=== PATIENT | female | born 1940 | race Caucasian/White ===

== ENCOUNTER 2016-08-15 12:36 | Emergency (ER) | payer MEDICARE, BC, OTHER ==
--- NOTE | 2016-08-15 13:15 | ED ---
Upper Extremity Pain - HPI Summary HPI Summary: Patient is a 76 year old female who states she was outside smoking this morning around 10:30 when she fell from standing from a sitting position on a rock. This was stated after she mentioned at first she was on a chair. She denies LOC , denies blacking out or passing out. She is not on a blood thinner and she denies low blood pressure at baseline. She is left hand dominant. She feels that after she arrived in the ED, the pain decreased in severity. The worst pain she notes is over the ulnar styloid, however she feels she hit her forearm too. She denies elbow pain, shoulder pain or finger pain. She denies numbness or tingling. - History of Current Complaint Hx Obtained From: Patient Mechanism Of Injury: Blunt Trauma, Fall From Height Of: - sitting position from a rock Onset/Duration: Started Hours Ago - 10:30am (about 3 hours ago) Timing: Constant Severity Initially: Moderate Severity Currently: Mild Pain Location: Forearm, Wrist Character: Sharp - over the wrist Aggravating Factor(s): Internal/External Rotation Alleviating Factor(s): Nothing Associated Signs & Symptoms: Positive: Swelling - over the medial wrist Related History: Dominant Hand Left - Risk Factors Non-Orthopedic Risk Factor: Negative DVT Risk Factors: Smoking Septic Arthritis Risk Factor: Negative Compartment Syndrome Risk Factors: Pain <Iraida Hernandez - Last Filed: 08/15/16 13:52> <Iván Dangelo - Last Filed: 08/15/16 14:57> - History of Current Complaint Chief Complaint: EDExtremityUpper Stated Complaint: RT ARM INJURY - Allergies/Home Medications Allergies/Adverse Reactions: Allergies Allergy/AdvReac Type Severity Reaction Status Date / Time Aspirin AdvReac ABDOMINAL Verified 08/15/16 12:49 DISCOMFORT PMH/Surg Hx/FS Hx/Imm Hx Previously Healthy: Yes Endocrine/Hematology History: Denies: Hx Anticoagulant Therapy, Hx Diabetes, Hx Thyroid Disease Cardiovascular History: Reports: Hx Hypercholesterolemia Denies: Hx Hypertension, Hx Pacemaker/ICD Respiratory History: Reports: Hx Asthma, Hx Chronic Obstructive Pulmonary Disease (COPD) GI History: Reports: Hx Gastroesophageal Reflux Disease, Hx Hiatal Hernia History: Reports: Other Problems/Disorders - urinary incontience Denies: Hx Renal Disease Musculoskeletal History: Reports: Hx Rheumatoid Arthritis, Hx Osteoporosis Sensory History: Denies: Hx Hearing Aid Neurological History: Denies: Hx Dementia, Hx Seizures Psychiatric History: Reports: Hx Depression, Hx Schizophrenia Denies: Hx Panic Disorder, Hx Substance Abuse - Surgical History Surgery Procedure, Year, and Place: bilat ankle fractures - L 12 yrs ago; R 3 yrs ago - Immunization History Date of Tetanus Vaccine: unk Infectious Disease History: No Infectious Disease History: Denies: Hx Hepatitis, Hx Human Immunodeficiency Virus (HIV), Traveled Outside the [place] in Last 30 Days - Social History Alcohol Use: None Substance Use Type: Reports: None Hx Tobacco Use: Yes Smoking Status (MU): Heavy Every Day Tobacco Smoker Type: Cigarettes <David,Iraida Celine - Last Filed: 08/15/16 13:52> Review of Systems Constitutional: Negative Cardiovascular: Negative Positive: Shortness Of Breath - at baseline. On 3L O2 at home Gastrointestinal: Negative Positive: Arthralgia, Myalgia Positive: Other - swelling over medial wrist Neurological: Negative Psychological: Normal All Other Systems Reviewed And Are Negative: Yes <DavidIraida - Last Filed: 08/15/16 13:52> Physical Exam - Summary Physical Exam Summary: Appearance: WDW, comfortable, pleasant, alert Skin: Soft dry skin, no lesions. Nailbeds pink with no cyanosis or clubbing. Eyes: AYANA, EOMI, Conjunctiva pink with no redness or exudates. Mouth: Dry mucosa Neck: Full range of motion. Thyroid not palpable. Trachea at midline. No lymphadenopathy. Pulm: Chest symmetrical expansion. No deformities on posterior chest wall. Oxygen at home/baseline. decreased breath sounds. CV: No JVD. No deformities on anterior chest wall. Heart sounds-RRR, Normal. Musculoskeletal: Full range of motion in lower extremities. Limited ROM of right wrist rotation. Normal flexion and extension of L wrist/ R wrist. Elbow without abnormalities, swelling. R elbow with normal ROM of flexion and extension. Pulses full and equal. No calf tenderness Neuro: Motor strength is 5/5 in upper and lower extremities bilaterally. A&OX3 Derm: No rashes or lesions noted. Psych: Logical, coherent Triage Information Reviewed: Yes Vital Signs On Initial Exam: Initial Vitals Temp Pulse Resp BP Pulse Ox 98.7 F 70 16 141/58 99 08/15/16 12:47 08/15/16 12:47 08/15/16 12:47 08/15/16 12:47 08/15/16 12:47 Vital Signs Reviewed: Yes Appearance: Positive: Well-Appearing, No Pain Distress, Thin, Cachectic Skin: Positive: Warm, Dry, Soft Head/Face: Positive: Normal Head/Face Inspection Eyes: Positive: Normal, EOMI, AYANA Neck: Positive: Supple, Nontender, No Lymphadenopathy Respiratory/Lung Sounds: Positive: Decreased Breath Sounds, Wheezes Cardiovascular: Positive: Normal, RRR Musculoskeletal: Positive: Limited @ - right wrist rotation/ flexion and extension of wrist OK, Pain @ - ulnar styloid <Iraida Hernandez - Last Filed: 08/15/16 13:52> Vital Signs On Initial Exam: Initial Vitals Temp Pulse Resp BP Pulse Ox 98.7 F 70 16 141/58 99 08/15/16 12:47 08/15/16 12:47 08/15/16 12:47 08/15/16 12:47 08/15/16 12:47 <Iván Dangelo - Last Filed: 08/15/16 14:57> Diagnostics - Vital Signs Vital Signs Temp Pulse Resp BP Pulse Ox 08/15/16 12:47 98.7 F 70 16 141/58 99 <Iraida Hernandez - Last Filed: 08/15/16 13:52> - Vital Signs Vital Signs Temp Pulse Resp BP Pulse Ox 08/15/16 14:43 98.8 F 08/15/16 14:39 60 97 08/15/16 14:37 157/63 08/15/16 14:31 169/132 08/15/16 14:00 143/113 08/15/16 13:30 110/59 08/15/16 13:14 67 99 08/15/16 13:10 64 99 08/15/16 13:09 146/80 08/15/16 12:47 98.7 F 70 16 141/58 99 <Iván Dangelo - Last Filed: 08/15/16 14:57> Course/Dx <Iraida Hernandez - Last Filed: 08/15/16 13:52> - Diagnoses Differential Diagnosis/HQI/PQRI: Positive: Contusion, Fracture (Closed) <Iván Dangelo - Last Filed: 08/15/16 14:57> - Diagnoses Provider Diagnoses: Contusion of right wrist Discharge <Iraida Hernandez - Last Filed: 08/15/16 13:52> <Iván Dangelo - Last Filed: 08/15/16 14:57> - Discharge Plan Condition: Stable Disposition: HOME Patient Education Materials: Wrist Injury (ED) Referrals: Valentino Correia MD [Primary Care Provider] - Additional Instructions: Dx: Wrist injury/contusion Rest, Ice and elevation. If symptoms persist, follow up with your PCP. Continue to wear brace today as needed for limited movement for comfort.
--- NOTE | 2016-08-15 13:34 | RAD ---
INDICATION: Fall. Wrist injury COMPARISON: None TECHNIQUE: AP, lateral, and oblique views were obtained. FINDINGS: There is no convincing evidence of acute fracture. There is osteoarthritic change about the radiocarpal joint with sclerosis and irregularities about the radial styloid. There are irregularities about the distal pole of the navicular and the carpometacarpal articulation articulation. No additional findings. IMPRESSION: ADVANCED OSTEOARTHRITIC CHANGE ABOUT THE RADIAL ASPECT OF THE HAND AND WRIST. SUGGEST FOLLOW-UP INDICATED.
[2016-08-15 14:41] VITALS: BP 157/63
--- NOTE | 2016-08-15 14:57 | ED ---
Marcos Correa Soohyun, scribed for Iván Dangelo MD on 08/15/16 at 1319 . Progress - Progress Note Progress Note: This 76 y/o female presents to ED for RUE wrist injury after falling from 3-4 feet. Pt states that she was sitting outside smoking cigarette [employer] and attempting to stand up from sitting position when she loss her balance and fell to her right side. She is not complaining of right wrist pain. She is left-hand- dominant. X-ray RUE wrist is currently pending. - EKG/XRAY/CT XRAY: RUE wrist Xray Comments: NEGATIVE FX. Physical Exam - Summary Physical Exam Summary: The patient is well-nourished in no acute distress and in no acute pain. The skin is warm and dry and skin color reflects adequate perfusion. HEENT: The head is normocephalic and atraumatic. The pupils are equal and reactive. Neck is supple with full range of motion and non-tender. Respiratory: Chest is non-tender. Breath sounds present. Musculoskeletal: mild swelling at right distal radius. FROM. No shoulder or elbow involvement. No snuff box tenderness. Neurological: Patient is alert and oriented to person, place and time. The patient has symmetrical motor strength in all four extremities. Cranial nerves are grossly intact. Deep tendon reflexes are symmetrical and equal in all four extremities. Psychiatric: The patient has an appropriate affect and does not exhibit any anxiety or depression. Triage Information Reviewed: Yes Vital Signs On Initial Exam: Initial Vitals Temp Pulse Resp BP Pulse Ox 98.7 F 70 16 141/58 99 08/15/16 12:47 08/15/16 12:47 08/15/16 12:47 08/15/16 12:47 08/15/16 12:47 Vital Signs Reviewed: Yes Re-Evaluation - Re-Evaluation First Eval Re-Evaluation Time: 14:01 Comment: in room with ALEXY Hernandez to re-evaluate the pt. Course/Dx - Course Course Of Treatment: X-ray result indicates negative Fx on RUE wrist. Pt will be discharged home with splint and outpatient f/u with his PCP. Pt was re- evaluated and shared with X-ray imaging result. Plan of care is discussed. Dx is contusion at RUE wrist. - Diagnoses Provider Diagnoses: Contusion of right wrist The documentation as recorded by the scribeMarcos Soohyun accurately reflects the service I personally performed and the decisions made by me, Iván Dangelo MD.
== END 2016-08-15 14:43 | disposition home or self-care (01) ==
LOC: ED 12:36
DX: S60.211A Contusion of right wrist, initial encounter (principal); W17.89XA Other fall from one level to another, initial encounter; Y92.9 Unspecified place or not applicable; F17.210 Nicotine dependence, cigarettes, uncomplicated
CPT/HCPCS: 99282

== ENCOUNTER 2017-10-25 20:30 | Emergency (ER) | payer MEDICARE, OTHER ==
[2017-10-25] MEDS ORDERED: Acetaminophen TAB* 325 MG PO ONE (21:13)
[2017-10-25] MEDS ORDERED: Albuterol/Ipratropium NEB.SOL* Albuterol 2.5 MG/Ipratropium 0.5 MG 3 ML INH PRN (21:13)
[2017-10-25] MEDS ORDERED: Albuterol 2.5 MG/3 ML NEB.SOL* (0.083%) INH PRN (21:13)
[2017-10-25] MEDS ORDERED: NS 0.9% 1000 ML* 1,000 ML IV ONE (21:15)
--- NOTE | 2017-10-25 21:45 | RAD ---
INDICATION: Shortness of breath. COMPARISON: Comparison is made with a prior study from December 18, 2014. TECHNIQUE: A portable view of the chest was obtained. FINDINGS: The heart is within normal limits in size. There is a retrocardiac density which is unchanged most consistent with a hiatal hernia. The lungs are underinflated and clear. No pleural effusion is seen. IMPRESSION: NO EVIDENCE FOR ACUTE DISEASE.
[2017-10-25 22:04] LABS: ABS Basophils 0.1 10^3/ul (0-0.2); ABS Eosinophils 0.1 10^3/ul (0-0.6); ABS Lymphocytes 2.2 10^3/ul (1.0-4.8); ABS Monocytes 0.5 10^3/ul (0-0.8); ABS Neutrophils 5.6 10^3/ul (1.5-7.7); ABS Nucleated RBC 0 10^3/ul; Eosinophil % 1.1 % (0-6); Hematocrit 37 % (35-47); Hemoglobin 11.6 g/dl (12.0-16.0); Mean Corpuscular HGB Conc 32 g/dl (31-36); Mean Corpuscular Hemoglobin 25 pg (27-31); Mean Corpuscular Volume 80 fL (80-97); Mean Platelet Volume 9 um3 (7.4-10.4); Nucleated Red Blood Cells % 0.2; Platelet Count 212 10^3/ul (150-450); Red Blood Count 4.58 10^6/ul (4.0-5.4); Red Cell Distribution Width 20 % (10.5-15); White Blood Count 8.6 10^3/ul (3.5-10.8)
[2017-10-25 22:06] LABS: Urine Appearance Clear; Urine Blood Negative (Negative); Urine Color Yellow; Urine Ketones Negative (Negative); Urine Protein Negative (Negative); Urine Specific Gravity 1.012 (1.010-1.030); Urine Urobilinogen Negative (Negative)
[2017-10-25 22:13] LABS: INR 0.93 (0.77-1.02)
[2017-10-25 22:20] LABS: EGFR Non-African American 114.6 (>60)
--- NOTE | 2017-10-25 23:43 | ED ---
Keon Correa Abhishek, scribed for Lisa Luque MD on 10/25/17 at 2308 . HPI Febrile Illness - HPI Summary HPI Summary: The pt is a 77 y/o female with a chief complaint of a fever. The pt has had symptoms since one hour ago. She lives in a long-term. The patient rates the pain 0/10 in severity. Symptoms aggravated by nothing. Symptoms alleviated by nothing. Patient reports SOB. Patient denies vomiting, and coughing. O2 liters at home (3 L). No medications taken according to the pt. Pertinent PMHX includes COPD and CVA 3 y ago. - History of Current Complaint Chief Complaint: EDFluSymptoms Time Seen by Provider: 10/25/17 20:54 Pain Intensity: 0 - Allergy/Home Medications Allergies/Adverse Reactions: Allergies Allergy/AdvReac Type Severity Reaction Status Date / Time MS Aspirin [Aspirin] AdvReac ABDOMINAL Verified 08/15/16 12:49 DISCOMFORT Home Medications: Home Medications Alendronate (NF) [Fosamax (NF)] 70 mg PO WEEKLY 10/25/17 [History Confirmed ] Calcium Carbonate/Vitamin D2 [Oyster Shell Calcium-Vit D Tab] 1 each PO BID [History Confirmed 10/25/17] Omeprazole CAP* [Prilosec CAP* 20 MG] 40 mg PO DAILY 10/25/17 [History Confirmed 10/25/17] PMH/Surg Hx/FS Hx/Imm Hx Endocrine/Hematology History: Denies: Hx Anticoagulant Therapy, Hx Diabetes, Hx Thyroid Disease Cardiovascular History: Reports: Hx Hypercholesterolemia Denies: Hx Hypertension, Hx Pacemaker/ICD Respiratory History: Reports: Hx Asthma, Hx Chronic Obstructive Pulmonary Disease (COPD) GI History: Reports: Hx Gastroesophageal Reflux Disease, Hx Hiatal Hernia History: Reports: Other Problems/Disorders - urinary incontience Denies: Hx Renal Disease Musculoskeletal History: Reports: Hx Rheumatoid Arthritis, Hx Osteoporosis Sensory History: Denies: Hx Hearing Aid Neurological History: Denies: Hx Dementia, Hx Seizures Psychiatric History: Reports: Hx Depression, Hx Schizophrenia Denies: Hx Panic Disorder, Hx Substance Abuse - Surgical History Surgery Procedure, Year, and Place: bilat ankle fractures - L 12 yrs ago; R 3 yrs ago - Immunization History Date of Tetanus Vaccine: unk Infectious Disease History: No Infectious Disease History: Denies: Hx Hepatitis, Hx Human Immunodeficiency Virus (HIV), Traveled Outside the [place] in Last 30 Days - Family History Family History: Bone Marrow Cancer;. FHx reviewed and non contributory - Social History Alcohol Use: None Substance Use Type: Reports: None Hx Tobacco Use: Yes Smoking Status (MU): Heavy Every Day Tobacco Smoker Type: Cigarettes Review of Systems Positive: Fever Eyes: Negative ENT: Negative Cardiovascular: Negative Positive: Shortness Of Breath. Negative: Cough Negative: Vomiting Genitourinary: Negative Musculoskeletal: Negative Skin: Negative Neurological: Negative Psychological: Normal All Other Systems Reviewed And Are Negative: Yes Physical Exam - Summary Physical Exam Summary: VITAL SIGNS: Reviewed. GENERAL: ~Patient is a well-developed and nourished (FEMALE) who is lying comfortable in the stretcher. Patient is not in any acute respiratory distress. HEAD AND FACE: No signs of trauma. No ecchymosis, hematomas or skull depressions. No sinus tenderness. EYES: PERRLA, EOMI x 2, No injected conjunctiva, no nystagmus. EARS: Hearing grossly intact. Ear canals and tympanic membranes are within normal limits. MOUTH: Oropharynx within normal limits. NECK: Supple, trachea is midline, no adenopathy, no JVD, no carotid bruit, no c- spine tenderness, neck with full ROM. CHEST: Symmetric, n SKIN: Dry and warm o tenderness at palpation LUNGS: Decreased breath sounds bilaterally CVS: Regular rate and rhythm, S1 and S2 present, no murmurs or gallops appreciated. ABDOMEN: Soft, non-tender. No signs of distention. No rebound no guarding, and no masses palpated. Bowel sounds are normal. EXTREMITIES: FROM in all major joints, no edema, no cyanosis or clubbing, NEURO: Pt has dysarthria old, body aches and pains Triage Information Reviewed: Yes Vital Signs On Initial Exam: Initial Vitals Temp Pulse Resp BP Pulse Ox 99.1 F 71 24 167/75 96 10/25/17 20:47 10/25/17 20:47 10/25/17 20:47 10/25/17 20:47 10/25/17 20:47 Vital Signs Reviewed: Yes Diagnostics - Vital Signs Vital Signs Temp Pulse Resp BP Pulse Ox 10/25/17 22:54 61 12 99 10/25/17 20:47 99.1 F 71 24 167/75 96 - Laboratory Lab Results: Lab Results 10/25/17 10/25/17 10/25/17 Range/Units 21:45 21:45 21:45 WBC (3.5-10.8) 10^3/ul RBC (4.0-5.4) 10^6/ul Hgb (12.0-16.0) g/dl Hct (35-47) % MCV (80-97) fL MCH (27-31) pg MCHC (31-36) g/dl RDW (10.5-15) % Plt Count (150-450) 10^3/ul MPV (7.4-10.4) um3 Neut % (Auto) (38-83) % Lymph % (Auto) (25-47) % Weston % (Auto) (0-7) % Eos % (Auto) (0-6) % Baso % (Auto) (0-2) % Absolute Neuts (auto) (1.5-7.7) 10^3/ul Absolute Lymphs (auto) (1.0-4.8) 10^3/ul Absolute Monos (auto) (0-0.8) 10^3/ul Absolute Eos (auto) (0-0.6) 10^3/ul Absolute Basos (auto) (0-0.2) 10^3/ul Absolute Nucleated RBC 10^3/ul Nucleated RBC % INR (Anticoag Therapy) 0.93 (0.77-1.02) APTT 37.5 H (26.0-36.3) seconds Sodium 136 (133-145) mmol/L Potassium 3.9 (3.5-5.0) mmol/L Chloride 100 L (101-111) mmol/L Carbon Dioxide 32 (22-32) mmol/L Anion Gap 4 (2-11) mmol/L BUN 13 (6-24) mg/dL Creatinine 0.52 (0.51-0.95) mg/dL Est GFR ( Amer) 147.4 (>60) Est GFR (Non-Af Amer) 114.6 (>60) BUN/Creatinine Ratio 25.0 H (8-20) Glucose 96 (70-100) mg/dL Lactic Acid (0.5-2.0) mmol/L Calcium 9.4 (8.6-10.3) mg/dL Total Bilirubin 0.40 (0.2-1.0) mg/dL AST 14 (13-39) U/L ALT 10 (7-52) U/L Alkaline Phosphatase 49 (34-104) U/L Total Creatine Kinase 92 (10-223) U/L Troponin I 0.01 (<0.04) ng/mL C-Reactive Protein 1.99 (< 5.00) mg/L Total Protein 7.0 (6.4-8.9) g/dL Albumin 3.9 (3.2-5.2) g/dL Globulin 3.1 (2-4) g/dL Albumin/Globulin Ratio 1.3 (1-3) Urine Color Yellow Urine Appearance Clear Urine pH 7.0 (5-9) Ur Specific Hull 1.012 (1.010-1.030) Urine Protein Negative (Negative) Urine Ketones Negative (Negative) Urine Blood Negative (Negative) Urine Nitrate Negative (Negative) Urine Bilirubin Negative (Negative) Urine Urobilinogen Negative (Negative) Ur Leukocyte Esterase Negative (Negative) Urine Glucose Negative (Negative) Influenza A (Rapid) (Negative) Influenza B (Rapid) (Negative) 10/25/17 10/25/17 10/25/17 Range/Units 21:45 21:45 22:12 WBC 8.6 (3.5-10.8) 10^3/ul RBC 4.58 (4.0-5.4) 10^6/ul Hgb 11.6 L (12.0-16.0) g/dl Hct 37 (35-47) % MCV 80 (80-97) fL MCH 25 L (27-31) pg MCHC 32 (31-36) g/dl RDW 20 H (10.5-15) % Plt Count 212 (150-450) 10^3/ul MPV 9 (7.4-10.4) um3 Neut % (Auto) 65.8 (38-83) % Lymph % (Auto) 26.0 (25-47) % Weston % (Auto) 6.1 (0-7) % Eos % (Auto) 1.1 (0-6) % Baso % (Auto) 1.0 (0-2) % Absolute Neuts (auto) 5.6 (1.5-7.7) 10^3/ul Absolute Lymphs (auto) 2.2 (1.0-4.8) 10^3/ul Absolute Monos (auto) 0.5 (0-0.8) 10^3/ul Absolute Eos (auto) 0.1 (0-0.6) 10^3/ul Absolute Basos (auto) 0.1 (0-0.2) 10^3/ul Absolute Nucleated RBC 0 10^3/ul Nucleated RBC % 0.2 INR (Anticoag Therapy) (0.77-1.02) APTT (26.0-36.3) seconds Sodium (133-145) mmol/L Potassium (3.5-5.0) mmol/L Chloride (101-111) mmol/L Carbon Dioxide (22-32) mmol/L Anion Gap (2-11) mmol/L BUN (6-24) mg/dL Creatinine (0.51-0.95) mg/dL Est GFR ( Amer) (>60) Est GFR (Non-Af Amer) (>60) BUN/Creatinine Ratio (8-20) Glucose (70-100) mg/dL Lactic Acid 0.6 (0.5-2.0) mmol/L Calcium (8.6-10.3) mg/dL Total Bilirubin (0.2-1.0) mg/dL AST (13-39) U/L ALT (7-52) U/L Alkaline Phosphatase (34-104) U/L Total Creatine Kinase (10-223) U/L Troponin I (<0.04) ng/mL C-Reactive Protein (< 5.00) mg/L Total Protein (6.4-8.9) g/dL Albumin (3.2-5.2) g/dL Globulin (2-4) g/dL Albumin/Globulin Ratio (1-3) Urine Color Urine Appearance Urine pH (5-9) Ur Specific Hull (1.010-1.030) Urine Protein (Negative) Urine Ketones (Negative) Urine Blood (Negative) Urine Nitrate (Negative) Urine Bilirubin (Negative) Urine Urobilinogen (Negative) Ur Leukocyte Esterase (Negative) Urine Glucose (Negative) Influenza A (Rapid) Negative (Negative) Influenza B (Rapid) Negative (Negative) Result Diagrams: 10/25/17 21:45 10/25/17 21:45 Lab Statement: Any lab studies that have been ordered have been reviewed, and results considered in the medical decision making process. - Radiology Chest X-ray Radiology Interpretation Completed By: Radiologist - CXR reveals, per radiologist, NO EVIDENCE FOR ACUTE DISEASE. ED physician has reviewed this radiology report and agrees. Course/Dx - Course Course Of Treatment: The pt is a 77 y/o female with a chief complaint of a fever. The pt also reports of SOB and has a pertinent PMHx of COPD and CVA. A chest x-ray was taken in the [facility]. The pt will be discharged home with a dx of flu-like illness and viral syndrome. We recommended taking tylenol as needed for fever. - Diagnoses Provider Diagnoses: Flu-like symptoms, Viral syndrome Discharge - Discharge Plan Condition: Stable Disposition: HOME Patient Education Materials: Fever in Adults (ED), Viral Syndrome (ED) Referrals: Valentino Correia MD [Primary Care Provider] - (Follow up with PCP within 1 to 2 days.) Additional Instructions: RETURN TO EMERGENCY DEPARTMENT FOR ANY NEW OR WORSENING SYMPTOMS The documentation as recorded by the Keon orozco Abhishek accurately reflects the service I personally performed and the decisions made by me, Lisa Luque MD.
[2017-10-25 23:51] VITALS: BP 141/63
== END 2017-10-26 00:08 | disposition home or self-care (01) ==
LOC: ED 20:30
DX: J11.1 Influenza due to unidentified influenza virus with other respiratory manifestations (principal); B34.9 Viral infection, unspecified; R50.9 Fever, unspecified; Z87.19 Personal history of other diseases of the digestive system; F17.210 Nicotine dependence, cigarettes, uncomplicated; R06.02 Shortness of breath
CPT/HCPCS: 36415; 71045; 80053; 81003; 82550; 83605; 84484; 85025; 85610; 85730; 86140; 87040; 87502; 94640; 99283; A9270-GY

== ENCOUNTER 2017-11-07 20:20 | Emergency (ER) | payer MEDICARE, MEDICAID ==
[2017-11-07] MEDS ORDERED: NS 0.9% 1000 ML* 1,000 ML IV ONE (20:45)
[2017-11-07 21:13] LABS: ABS Basophils 0.1 10^3/ul (0-0.2); ABS Eosinophils 0.2 10^3/ul (0-0.6); ABS Lymphocytes 2.1 10^3/ul (1.0-4.8); ABS Monocytes 0.5 10^3/ul (0-0.8); ABS Neutrophils 4.3 10^3/ul (1.5-7.7); ABS Nucleated RBC 0 10^3/ul; Eosinophil % 2.3 % (0-6); Hematocrit 34 % (35-47); Hemoglobin 11.1 g/dl (12.0-16.0); Lymphocyte % 28.8 % (25-47); Mean Corpuscular HGB Conc 32 g/dl (31-36); Mean Corpuscular Hemoglobin 26 pg (27-31); Mean Corpuscular Volume 80 fL (80-97); Mean Platelet Volume 8.7 um3 (7.4-10.4); Nucleated Red Blood Cells % 0; Platelet Count 186 10^3/ul (150-450); Red Blood Count 4.29 10^6/ul (4.0-5.4); Red Cell Distribution Width 20 % (10.5-15); White Blood Count 7.2 10^3/ul (3.5-10.8)
--- NOTE | 2017-11-07 21:23 | RAD ---
INDICATION: Weakness and shortness of breath COMPARISON: Most recent comparison chest x-ray is dated October 25, 2017 TECHNIQUE: PA and lateral views of the chest were obtained. FINDINGS: The heart and mediastinum are normal in size and contour. The lungs are grossly clear. There is no evidence of large pleural effusion. Visualized bones are normal for the patient's age. Lateral view images reveal and at least moderate size hiatal hernia. There is no radiographic evidence of free air beneath the diaphragm IMPRESSION: No radiographic evidence of acute cardiopulmonary disease.
[2017-11-07 21:24] LABS: Urine Appearance Clear; Urine Blood Negative (Negative); Urine Color Yellow; Urine Ketones Negative (Negative); Urine Protein Negative (Negative); Urine Specific Gravity 1.014 (1.010-1.030); Urine Urobilinogen Negative (Negative)
[2017-11-07 21:27] LABS: EGFR Non-African American 97.2 (>60)
[2017-11-07 21:44] VITALS: BP 129/59
--- NOTE | 2017-11-08 04:29 | ED ---
Andrew Correa Nilda, scribed for Matias Morales MD on 11/07/17 at 2050 . Complex/Multi-Sys Presentation - HPI Summary HPI Summary: This patient is a 77 year old F BIBA from [facility] with a chief complaint of constant acute generalized weakness this evening. The patient rates the pain 0/10 in severity. Symptoms aggravated and alleviated by nothing. Patient reports fever, suprapubic abd pain, and cough. She denies CP, N/V, and abnormal urinary symptoms. Pt is on home O2. Pt states she is a smoker. On review of records, pt was here on the 10/25/17 for same complaints with normal lab results. - History Of Current Complaint Chief Complaint: EDWeakness Time Seen by Provider: 11/07/17 20:33 Hx Obtained From: Patient, Medical Records Onset/Duration: Sudden Onset, Lasting Hours, Still Present Timing: Constant Location: Pain At: - suprapubic abd pain Aggravating Factor(s): nothing Alleviating Factor(s): nothing Associated Signs And Symptoms: Positive: Other - generalized weakness, fever, abd pain, and cough. She denies CP, N/V, and abnormal urinary symptoms - Allergies/Home Medications Allergies/Adverse Reactions: Allergies Allergy/AdvReac Type Severity Reaction Status Date / Time aspirin Allergy Abdominal Verified 11/07/17 21:43 Pain Home Medications: Home Medications Alendronate (NF) [Fosamax (NF)] 70 mg PO WEEKLY 11/07/17 [History Confirmed ] Aspirin EC Low Dose* [Ecotrin EC Low Dose 81 MG*] 81 mg PO DAILY 11/07/17 [ History Confirmed 11/07/17] Atorvastatin* [Lipitor*] 40 mg PO DAILY 11/07/17 [History Confirmed 11/07/17] Calcium Carbonate/Vitamin D2 [Oyster Shell Calcium-Vit D Tab] 1 tab PO BID 11/07 [History Confirmed 11/07/17] Docusate CAP* [Colace Cap*] 200 mg PO DAILY 11/07/17 [History Confirmed 11/07/17 ] Ibuprofen TAB* [Motrin TAB* 600 MG] 600 mg PO Q6H PRN 11/07/17 [History Confirmed 11/07/17] Nicotine PATCH 14 MG/24 HR* 14 mg TRANSDERM DAILY 11/07/17 [History Confirmed ] OLANzapine TAB* [Zyprexa 10 MG TAB*] 15 mg PO DAILY 11/07/17 [History Confirmed 11/07/17] Omeprazole CAP* [Prilosec CAP* 20 MG] 40 mg PO DAILY 11/07/17 [History Confirmed 11/07/17] Oxybutynin TAB* [Ditropan TAB*] 5 mg PO TID 11/07/17 [History Confirmed 11/07/17 ] PARoxetine HCL TAB* [Paxil TAB*] 30 mg PO DAILY 11/07/17 [History Confirmed ] Tiotropium CAP.INH* [Spiriva CAP.INH*] 1 cap PO DAILY 11/07/17 [History Confirmed 11/07/17] PMH/Surg Hx/FS Hx/Imm Hx Endocrine/Hematology History: Denies: Hx Anticoagulant Therapy, Hx Diabetes, Hx Thyroid Disease Cardiovascular History: Reports: Hx Hypercholesterolemia Denies: Hx Hypertension, Hx Pacemaker/ICD Respiratory History: Reports: Hx Asthma, Hx Chronic Obstructive Pulmonary Disease (COPD) GI History: Reports: Hx Gastroesophageal Reflux Disease, Hx Hiatal Hernia History: Reports: Other Problems/Disorders - urinary incontience Denies: Hx Renal Disease Musculoskeletal History: Reports: Hx Rheumatoid Arthritis, Hx Osteoporosis Sensory History: Denies: Hx Hearing Aid Neurological History: Denies: Hx Dementia, Hx Seizures Psychiatric History: Reports: Hx Depression, Hx Schizophrenia Denies: Hx Panic Disorder, Hx Substance Abuse - Surgical History Surgery Procedure, Year, and Place: bilat ankle fractures - L 12 yrs ago; R 3 yrs ago - Immunization History Date of Tetanus Vaccine: unk Infectious Disease History: No Infectious Disease History: Denies: Hx Hepatitis, Hx Human Immunodeficiency Virus (HIV), Traveled Outside the [place] in Last 30 Days - Family History Family History: Bone Marrow Cancer;. FHx reviewed and non contributory - Social History Occupation: Retired Lives: Assisted Living - [facility] Alcohol Use: None Substance Use Type: Reports: None Hx Tobacco Use: Yes Smoking Status (MU): Heavy Every Day Tobacco Smoker Type: Cigarettes Review of Systems Positive: Fever Negative: Chest Pain Positive: Cough Positive: Abdominal Pain - suprapubic. Negative: Vomiting, Nausea Positive: no symptoms reported Positive: Weakness All Other Systems Reviewed And Are Negative: Yes Physical Exam - Summary Physical Exam Summary: Appearance: Well appearing, no pain distress Skin: warm, dry, reflects adequate perfusion Head/face: normal Eyes: EOMI, AYANA ENT: normal, Moist mucous membranes Neck: supple, non-tender Respiratory: breath sounds present, Very mild expiratory wheezes in left base, Globally diminished breath sounds. Cardiovascular: RRR, pulses symmetrical Abdomen: non-tender, soft; Pt states suprapubic pain but no tenderness on palpation Bowel Sounds: present Musculoskeletal: normal, strength/ROM intact Neuro: Mild cognitive impairment, no focal deficit. Triage Information Reviewed: Yes Vital Signs On Initial Exam: Initial Vitals Temp Pulse Resp BP Pulse Ox 97.4 F 66 16 130/59 95 11/07/17 20:29 11/07/17 20:29 11/07/17 20:29 11/07/17 20:29 11/07/17 20:29 Vital Signs Reviewed: Yes Diagnostics - Vital Signs Vital Signs Temp Pulse Resp BP Pulse Ox 11/07/17 20:29 97.4 F 66 16 130/59 95 - Laboratory Lab Results: Lab Results 11/07/17 11/07/17 11/07/17 Range/Units 20:50 20:50 20:50 WBC 7.2 (3.5-10.8) 10^3/ul RBC 4.29 (4.0-5.4) 10^6/ul Hgb 11.1 L (12.0-16.0) g/dl Hct 34 L (35-47) % MCV 80 (80-97) fL MCH 26 L (27-31) pg MCHC 32 (31-36) g/dl RDW 20 H (10.5-15) % Plt Count 186 (150-450) 10^3/ul MPV 8.7 (7.4-10.4) um3 Neut % (Auto) 60.7 (38-83) % Lymph % (Auto) 28.8 (25-47) % [place] % (Auto) 7.1 H (0-7) % Eos % (Auto) 2.3 (0-6) % Baso % (Auto) 1.1 (0-2) % Absolute Neuts (auto) 4.3 (1.5-7.7) 10^3/ul Absolute Lymphs (auto) 2.1 (1.0-4.8) 10^3/ul Absolute Monos (auto) 0.5 (0-0.8) 10^3/ul Absolute Eos (auto) 0.2 (0-0.6) 10^3/ul Absolute Basos (auto) 0.1 (0-0.2) 10^3/ul Absolute Nucleated RBC 0 10^3/ul Nucleated RBC % 0 Sodium 138 L (139-145) mmol/L Potassium 3.7 (3.5-5.0) mmol/L Chloride 101 (101-111) mmol/L Carbon Dioxide 30 (22-32) mmol/L Anion Gap 7 (2-11) mmol/L BUN 12 (6-24) mg/dL Creatinine 0.60 (0.51-0.95) mg/dL Est GFR ( Amer) 125.0 (>60) Est GFR (Non-Af Amer) 97.2 (>60) BUN/Creatinine Ratio 20.0 (8-20) Glucose 141 H (70-100) mg/dL Calcium 9.1 (8.6-10.3) mg/dL Urine Color Yellow Urine Appearance Clear Urine pH 6.0 (5-9) Ur Specific Nelson 1.014 (1.010-1.030) Urine Protein Negative (Negative) Urine Ketones Negative (Negative) Urine Blood Negative (Negative) Urine Nitrate Negative (Negative) Urine Bilirubin Negative (Negative) Urine Urobilinogen Negative (Negative) Ur Leukocyte Esterase Trace A (Negative) Urine WBC (Auto) Trace(0-5/hpf) (Absent) Urine RBC (Auto) 1+(3-5/hpf) A (Absent) Ur Squamous Epith Cells Present A (Absent) Urine Bacteria Absent (Absent) Urine Glucose Negative (Negative) Result Diagrams: 11/07/17 20:50 11/07/17 20:50 Lab Statement: Any lab studies that have been ordered have been reviewed, and results considered in the medical decision making process. - Radiology CXR Radiology Interpretation Completed By: Radiologist - No radiographic evidence of acute cardiopulmonary disease. Dr. Morales has reviewed this report. Complex Multi-Symp Course/Dx Course Of Treatment: pt with cognitive impairment/MH prob. Abrupt onset of vague /non-specific sx. Very benign appearing. No focal findings. NIHSS 0. Tx here with relief. No findings on labs. Had nearly same presentation 2wk ago. - Diagnoses Provider Diagnoses: Generalized weakness Discharge - Sign-Out/Discharge Documenting (check all that apply): Discharge - D/C home - Discharge Plan Condition: Stable Disposition: HOME Patient Education Materials: Weakness (ED) Referrals: Valentino Correia MD [Primary Care Provider] - Additional Instructions: Call your doctor in the morning. Return if worse, new symptoms or other concerns. - Billing Disposition and Condition Condition: STABLE Disposition: HOME The documentation as recorded by the Andrew orozco Nilda accurately reflects the service I personally performed and the decisions made by , Matias Morales MD.
== END 2017-11-07 22:12 | disposition home or self-care (01) ==
LOC: ED 20:20
DX: R53.1 Weakness (principal); R50.9 Fever, unspecified; R10.9 Unspecified abdominal pain; R05 Cough
CPT/HCPCS: 36415; 71046; 80048; 81003; 81015; 85025; 87086; 99283

== ENCOUNTER 2018-03-26 14:29 | Emergency (ER) | payer MEDICARE, BC, MEDICAID ==
--- NOTE | 2018-03-26 15:04 | ED ---
Adult Trauma - HPI Summary HPI Summary: 78-year-old female presents with fall today. She states that her left ankle was numb and so she fell and she attempted to walk on it. She states that she lost hold of her walker and it fell over and she stumbled on top of it. States she hit the posterior aspect of her head. She denies any loss consciousness. No nausea and vomiting. She is not blood thinners. She denies any neck pain. She admits to lower back pain. She admits to bilateral knee pain. She states the numbness has resolved. She denies any chest pain or shortness breath. States she is chronically on 4 L oxygen at home and that her baseline SOB is unchanged. No bowel pain. She states that the knee and back pain have been resolving but still has headache. no other injury. She has history of COPD. - History of Current Complaint Chief Complaint: EDBackInjuryPain Stated Complaint: FALL Time Seen by Provider: 03/26/18 14:51 Pain Intensity: 3 - Allergy/Home Medications Allergies/Adverse Reactions: Allergies Allergy/AdvReac Type Severity Reaction Status Date / Time aspirin Allergy Abdominal Verified 11/07/17 21:43 Pain PMH/Surg Hx/FS Hx/Imm Hx Endocrine/Hematology History: Denies: Hx Anticoagulant Therapy, Hx Diabetes, Hx Thyroid Disease Cardiovascular History: Reports: Hx Hypercholesterolemia Denies: Hx Hypertension, Hx Pacemaker/ICD Respiratory History: Reports: Hx Asthma, Hx Chronic Obstructive Pulmonary Disease (COPD) GI History: Reports: Hx Gastroesophageal Reflux Disease, Hx Hiatal Hernia History: Reports: Other Problems/Disorders - urinary incontience Denies: Hx Renal Disease Musculoskeletal History: Reports: Hx Rheumatoid Arthritis, Hx Osteoporosis Sensory History: Denies: Hx Hearing Aid Neurological History: Denies: Hx Dementia, Hx Seizures Psychiatric History: Reports: Hx Depression, Hx Schizophrenia Denies: Hx Panic Disorder, Hx Substance Abuse - Surgical History Surgery Procedure, Year, and Place: bilat ankle fractures - L 12 yrs ago; R 3 yrs ago - Immunization History Date of Tetanus Vaccine: unk Infectious Disease History: No Infectious Disease History: Denies: Hx Hepatitis, Hx Human Immunodeficiency Virus (HIV), Traveled Outside the [place] in Last 30 Days - Family History Family History: Bone Marrow Cancer;. FHx reviewed and non contributory - Social History Alcohol Use: None Substance Use Type: Reports: None Hx Tobacco Use: Yes Smoking Status (MU): Heavy Every Day Tobacco Smoker Type: Cigarettes Review of Systems Negative: Fever Negative: Chest Pain Negative: Shortness Of Breath Positive: Myalgia - knee pain and back pain Positive: Headache All Other Systems Reviewed And Are Negative: Yes Physical Exam Triage Information Reviewed: Yes Vital Signs On Initial Exam: Initial Vitals Temp Pulse Resp BP Pulse Ox 98.2 F 81 16 141/72 98 03/26/18 14:34 03/26/18 14:34 03/26/18 14:34 03/26/18 14:34 03/26/18 14:34 Vital Signs Reviewed: Yes Appearance: Positive: Well-Appearing Skin: Positive: Warm, Dry Head/Face: Positive: Normal Head/Face Inspection Eyes: Positive: Normal, EOMI, AYANA, Conjunctiva Clear ENT: Positive: Normal ENT inspection, Pharynx normal, TMs normal Respiratory/Lung Sounds: Positive: Clear to Auscultation, Breath Sounds Present Cardiovascular: Positive: Normal, RRR Abdomen Description: Positive: Nontender, Soft Bowel Sounds: Positive: Present Musculoskeletal: Positive: Other - abrasion to bilateral knees, good pulses, has chronic deformity to left ankle unchanged, tenderness lower back, nontender neck, full ROM neck, sensation grossly intact Neurological: Positive: Sensory/Motor Intact, Alert, Oriented to Person Place, Time, CN Intact II-III Psychiatric: Positive: Normal Diagnostics - Vital Signs Vital Signs Temp Pulse Resp BP Pulse Ox 03/26/18 14:34 98.2 F 81 16 141/72 98 - Laboratory Lab Statement: Any lab studies that have been ordered have been reviewed, and results considered in the medical decision making process. - Radiology knee Xray Interpretation: No Acute Changes - IMPRESSION: ADVANCED OSTEOARTHRITIC CHANGE ABOUT EACH KNEE WITH SMALL LEFT-SIDED JOINT EFFUSION. NO ACUTE FINDINGS. Radiology Interpretation Completed By: Radiologist - CT brain CT Interpretation: No Acute Changes CT Interpretation Completed By: Radiologist cervical CT Interpretation: No Acute Changes CT Interpretation Completed By: Radiologist lumbar CT Interpretation: No Acute Changes CT Interpretation Completed By: Radiologist Adult Trauma Course/Dx - Course Course Of Treatment: 78-year-old female presents with fall today. She states that her left ankle was numb and so she fell and she attempted to walk on it. She states that she lost hold of her walker and it fell over and she stumbled on top of it. States she hit the posterior aspect of her head. She denies any loss consciousness. No nausea and vomiting. She is not blood thinners. She denies any neck pain. She admits to lower back pain. She admits to bilateral knee pain. She states the numbness has resolved. She denies any chest pain or shortness breath. States she is chronically on 4 L oxygen at home and that her baseline SOB is unchanged. No bowel pain. She states that the knee and back pain have been resolving but still has headache. no other injury. on exam normal neuro exam. nontender neck. minmially tenderness lower back and knees with full ROM. CT brain normal. knee osteoarthritis. CT neck and back Degenerative changes. will have treat with tyenlol and ice and follow up with primary. patient understand and agrees with plan. - Diagnoses Differential Diagnosis/HQI/PQRI: Positive: Abrasion(s), Contusion(s), Fracture Provider Diagnoses: Fall, Head injury, Knee pain, Back pain Discharge - Sign-Out/Discharge Documenting (check all that apply): Patient Departure - Discharge Plan Condition: Good Disposition: HOME Patient Education Materials: Head Injury (ED), R.I.C.E. Treatment (ED) Referrals: Valentino Correia MD [Primary Care Provider] - Additional Instructions: Place ice on area as needed Take Tylenol for headache every 6 hours Modify activities as tolerated Follow up with primary within 5 days Return to ED if develop vomiting, severe headache, change in behavior, or any new or worsening symptoms - Billing Disposition and Condition Condition: GOOD Disposition: Home
--- NOTE | 2018-03-26 15:43 | RAD ---
INDICATION: Bilateral knee pain. Fall. COMPARISON: None TECHNIQUE: AP, lateral, and oblique views of each knee were obtained. FINDINGS: Right knee: There is no acute bony change. There is advanced tricompartmental osteoarthritis about the medial and patellofemoral joint space compartments with marked narrowing prominent hypertrophic change. There is moderate osteoarthritic change but the lateral joint space compartment. There is a mild varus deformity. There is no significant joint effusion. Left knee: There is advanced osteoarthritic change about the left knee with sclerosis and hypertrophic change but the medial joint space compartment with mild narrowing. There is advanced patellofemoral osteoarthritis. There is a suprapatellar joint effusion. IMPRESSION: ADVANCED OSTEOARTHRITIC CHANGE ABOUT EACH KNEE WITH SMALL LEFT-SIDED JOINT EFFUSION. NO ACUTE FINDINGS.
--- NOTE | 2018-03-26 15:55 | RAD ---
HISTORY: head injury, fall COMPARISONS: January 02, 2016 TECHNIQUE: Multiple contiguous axial CT scans were obtained of the head without intravenous contrast. FINDINGS: HEMORRHAGE/INFARCT: There is no hemorrhage or acute infarct. MASSES/SHIFT: There is no mass or shift. EXTRA-AXIAL SPACES: There is an arachnoid cyst of the left middle cranial fossa, stable. SULCI AND VENTRICLES: The sulci and ventricles are normal in size and position for the patient's stated age. CEREBRUM: There is hypoattenuation of the periventricular and subcortical white matter. This is stable. BRAINSTEM: There are no focal parenchymal abnormalities. CEREBELLUM: There are no focal parenchymal abnormalities. VESSELS: The vessels are grossly normal. PARANASAL SINUSES: The paranasal sinuses are clear. ORBITS: The orbits are unremarkable. BONES AND SOFT TISSUE: No bone or soft tissue abnormalities are noted. OTHER: None IMPRESSION: NO ACUTE INTRACRANIAL PATHOLOGY.
--- NOTE | 2018-03-26 15:59 | RAD ---
HISTORY: fall, back pain COMPARISONS: January 02, 2016 TECHNIQUE: Multiple contiguous axial CT scans were obtained of the cervical spine without intravenous contrast, with coronal and sagittal multiplanar reformations. FINDINGS: BRAIN: The visualized brain is unremarkable CENTRAL CANAL: Evaluation of the central canal is limited on CT technique; however, there is no obvious canalicular mass or epidural hemorrhage. ALIGNMENT: There is a scoliotic curvature of the spine. There is grade 1 anterolisthesis of C6 on C7. VERTEBRAL BODIES: There is multilevel anterolateral marginal osteophyte formation. JOINTS: There is uncovertebral and facet osteoarthritis. MUSCULATURE: Unremarkable INTERVERTEBRAL DISCS: There is diffuse loss of intervertebral disc height. AXIAL IMAGES: There is moderate diffuse multilevel neuroforaminal narrowing without osseous central canal stenosis. SOFT TISSUES: Again noted is a right thyroid mass measuring up to 4 cm. This is stable from the previous examination. OTHER: None. IMPRESSION: 1. DEGENERATIVE DISC DISEASE AND OSTEOARTHRITIS. 2. STABLE RIGHT THYROID MASS. 3. NO ACUTE OSSEOUS INJURY TO THE CERVICAL SPINE.
--- NOTE | 2018-03-26 16:04 | RAD ---
HISTORY: back pain, fall COMPARISONS: None TECHNIQUE: Multiple contiguous axial CT scans were obtained of the lumbar spine without intravenous contrast, with coronal and sagittal multiplanar reformations. FINDINGS: There is a transitional last lumbar type vertebral body which will be labeled S1 for the purposes of counting. SPINAL CANAL: Evaluation of the central canal is limited on CT technique; however, there is no obvious canalicular mass or epidural hemorrhage. ALIGNMENT: There is a mild scoliotic curvature of the spine. There is grade 1 retrolisthesis of L3 on L4. VERTEBRAL BODIES: There is diffuse osteopenia. There is multilevel anterolateral marginal osteophyte formation. There is partial lumbarization of the S1 vertebral body. JOINTS: There is diffuse facet osteoarthritis. MUSCULATURE: Unremarkable INTERVERTEBRAL DISCS: There is diffuse loss of intervertebral disc height throughout the spine. AXIAL IMAGES: T11-T12: There is no osseous neural foraminal narrowing or central canal stenosis. T12-L1: There is a calcified disc protrusion within the right neural foramen measuring 0.9 cm in depth. There is severe right neural foraminal narrowing. There is no osseous central canal stenosis. L1-L2: There is no osseous neural foraminal narrowing or central canal stenosis. L2-L3: There is moderate left neuroforaminal narrowing. There is no osseous central canal stenosis. There is a broad-based disc bulge. L3-L4: There is a broad-based disc bulge/rolled disc. There is bilateral facet hypertrophy. There is limited hypertrophy. There is marginal osteophyte formation at the neural foramina bilaterally. There is vacuum phenomenon consistent with a left lateral recess superior disc extrusion measuring 0.3 cm in depth. There is severe left and moderate right neuroforaminal narrowing. There is severe narrowing of central canal. L4-L5: There is a broad-based disc bulge with ligamentous and facet hypertrophy. There is severe left neuroforaminal narrowing. There is severe narrowing of the central canal. L5-S1: There is bilateral facet hypertrophy. There is marginal osteophyte formation at the neural foramina bilaterally. There is severe bilateral neuroforaminal narrowing. There is no osseous central canal stenosis. SOFT TISSUES: There is atherosclerosis of the aorta. There is diverticulosis of the colon. OTHER: None IMPRESSION: 1. SCOLIOSIS. 2. OSTEOPENIA. 3. DEGENERATIVE DISC DISEASE AND OSTEOARTHRITIS. 4. THERE IS SEVERE NARROWING OF THE CENTRAL CANAL AT L3-L4 AND L4-L5. 5. THERE IS MULTILEVEL NEUROFORAMINAL NARROWING DESCRIBED ABOVE. 6. THERE IS A RIGHT-SIDED DISC PROTRUSION AT T12-L1. 7. THERE IS A LEFT-SIDED SUPERIOR DISC EXTRUSION AT L3-L4. 8. NO ACUTE OSSEOUS INJURY TO THE LUMBAR SPINE..
[2018-03-26 16:20] VITALS: BP 122/63
== END 2018-03-26 16:19 | disposition home or self-care (01) ==
LOC: ED 14:29
DX: S09.90XA Unspecified injury of head, initial encounter (principal); W19.XXXA Unspecified fall, initial encounter; Y93.01 Activity, walking, marching and hiking; Y92.9 Unspecified place or not applicable; M17.0 Bilateral primary osteoarthritis of knee; M25.462 Effusion, left knee; M41.9 Scoliosis, unspecified; M85.88 Other specified disorders of bone density and structure, other site; M51.36 Other intervertebral disc degeneration, lumbar region; M47.816 Spondylosis without myelopathy or radiculopathy, lumbar region; M51.25 Other intervertebral disc displacement, thoracolumbar region; M50.323 Other cervical disc degeneration at C6-C7 level; M47.812 Spondylosis without myelopathy or radiculopathy, cervical region; J44.9 Chronic obstructive pulmonary disease, unspecified; Z99.81 Dependence on supplemental oxygen; E07.9 Disorder of thyroid, unspecified; F17.210 Nicotine dependence, cigarettes, uncomplicated; Z88.6 Allergy status to analgesic agent
CPT/HCPCS: 70450; 72125; 72131; 99282

== ENCOUNTER 2018-07-20 22:10 | Emergency (ER) | payer MEDICARE, MEDICAID ==
[2018-07-20] MEDS ORDERED: Ibuprofen TAB* 600 MG PO ONE (23:50)
--- NOTE | 2018-07-20 23:58 | ED ---
Lower Extremity - HPI Summary HPI Summary: Patient is a 78-year-old female with history of COPD and oxygen at baseline presenting to the ED with left knee pain and swelling. She states the knee swells with cold weather. She denies any trauma or injury. She denies any warmth to the knee. She remains ambulatory. She denies pain in the calf. Denies any known blood disorders. She has not tried any [id number] medications for relief and has not used any ice or heat to the area. She states she injured the knee approximate 13 years ago and they will intermittently swell and cause pain. - History of Current Complaint Chief Complaint: EDExtremityLower Stated Complaint: LT KNEE PAIN Time Seen by Provider: 07/20/18 22:27 Hx Obtained From: Patient Mechanism Of Injury: Unknown Onset of Pain: Days Onset/Duration: Days Severity Initially: Mild Severity Currently: Mild Pain Intensity: 2 Pain Scale Used: 0-10 Numeric Timing: Intermittent Location: Is Discrete @ - left knee Character Of Pain: Aching Associated Signs And Symptoms: Positive: Swelling Aggravating Factor(s): Standing, Ambulation Alleviating Factor(s): Rest Able to Bear Weight: Yes - Risk Factors Gout Risk Factors: Age Over 40 DVT Risk Factors: Negative Septic Arthritis Risk Factor: Negative - Allergies/Home Medications Allergies/Adverse Reactions: Allergies Allergy/AdvReac Type Severity Reaction Status Date / Time aspirin Allergy Abdominal Verified 11/07/17 21:43 Pain PMH/Surg Hx/FS Hx/Imm Hx Previously Healthy: Yes Endocrine/Hematology History: Denies: Hx Anticoagulant Therapy, Hx Diabetes, Hx Thyroid Disease Cardiovascular History: Reports: Hx Hypercholesterolemia Denies: Hx Hypertension, Hx Pacemaker/ICD Respiratory History: Reports: Hx Asthma, Hx Chronic Obstructive Pulmonary Disease (COPD) GI History: Reports: Hx Gastroesophageal Reflux Disease, Hx Hiatal Hernia History: Reports: Other Problems/Disorders - urinary incontience Denies: Hx Renal Disease Musculoskeletal History: Reports: Hx Rheumatoid Arthritis, Hx Osteoporosis Sensory History: Denies: Hx Hearing Aid Neurological History: Denies: Hx Dementia, Hx Seizures Psychiatric History: Reports: Hx Depression, Hx Schizophrenia Denies: Hx Panic Disorder, Hx Substance Abuse - Surgical History Surgery Procedure, Year, and Place: bilat ankle fractures - L 12 yrs ago; R 3 yrs ago - Immunization History Date of Tetanus Vaccine: unk Hx Pertussis Vaccination: No Immunizations Up to Date: Yes Infectious Disease History: No Infectious Disease History: Denies: Hx Hepatitis, Hx Human Immunodeficiency Virus (HIV), Traveled Outside the [place] in Last 30 Days - Family History Family History: Bone Marrow Cancer;. FHx reviewed and non contributory - Social History Occupation: Unemployed Lives: With Family Alcohol Use: None Hx Substance Use: No Substance Use Type: Reports: None Hx Tobacco Use: Yes Smoking Status (MU): Heavy Every Day Tobacco Smoker Type: Cigarettes Review of Systems Constitutional: Negative Negative: Fever, Chills, Fatigue, Skin Diaphoresis Negative: Palpitations, Chest Pain Negative: Shortness Of Breath, Cough Positive: Arthralgia, Myalgia Skin: Negative Neurological: Negative All Other Systems Reviewed And Are Negative: Yes Physical Exam Triage Information Reviewed: Yes Vital Signs On Initial Exam: Initial Vitals Temp Pulse Resp BP Pulse Ox 98.3 F 68 18 142/66 100 07/20/18 22:11 07/20/18 22:11 07/20/18 22:11 07/20/18 22:11 07/20/18 22:11 Vital Signs Reviewed: Yes Appearance: Positive: Well-Appearing, Well-Nourished Skin: Positive: Warm, Skin Color Reflects Adequate Perfusion Head/Face: Positive: Normal Head/Face Inspection Eyes: Positive: EOMI, AYANA, Conjunctiva Clear Respiratory/Lung Sounds: Positive: Decreased Breath Sounds Cardiovascular: Positive: Pulses are Symmetrical in both Upper and Lower Extremities. Negative: Leg Edema Left, Leg Edema Right Musculoskeletal: Positive: Pain @ - left knee - diffuse - no pain to the posterior knee Neurological: Positive: Speech Normal Psychiatric: Positive: Affect/Mood Appropriate AVPU Assessment: Alert Diagnostics - Vital Signs Vital Signs Temp Pulse Resp BP Pulse Ox 07/20/18 22:11 98.3 F 68 18 142/66 100 - Laboratory Lab Statement: Any lab studies that have been ordered have been reviewed, and results considered in the medical decision making process. Lower Extremity Course/Dx - Course Course Of Treatment: Patient is evaluated for left knee pain which was a gradual onset over the last few days with the cold weather. She states with cold weather her knee will swell and become painful. However, she remains ambulatory. She has not taken anything at home for medications for relief. She has not tried any ice or heat. Discussed with patient at length regarding follow-up to orthopedic physician if symptoms worsen, however due to no trauma, I do not feel an x-ray is necessary at this time. Patient remains ambulatory, no pain with flexion or extension. The knee is not erythematous or warm to the touch. It does not appear to be swollen compared to the contralateral knee. There is no calf tenderness. Patient is able to plantarflex and dorsiflex without pain to the knee. She also is denying any pain to the ipsilateral hip. She will be discharged home with encouragement of NSAIDs, ice and elevation. She is given 600 mg ibuprofen here in the ED. - Diagnoses Differential Diagnosis/HQI/PQRI: Positive: Infection, Sprain, Strain Provider Diagnoses: Knee pain Discharge - Sign-Out/Discharge Documenting (check all that apply): Patient Departure - Discharge Plan Condition: Stable Disposition: HOME Referrals: Danika Mehta MD [Medical Doctor] - Valentino Correia MD [Primary Care Provider] - Additional Instructions: Ibuprofen 600mg three times daily Elevate the leg - Billing Disposition and Condition Condition: STABLE Disposition: Home
[2018-07-21 07:21] VITALS: BP 123/49
== END 2018-07-21 07:20 | disposition home or self-care (01) ==
LOC: ED 22:10
DX: M25.562 Pain in left knee (principal); F17.210 Nicotine dependence, cigarettes, uncomplicated; Z88.6 Allergy status to analgesic agent
CPT/HCPCS: 99283; A9270-GY

== ENCOUNTER 2018-09-02 20:57 | Emergency (ER) | payer MEDICARE, BC, OTHER ==
--- NOTE | 2018-09-02 21:40 | ED ---
Complex/Multi-Sys Presentation - HPI Summary HPI Summary: Patient is a 78 y/o F presenting to ED via ambulance after being unable to stand up after sitting outside on a rock for thirty minutes. Patient states that she was smoking a cigarette at this time. She reports that she was unable to stand up until a lady found her. In the room, she states that she feels " much better". Patient can stand and ambulate without assistance, she states that she has never had similar previous episodes. EMS had reported that the patient had wanted to get checked out as she had been in the cold for an extended period of time. Patient does not normally require assistance with walking. No Hx of emphysema. Patient states that her breathing is "good". She lives at [facility]. On triage, pain is denied, nothing is noted to aggravate/ alleviate Sx. Home medications and allergies are reviewed. - History Of Current Complaint Chief Complaint: EDGeneral Time Seen by Provider: 09/02/18 21:23 Hx Obtained From: Patient Onset/Duration: Lasting Minutes - 30 minutes outside, Still Present Timing: Minutes - 30 minutes outside Severity Currently: None Location: Negative Aggravating Factor(s): nothing Alleviating Factor(s): nothing Associated Signs And Symptoms: Positive: Other - inability to stand, outside in cold for 30 minutes - Allergies/Home Medications Allergies/Adverse Reactions: Allergies Allergy/AdvReac Type Severity Reaction Status Date / Time aspirin Allergy Abdominal Verified 11/07/17 21:43 Pain PMH/Surg Hx/FS Hx/Imm Hx Endocrine/Hematology History: Denies: Hx Anticoagulant Therapy, Hx Diabetes, Hx Thyroid Disease Cardiovascular History: Reports: Hx Hypercholesterolemia Denies: Hx Hypertension, Hx Pacemaker/ICD Respiratory History: Reports: Hx Asthma, Hx Chronic Obstructive Pulmonary Disease (COPD) GI History: Reports: Hx Gastroesophageal Reflux Disease, Hx Hiatal Hernia History: Reports: Other Problems/Disorders - urinary incontience Denies: Hx Renal Disease Musculoskeletal History: Reports: Hx Rheumatoid Arthritis, Hx Osteoporosis Sensory History: Denies: Hx Hearing Aid Neurological History: Denies: Hx Dementia, Hx Seizures Psychiatric History: Reports: Hx Depression, Hx Schizophrenia Denies: Hx Panic Disorder, Hx Substance Abuse - Surgical History Surgery Procedure, Year, and Place: bilat ankle fractures - L 12 yrs ago; R 3 yrs ago - Immunization History Date of Tetanus Vaccine: unk Infectious Disease History: No Infectious Disease History: Denies: Hx Hepatitis, Hx Human Immunodeficiency Virus (HIV), Traveled Outside the [place] in Last 30 Days - Family History Known Family History: Positive: Other Family History: Bone Marrow Cancer; - Social History Alcohol Use: None Hx Substance Use: No Substance Use Type: Reports: None Hx Tobacco Use: Yes Smoking Status (MU): Heavy Every Day Tobacco Smoker Type: Cigarettes Review of Systems Positive: Other - outside in cold for 30 minutes. Negative: Fever Positive: Other - inability to stand, since resolved All Other Systems Reviewed And Are Negative: Yes Physical Exam - Summary Physical Exam Summary: VITAL SIGNS: Reviewed. GENERAL: Patient is a well-developed and nourished female who is lying comfortable in the stretcher. Patient is not in any acute respiratory distress. HEAD AND FACE: No signs of trauma. No ecchymosis, hematomas or skull depressions. No sinus tenderness. EYES: PERRLA, EOMI x 2, No injected conjunctiva, no nystagmus. EARS: Hearing grossly intact. Ear canals and tympanic membranes are within normal limits. MOUTH: Oropharynx within normal limits. NECK: Supple, trachea is midline, no adenopathy, no JVD, no carotid bruit, no c- spine tenderness, neck with full ROM. CHEST: Symmetric, no tenderness at palpation LUNGS: Clear to auscultation bilaterally. No wheezing or crackles. CVS: Regular rate and rhythm, S1 and S2 present, no murmurs or gallops appreciated. ABDOMEN: Soft, non-tender. No signs of distention. No rebound no guarding, and no masses palpated. Bowel sounds are normal. EXTREMITIES: FROM in all major joints, no edema, no cyanosis or clubbing. NEURO: Alert and oriented x 3. No acute neurological deficits. Speech is normal and follows commands. SKIN: Dry and warm Triage Information Reviewed: Yes Vital Signs On Initial Exam: Initial Vitals Temp Pulse Resp BP Pulse Ox 99 F 72 18 148/87 94 09/02/18 21:01 09/02/18 21:01 09/02/18 21:01 09/02/18 21:01 09/02/18 21:01 Vital Signs Reviewed: Yes Diagnostics - Vital Signs Vital Signs Temp Pulse Resp BP Pulse Ox 09/02/18 21:01 99 F 72 18 148/87 94 - Laboratory Lab Statement: Any lab studies that have been ordered have been reviewed, and results considered in the medical decision making process. Complex Multi-Symp Course/Dx Course Of Treatment: Patient is a 78 y/o F presenting to ED via ambulance after being unable to stand up after sitting outside on a rock for thirty minutes. Patient states that she was smoking a cigarette at this time. She reports that she was unable to stand up until a lady found her. In the room, she states that she feels "much better". Patient can stand and ambulate without assistance, she states that she has never had similar previous episodes. EMS had reported that the patient had wanted to get checked out as she had been in the cold for an extended period of time. Patient does not normally require assistance with walking. No Hx of emphysema. Patient states that her breathing is "good". She lives at [facility]. - Diagnoses Provider Diagnoses: Weakness Discharge - Sign-Out/Discharge Documenting (check all that apply): Patient Departure - discharge - Discharge Plan Condition: Stable Disposition: HOME Patient Education Materials: Weakness (ED) Referrals: Valentino Correia MD [Primary Care Provider] - 2 Days Additional Instructions: RETURN TO ED WITH ANY NEW OR WORSENING SYMPTOMS. FOLLOW UP WITH PRIMARY CARE PHYSICIAN WITHIN 2 DAYS. - Attestation Statements Document Initiated by Scribe: Yes
[2018-09-02 22:32] VITALS: BP 150/87
== END 2018-09-02 22:31 | disposition home or self-care (01) ==
LOC: ED 20:57
DX: R53.1 Weakness (principal); Z88.6 Allergy status to analgesic agent; F17.210 Nicotine dependence, cigarettes, uncomplicated
CPT/HCPCS: 99282

== ENCOUNTER 2018-12-10 07:30 | Inpatient (IN) | payer MEDICARE, BC, OTHER ==
--- NOTE | 2018-12-03 11:09 | HP ---
HISTORY AND PHYSICAL: DATE OF ADMISSION/SURGERY: 12/10/18 DATE OF OFFICE VISIT: 11/30/18 SURGEON: Danika Mehta MD* (dictated by ALEXY Bob) PROCEDURE: Left total knee arthroplasty. CHIEF COMPLAINT: Left knee pain. HISTORY OF PRESENT ILLNESS: Ms. Watson is a 78-year-old female with end- stage osteoarthritis of the left knee. She has failed conservative treatment and elected to proceed with a left total knee arthroplasty. PAST MEDICAL HISTORY: COPD, prior stroke, GERD, coronary artery disease, and asthma. PAST SURGICAL HISTORY: Right wrist surgery, bilateral ankle surgeries. MEDICATIONS: 1. Tramadol 50 mg every 6 hours as needed. 2. Ibuprofen 600 mg every 6 hours as needed. 3. Fosamax 70 mg weekly. 4. Zyprexa 15 mg a day. 5. Paxil 30 mg daily. 6. Nexium 20 mg a day. 7. Ditropan 5 mg a day. 8. Colace as needed. 9. Atorvastatin calcium is 40 mg a day. 10. Aspirin 81 mg a day. 11. Spiriva inhaler daily. 12. Calcium with vitamin D. ALLERGIES: No known drug allergies. FAMILY HISTORY: Diabetes, cancer, and COPD. SOCIAL HISTORY: She is a 78-year-old female. She lives in a jail, [place]. She smokes a pack a day and denies use of drugs or alcohol. REVIEW OF SYSTEMS: A complete 14-point review of systems was reviewed with the patient, positive for history of stroke and COPD. She denies history of DVT, hepatitis, HIV, or anesthesia problems. PHYSICAL EXAMINATION GENERAL: She is well developed, well nourished, in no acute distress. VITAL SIGNS: She stands 5 feet 3 inches tall, weighs 113 pounds. Her blood pressure is 150/64, heart rate is 80. HEENT: Normocephalic, atraumatic. NECK: Supple. No palpable lymph nodes. PULMONARY: Lungs are clear to auscultation bilaterally. CARDIO: Regular rate and rhythm. Strong S1, S2. ABDOMEN: Soft, nontender, nondistended. NEUROLOGIC: She is alert and oriented x3. MUSCULOSKELETAL: Left lower extremity: The skin is intact. There are no open wounds or abrasions. There is a moderate effusion in the left knee joint. Range of motion is 15 to 120 degrees of flexion. There is a 2+ dorsalis pedis pulse. She is able to dorsiflex and plantar flex and has intact sensation. ASSESSMENT AND PLAN: Ms. Watson is a 78-year-old female with end-stage osteoarthritis of the left knee. She has failed conservative treatment and elected to proceed with a left total knee arthroplasty. This surgery is scheduled for 12/10/[address] Mehta discussed the risks and benefits of the surgery at today's visit and all of her questions were answered. She will follow up with Dr. Mehta 2 weeks after the surgery. No TXA will be used in this patient because of her history of a prior stroke. ALEXY BOB [id number]/CPS #: [id number] MTDD
[~2018-12-10 07:30] MED LIST: Buffered Lidocaine 1% SYRIN* 1 ML/SYRINGE INTRADERM ONE; Lactated Ringers 1000 ML Bag* 1,000 ML IV SCH
--- OUTSIDE RECORDS SUMMARY | 2018-12-10 11:19 | XMS REPORT | Continuity of Care Document ---
:1940 External Reference #:[id number] Author Name DannyTheresa Care Team Providers Name Role Phone Vlaentino Correia MD Primary Care Physician Unavailable Payers Date Identification Numbers Payment Provider Subscriber Policy Number: [id number] Medicare Gloria [place] PayID: [id number] [address] [place] [address] Expires: 2018 Policy Number: [id number] [place] Gloria [place] PayID: [id number] [address] [place] [address] Expires: 2018 Policy Number: [id number] Medicare Gloria [place] PayID: [id number] [address] [place] [address] Expires: 2018 Policy Number: [id number] [facility] Damian [place] PayID: [id number] [address] [place] [address] Policy Number: [id number] Medicaid Gloria [place] Group Name: 1 1 [address] PayID: [id number] [place] [address] Advance Directives Description No Information Available Problems Date Description Provider Status Onset: 07/27/2018 Localized, primary osteoarthritis Danika Mehta M.D. Active Family History Date Family Member(s) Observation Comments General Breast Cancer General Chronic Obstructive Pulmonary Disease (COPD) General Diabetes Social History Type Date Description Comments Sex Unknown Occupation [employer] Tobacco Use Start: Unknown Current Cigarette Smoker 1 Pack Daily Tobacco Use Start: Unknown Never Smoked Cigars Tobacco Use Start: Unknown Never Smoked A Pipe Smokeless Tobacco Never Used Smokeless Tobacco ETOH Use Denies alcohol use Tobacco Use Start: Unknown Patient is a current smoker, smokes every day Smoking Status Reviewed: 10/12/18 Patient is a current smoker, smokes every day Exercise Type/Frequency Exercises sporadically Allergies, Adverse Reactions, Alerts Date Description Reaction Status Severity Comments 03/25/2013 Aspirin Active Medications Medication Date Status Form Strength Qnty SIG Indications Ordering Provider Tramadol HCL 07/27/ Active Tablets 50mg 30tabs 1 tablet by M17.12 Danika 2018 mouth every Tyson, 6 hours as M.D. needed pain Ibuprofen 08/22/ Active Tablets 600mg 60tabs 1 po q6h Jazmin Montoya 2013 ivonne Montilla M.D. Fosamax / Active Tablets 70mg 12tabs one tablet Unknown 0000 weekly Zyprexa / Active Tablets 15mg 1 tab po Unknown 0000 daily Paxil / Active Tablets 30mg 90tabs one q am Unknown 0000 Nexium / Active Capsules 20mg 90caps 1 po qd Unknown [address] Ditropan XL / Active Tablets ER 5mg 90tabs 1 po qd Unknown 0000 24HR Calcium 600+D / Active Tablets 600-400mg- 60tabs 1 po bid Unknown 0000 Unit Colace / Active Capsules 100mg 2 caps po Unknown 0000 qhs Amoxicillin / Active Tablets 875mg 20tabs 1 po bid Unknown 0000 Clindamycin / Active Capsules 300mg 4caps 2 tab tid Unknown HCL 0000 Genfiber / Active Powder 1 Tbsp Unknown Powder 0000 mixed c liquid daily Omeprazole / Active Capsules 40mg 1 by mouth Unknown 0000 DR every day Atorvastatin 00/ Active Tablets 40mg 1 by mouth Unknown Calcium 0000 every day Eq Aspirin / Active Tablets DR 81mg 1 by mouth Unknown Adult Low Dose 0000 every day Spiriva / Active Capsules 18mcg 1 unit Unknown Handihaler 0000 inhalation daily Oyster Shell / Active Unknown Calcium/D 0000 Medications Administered in Office Medication Date Status Form Strength Qnty SIG Indications Ordering Provider Depomedrol Administered Injection Danika 40MG 018 Justin Mehta Immunizations Description No Information Available Vital Signs Date Vital Result Comment 10/12/2018 1:29pm Height 63 inches 5'3" Weight 116.00 lb BP Systolic 114 mmHg BP Diastolic 58 mmHg Pain Level 0 BMI (Body Mass Index) 20.5 kg/m2 10/02/2018 3:25pm Height 63 inches 5'3" Weight 116.00 lb Heart Rate 78 /min Respiratory Rate 18 /min Body Temperature 94.1 F Pain Level 0 BMI (Body Mass Index) 20.5 kg/m2 09/07/2018 9:06am Height 63 inches 5'3" Weight 116.00 lb Respiratory Rate 18 /min Pain Level 0 BMI (Body Mass Index) 20.5 kg/m2 07/27/2018 9:49am Height 63 inches 5'3" Weight 116.00 lb Heart Rate 72 /min BP Systolic 132 mmHg BP Diastolic 88 mmHg Body Temperature 97.0 F Pain Level 10 BMI (Body Mass Index) 20.5 kg/m2 08/22/2013 12:08pm Heart Rate 80 /min BP Systolic Sitting 110 mmHg BP Diastolic Sitting 56 mmHg Respiratory Rate 16 /min Results Test Date Facility Test Result H/L Range Note Laboratory test 03/25/2013 [facility] Cytology Nongyn RUN DATE: 1 [address] 03/26/ <[place] [address] NOTE> [phone] 1 RUN DATE: 03/26/13 [facility] LAB LIVE PAGE 1 RUN TIME: 1848 [address] [place], [place] [address] Specimen Inquiry Name: GLORIA [place] : [address]: Drew [place] MD Acct: [id number] Unit: [id number] AGE: 73 Location: [facility] Re03/25/13 SEX: F Status: REG REF SPEC: [id number] MARIN: 03/25/13-[address] [facility] [address]: Drew [place] MD REQ: [id number] RECD: 03/25/13 STATUS: SOUT _ ORDERED: FN ASP SUPERFIC FINAL DIAGNOSIS NECK, RIGHT SIDE, fine needle aspirate: Primarily small lymphocytes and few larger lymphocytes are seen. The histologic differential diagnosis includes a benign lymph node and a low-grade lymphoma. If a low grade lymphoma is a clinical consideration, recommend rebiopsy for flow cytometry. 1. NECK - RIGHT SIDE OF NECK, FINE NEEDLE ASPIRATION CLINICAL HISTORY Enlarged lymph nodes. GROSS DESCRIPTION 2 Alcohol fixed slide(s) received from clinician with moderate material. Signed (signature on file) Ann Mckenzie MD 1848 END OF REPORT * ML=Testing performed at Main Lab DEPARTMENT OF PATHOLOGY, [address] [place] [address] Royce An M.D. Director [facility] Permit #[id number] Procedures Date Code Description Status 07/27/2018 72782 Inject/Drain Joint/Bursa Major W/O US Completed 09/15/2014 24388 ECHO Transthorasic Realtime 2D W Doppler & Color Flow Hosp Completed 08/26/2013 60247 EEG Recording Awake & Drowsy Completed 03/25/2013 95246 Fibroptic Laryngoscopy Completed 03/25/2013 64100 Fine Needle Aspiration; W/O Imaging Guidance Completed 12/14/2012 92984 Rad Exam; Foot Comp Completed 11/14/2012 45929 FX Metatarsal Care Completed 04/13/2012 92544 EKG, Interpretation Only Completed Encounters Type Date Location Provider Dx Diagnosis Office Visit 10/12/2018 Orthopedic Danika Mehta, M25.572 Pain in left 1:00p Services Of Carolyn Anderson ankle and joints of left foot 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 Bacterial Hospitalists Infection Unspec 496 COPD Airway Obstruction Chronic Not Class Elsewhere 295.90 Schizophrenia Unspec 305.1 Tobacco Use Disorder Office Visit 10/17/2014 1:56p Pulmonology And Latanya 496 COPD Airway Sleep Services Of MD Gustavo Obstruction Supervisor Special Education Chronic Not Class Elsewhere 780.60 Fever, Unspecified Office Visit 10/16/2014 2:03p [facility] 482.9 Pneumonia Due Assoc,rogelio Ricardo, APARTMENT LEASING MANAGER To Bacterial Hospitalists Infection Unspec 496 COPD Airway Obstruction Chronic Not Class Elsewhere 295.90 Schizophrenia Unspec 305.1 Tobacco Use Disorder Office Visit 10/16/2014 1:49p Pulmonology And Latanya 496 COPD Airway Sleep Services Of MD Gustavo Obstruction [facility] Chronic Not Class Elsewhere 780.2 Syncope & Collapse 780.60 Fever, Unspecified Office Visit 10/15/2014 2:02p [facility] Geovanny Conrad 482.9 Pneumonia Due To Assoc,rogelio Torres, Bacterial Hospitalists M.Angy Infection Unspec 496 COPD Airway Obstruction Chronic Not Class Elsewhere 295.90 Schizophrenia Unspec 305.1 Tobacco Use Disorder Office Visit 10/14/2014 [facility] 482.9 Pneumonia Due 2:02p Assrogelio jj II, M.D. To Bacterial Hospitalists Infection Unspec 496 COPD Airway Obstruction Chronic Not Class Elsewhere 295.90 Schizophrenia Unspec 305.1 Tobacco Use Disorder Office Visit 09/15/2014 11:36a [facility] 435.9 TIA Ischemia Assocrogelio M.D. Cerebral Hospitalists Transient Unspec 496 COPD Airway Obstruction Chronic Not Class Elsewhere 530.81 Esophageal Reflux 295.90 Schizophrenia Unspec Office Visit 09/15/2014 [facility] Geovanny Corcoran, 780.2 Syncope & 11:23a Services Of [facility] MJustine Collapse [facility] 435.9 TIA Ischemia 11:35a Assrogelio jj II, M.D. Cerebral Hospitalists Transient Unspec 295.90 Schizophrenia Unspec 530.81 Esophageal Reflux 496 COPD Airway Obstruction Chronic Not Class Elsewhere Office Visit 08/22/2013 12:00p [facility] Montoya 780.39 Convulsions Other Neurologic Justin Montilla Services Of [facility] Office Visit 03/25/2013 10:15a ENT Services Of Drew 784.2 Swelling In Head C.M.A. AT Justin [place] & Neck [place] 785.6 Lymph Nodes Enlargement Plan of Treatment Future Appointment(s):12/10/2018 7:30 am - ALEXY [place] at [facility]12/10/2018 7:30 am - Danika Mehta M.D. at [facility]11/30/2018 10:00 am - Danika Mehta M.D. at [facility]10/12/2018 - Danika Mehta M.D.M25.572 Pain in left ankle and joints of left footM19.172 Post-traumatic osteoarthritis, left ankle and footM25.562 Pain in left kneeM25.462 Effusion, left kneeM17.12 Unilateral primary osteoarthritis, left kneeFollow up:Follow up: 7-10 days before surgery
--- OUTSIDE RECORDS SUMMARY | 2018-12-10 11:19 | XMS REPORT | Continuity of Care Document ---
:1940 External Reference #:[id number] Author Name Jailene Torres Care Team Providers Name Role Phone Valentino Correia MD Primary Care Physician Unavailable Payers Date Identification Numbers Payment Provider Subscriber Policy Number: [id number] Medicare Gloria [place] PayID: [id number] [address] [place] [address] Expires: 2018 Policy Number: [id number] [place] Gloria [place] PayID: [id number] [address] [place] [address] Expires: 2018 Policy Number: [id number] Medicare Gloria [place] PayID: [id number] [address] [place] [address] Expires: 2018 Policy Number: [id number] [facility] Damian [place] PayID: [id number] [address] [place] [address] Policy Number: [id number] Medicaid Gloria [place] Group Name: 1 1 [address] PayID: [id number] [place] [address] Advance Directives Description No Information Available Problems Active Problems Provider Date Localized, primary osteoarthritis Danika Mehta M.D. Onset: 07/27/2018 Family History Date Family Member(s) Observation Comments [...] smoker, smokes every day Smoking Status Reviewed: 11/30/18 Patient is a current smoker, smokes every day Exercise Type/Frequency Exercises sporadically Allergies, Adverse Reactions, Alerts Active Allergies Reaction Severity Comments Date Aspirin 03/25/2013 Medications Active Medications SIG Qnty Indications Ordering Date Provider Tramadol HCL 1 tablet by mouth 30tabs M17.12 Danika Mehta 07/27/2018 50mg every 6 hours as M.D. Tablets needed pain Ibuprofen 1 po q6h prn 60tabs Jazmin Montoya 08/22/2013 600mg Tablets Justin Montilla Oyster Shell Unknown Calcium/D Spiriva Handihaler 1 unit inhalation Unknown daily 18mcg Capsules Eq Aspirin Adult Low 1 by mouth every Unknown Dose day 81mg Tablets DR Atorvastatin Calcium 1 by mouth every Unknown day 40mg Tablets Omeprazole 1 by mouth every Unknown 40mg day Capsules Genfiber Powder 1 Tbsp mixed c Unknown Powder liquid daily Clindamycin HCL 2 tab tid 4caps Unknown 300mg Capsules Amoxicillin 1 po bid 20tabs Unknown 875mg Tablets Colace 2 caps po qhs Unknown 100mg Capsules Calcium 600+D 1 po bid 60tabs Unknown [id number] Tablets Ditropan XL 1 po qd 90tabs Unknown 5mg Tablets ER 24HR Nexium 1 po qd 90caps Unknown 20mg Capsules DR Paxil one q am 90tabs Unknown 30mg Tablets Zyprexa 1 tab po daily Unknown 15mg Tablets Fosamax one tablet weekly 12tabs Unknown 70mg Tablets Medications Administered in Office Medication SIG Qnty Indications Ordering Provider Date Depomedrol 40MG Danika Mehta M.D. 07/27/2018 Injection Immunizations Description No Information Available Vital Signs Date Vital Result Comment 11/30/2018 4:03pm Height 63 inches 5'3" Weight 113.25 lb Heart Rate 80 /min BP Systolic 150 mmHg BP Diastolic 64 mmHg Respiratory Rate 18 /min Pain Level 0 BMI (Body Mass Index) 20.1 kg/m2 10/12/2018 1:29pm Height 63 inches 5'3" Weight [...] Date Facility Test Result H/L Range Note Inr/Protime 11/30/2018 [facility] Inr 0.90 N 0.77-1.[address] [place] [address] [phone] Laboratory test 11/30/2018 [facility] Partial 33.7 seconds N 26.0-36.[address] [place] [address] PTT [phone] Type & Screen 11/30/2018 [facility] Patient Blood O Positive [address] [place] [address] [phone] Antibody Screen NEGATIVE Urinalysis Profile 11/30/2018 [facility] Urine Color Yellow [address] [place] [address] [phone] Urine Appearance Clear Urine Specific [place] 1.009 Low 1.010-1.030 Urine pH 7.0 N 5-9 Urine Urobilinogen Negative Negative Urine Ketones Negative Negative Urine Protein Negative Negative Urine Leukocytes Negative Negative Urine Blood Negative Negative Urine Nitrite Negative Negative Urine Bilirubin Negative Negative Urine Glucose Negative Negative Laboratory test 03/25/2013 [facility] Cytology Nongyn RUN DATE: [address] 03/26/ <[place] [address] NOTE> [phone] 1 PAIN IN LEFT KNEE, EFFUSION, LEFT KNEE, UNILATERAL 2 AA 12/10 3 RUN DATE: 03/26/13 [facility] LAB LIVE PAGE 1 RUN TIME: [address] [place] [address] Specimen Inquiry Name: GLORIA [place] : [address]: Drew Lorenzo MD Acct: [id number] Unit: [id number] AGE: 73 Location: [facility] Re03/25/13 SEX: F Status: REG REF SPEC: [id number] MARIN: 03/25/13-[address]: Drew [place] MD REQ: [id number] RECD: 03/25/13 STATUS: SOUT _ ORDERED: FN [...] performed at Main Lab DEPARTMENT OF PATHOLOGY, [address] [place] [address] Royce An M.D. Director [facility] Permit #[id number] Procedures Date Code Description Status 07/27/2018 98504 Inject/Drain Joint/Bursa Major W/O US Completed 09/15/2014 02959 ECHO Transthorasic Realtime 2D W Doppler & Color Flow Hosp Completed 08/26/2013 78986 EEG Recording Awake & Drowsy Completed 03/25/2013 97807 Fibroptic Laryngoscopy Completed 03/25/2013 50231 Fine Needle Aspiration; W/O Imaging Guidance Completed 12/14/2012 13113 Rad Exam; Foot Comp Completed 11/14/2012 28175 FX Metatarsal Care Completed 04/13/2012 27824 EKG, Interpretation Only Completed Encounters Type Date [...] Varus deformity, 3:30p Services Of not elsewhere CJosepMAlice classified, left ankle M25.572 Pain in left ankle and joints of left foot 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 M.D. 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 482.9 Pneumonia Due To Assoc,pc Karan, N.P. Bacterial Hospitalists Infection Unspec 496 COPD Airway Obstruction Chronic Not Class Elsewhere 295.90 Schizophrenia Unspec 305.1 Tobacco Use Disorder Office Visit 10/17/2014 1:56p Pulmonology And Latanya 496 COPD Airway Sleep Services Of MD Gustavo Obstruction It Support Manager Chronic Not Class Elsewhere 780.60 Fever, Unspecified Office Visit 10/16/2014 2:03p [facility] Emily 482.9 Pneumonia Due Assoc,rogelio Ricardo, PROOF OPERATOR To Bacterial Hospitalists Infection Unspec 496 COPD Airway Obstruction Chronic Not Class Elsewhere 295.90 Schizophrenia Unspec 305.1 Tobacco Use Disorder Office Visit 10/16/2014 1:49p Pulmonology And Latanya 496 COPD Airway Sleep Services Of MD Gustavo Obstruction It Support Manager Chronic Not Class Elsewhere 780.2 Syncope & Collapse 780.60 Fever, Unspecified Office Visit 10/15/2014 2:02p [facility] Geovanny Conrad 482.9 Pneumonia Due To Assoc,rogelio Torres Bacterial Hospitalists MJustine Infection Unspec 496 COPD Airway Obstruction Chronic Not Class Elsewhere 295.90 Schizophrenia Unspec 305.1 Tobacco Use Disorder Office Visit 10/14/2014 [facility] Joseluis Penn 482.9 Pneumonia Due 2:02p Assoc,rogelio VALENCIA M.D. To Bacterial Hospitalists Infection Unspec 496 COPD Airway Obstruction Chronic Not Class Elsewhere 295.90 Schizophrenia Unspec 305.1 Tobacco Use Disorder Office Visit 09/15/2014 11:36a [facility] Al 435.9 TIA Ischemia Assoc,rogelio Arteaga M.D. Cerebral Hospitalists Transient Unspec 496 COPD Airway Obstruction Chronic Not Class Elsewhere 530.81 Esophageal Reflux 295.90 Schizophrenia Unspec Office Visit 09/15/2014 [facility] Geovanny Corcoran, 780.2 Syncope & 11:23a Services Of [facility] Justin Collapse Office Visit 09/14/2014 [place] Alda Penn 435.9 TIA Ischemia 11:35a rogelio Mejia II, M.D. Cerebral Hospitalists Transient Unspec 295.90 Schizophrenia Unspec 530.81 Esophageal Reflux 496 COPD Airway Obstruction Chronic Not Class Elsewhere Office Visit 08/22/2013 12:00p [place] Jazmin Montoya 780.39 Convulsions Other Neurologic Justin Montilla Services Of [facility] Office Visit 03/25/2013 10:15a ENT Services Of [facility] 784.2 Swelling In Head C.M.A. AT Justin Lorenzo & Neck [place] 785.6 Lymph Nodes Enlargement Plan of Treatment Future Appointment(s):12/24/2018 2:15 pm - Danika Mehta M.D. at [facility]12/10/2018 7:30 am - ALEXY [place] at [facility]12/10/2018 7:30 am - Danika Mehta M.D. at [facility]11/30/2018 - Danika Mehta M.D.M25.562 Pain in left kneeFollow up:Follow up: 2 weeks after dfsjdlhK88.462 Effusion, left kneeM17.12 Unilateral primary osteoarthritis, left kneeM21.172 Varus deformity, not elsewhere classified, left ankle
[2018-12-10] MEDS ORDERED: celeCOXIB CAP* 100 MG ONE (11:41)
[2018-12-10] MEDS ORDERED: Gabapentin CAP(*) 300 MG ONE ×2 (11:41→11:46)
[2018-12-10] MEDS ORDERED: Acetaminophen TAB* 325 MG ONE (11:41)
[2018-12-10] MEDS ORDERED: Dexamethasone IV* 4 MG/ML 1 ML (4 MG) ONE (11:41)
[2018-12-10] MEDS ORDERED: Famotidine TAB* 20 MG ONE (11:42)
[2018-12-10] MEDS ORDERED: ceFAZolin 2 GM PREMIX in ORs 2 GM/50 ML BAG IVPB ONE (11:42)
[2018-12-10] MEDS: Dexamethasone IV* 4 MG/ML 1 ML (4 MG) IV SLOW PU ONE ×2 (12:21→12:23)
[2018-12-10] MEDS: Acetaminophen TAB* 325 MG PO ONE ×2 (12:21→12:23)
[2018-12-10] MEDS: Famotidine TAB* 20 MG PO ONE ×2 (12:22→12:23)
[2018-12-10] MEDS: Gabapentin CAP(*) 300 MG PO ONE ×2 (12:22→12:23)
[2018-12-10] MEDS: celeCOXIB CAP* 200 MG PO ONE (12:22)
[2018-12-10] MEDS ORDERED: Midazolam* 1 MG/ML 2 ML VIAL (2 MG) ONE (13:31)
[2018-12-10] MEDS ORDERED: fentaNYL* 50 MCG/ML 2 ML VIAL (100 MCG VIAL) ONE (13:31)
[2018-12-10] MEDS ORDERED: Propofol* 10 MG/ML 20 ML BTL ONE (13:32)
[2018-12-10] MEDS ORDERED: Levalbuterol 0.63MG/3ML NEB* UNIT OF USE INH ONE ×2 (15:35)
[2018-12-10] MEDS ORDERED: ROPIVACAINE 5 MG/ML 30 ML BTL (0.5%) ONE (15:58)
[2018-12-10] MEDS ORDERED: Naloxone* 0.4 MG/ML 1 ML VIAL IV PRN (17:23)
[2018-12-10] MEDS ORDERED: Acetaminophen TAB* 325 MG PO PRN ×2 (17:23→18:31)
[2018-12-10] MEDS ORDERED: DiMENhydriNATE IV* 50 MG/ML VIAL IV PUSH PRN (17:23)
[2018-12-10] MEDS ORDERED: oxyCODONE/Acetamin 5/325 MG* TAB PO PRN ×3 (17:23→18:31)
[2018-12-10] MEDS ORDERED: fentaNYL* 50 MCG/ML 2 ML VIAL (100 MCG VIAL) IV PRN (17:23)
[2018-12-10] MEDS ORDERED: HYDROmorphone INJ1* 1 MG/ML SYRINGE IV PRN (17:23)
[2018-12-10] MEDS ORDERED: Ondansetron INJ* 2 MG/ML VIAL IV PRN ×2 (17:23→18:31)
--- NOTE | 2018-12-10 18:00 | OP ---
Operative Report - Blank - Operative Report Date of Operation: 12/10/18 Note: DAWN JENKINS 1940 Date of Surgery: 12/10/18 Danika Mehta MD Tool And Die Manager: Chanel TRACEY did help throughout the procedure with preparation of the knee, wound retraction, manipulation of the knee, and wound closure. Anesthesiologist: Houston Zhao MD Anesthesia Type: Spinal Preoperative Diagnosis: Left severe degenerative osteoarthritis of the knee Postoperative Diagnosis: As above Procedure Performed: Left Total Knee Arthroplasty Tourniquet time: 47 minutes Complications: None Specimen: Bone and cartilage from the left knee joint sent to pathology. Hardware Used: Cemented Bruner and Nephew total knee hardware was used - For the femur a size 5 narrow left legion posterior stabilized femoral component, for the tibia a size 3 left tk II tibial baseplate, for the insert a size 9mm 3 -4 posterior stabilized articular polyethylene insert, and for the patella a size 32 3-peg all poly patella. Brief History/Indication: DAWN JENKINS was known in clinic and had a history of severe left knee pain and swelling. She failed conservative treatment with anti-inflammatories, pain pills, intra-articular injections and physical therapy. She elected to undergo left total knee arthroplasty due to continued pain and decreased quality of life. Radiographs showed severe end stage osteoarthritis of the knee with bone on bone contact. Informed consent was obtained from the patient. She understood the risks of surgery included but were not limited to: bleeding, infection, damage to nearby structures, intraoperative fracture, nerve palsy, failure of the hardware, early loosening, knee stiffness or loss of motion, anesthesia complications, stroke, heart attack , blood clot and . She wished to proceed. The patient has a chronic varus deformity of the ankle, she understood she could have complications after realignment and wished to proceed. Intra-Operative Findings: Intraoperatively the patient was noted to have severe loss of cartilage in all 3 compartments of the knee. Description of the Procedure: DAWN JENKINS was identified in the preanesthesia unit. Her left knee was marked as the correct operative side. Informed consent was signed and placed in the chart. The patient was taken to the operating room and placed under anesthesia without complication. A mejia catheter was placed. A tourniquet was placed on the left thigh. The left lower extremity was prepped and draped in the usual sterile fashion. Preoperative time-out was made to correctly identify the patient, side and site. Appropriate intraoperative antibiotics were given within one hour of incision. Tourniquet was inflated. A midline incision was made and carried sharply down to the extensor mechanism. A new 10 blade was used to make a standard medial parapatellar arthrotomy. The patella was subluxed laterally. Electrocautery was used to dissect soft tissue off the superomedial tibia to the midsagittal plane. The knee was flexed up. The anterior horn of the lateral meniscus and the ACL were sharply incised. A drill was used to enter the distal femur. The intramedullary distal femoral cutting guide was pinned on the distal femur. The oscillating saw was used to make the distal femoral cut. The external rotation guide was pinned on the distal femur and the distal femur was sized to a size 5. The size 5 multi-cutting jig was pinned on the distal femur. The oscillating saw was used to make the appropriate 4 chamfer cuts. Next the PCL was completely released. The extramedullary tibial cutting guide was pinned on the proximal tibia and the oscillating saw was used to make the proximal tibial cut perpendicular to the mechanical axis of the tibia. The bone was carefully removed. The knee was brought out into full extension. The spacer block was placed and had excellent fit with the knee in full extension. The medial and lateral ligaments were well balanced. The flexion and extension gaps were well balanced. The knee was flexed up. Lamina postdoctoral fellow was placed both medially and laterally. Any remaining meniscus was removed with electrocautery. Curved osteotome was used to remove any posterior osteophytes. The tibial tray and drop mimi were placed and confirmed a satisfactory tibial cut. The size 5 left narrow femoral trial was impacted onto the distal femur. This trial had excellent fit and stability. The box for the posterior stabilized implant was prepared using a box cut osteotome and a reamer. Next a tibial tray trial and 9 mm insert trial was placed. The knee was taken through a range of motion and had full extension to 130 degrees of flexion. Patellofemoral tracking was satisfactory. The patella was inverted and sized to a size 32. Three peg holes were drilled through the size 32 drill guide. The trial patella was placed and the knee was taken through a range of motion. There was satisfactory patellofemoral tracking. All trials were removed. The tibia was subluxed anteriorly and sized to a size 3. The proximal tibial was prepared with a size 3 keel punch. All bony cut surfaces were irrigated with sterile saline and dried. Final implants were cemented into place starting with the tibia, followed by the femur, and last the patella. A 9 mm insert trial was placed and the knee was brought into full extension. Tourniquet was turned down and the knee was copiously irrigated with sterile saline. Electrocautery was used to obtain meticulous hemostasis. Once the cement had fully cured, the insert trial was removed. Any excess cement was removed from around the hardware and capsule. Final insert chosen was a 9 mm posterior stabilized Tk II articular insert size 3-4. Stability of the insert was checked and noted to be stable. The extensor mechanism was closed using number 1 vicryls. The rest of the incision was closed in a layered fashion using 0 and 2-0 vicryls. The skin was closed using 3-0 nylon suture. Sterile xeroform, 4x4s and webril were used to cover the incision. Rajat wrap and cold pack were used to cover the dressings. The patients anesthesia was reversed without difficulty. She was taken to the PACU in stable condition. Intended weight-bearing will be as tolerated.
[2018-12-10] MEDS ORDERED: oxyCODONE TAB* 5 MG TAB PO PRN (18:31)
[2018-12-10] MEDS ORDERED: Ondansetron ODT TAB* 4 MG PO PRN (18:31)
[2018-12-10] MEDS ORDERED: Cyclobenzaprine TAB* 10 MG PO PRN (18:31)
[2018-12-10] MEDS ORDERED: Magnesium Hydroxide LIQ* 30 ML UDC PO PRN (18:31)
[2018-12-10] MEDS ORDERED: Morphine INJ* 2 MG/ML 1 ML SYRINGE (TWO MG - NEW SYRINGE VERSION) IV PRN (18:31)
[2018-12-10] MEDS ORDERED: diPHENhydraMINE PO* 25 MG PO PRN (18:31)
[2018-12-10] MEDS ORDERED: diPHENhydraMINE IV* 50 MG/ML 1 ml VIAL (BENADRYL) IV PRN (18:31)
[2018-12-10] MEDS ORDERED: Nicotine Lozenge* 4 MG LOZENGE MT PRN (18:35)
[2018-12-10] MEDS ORDERED: Docusate CAP* 100 MG PO PRN (18:35)
[2018-12-10] MEDS ORDERED: Lactated Ringers 1000 ML Bag* 1,000 ML IV SCH (19:00)
[2018-12-10] MEDS: Oxybutynin TAB* 5 MG PO SCH (21:58)
[2018-12-10] MEDS: Magnesium Hydroxide LIQ* 30 ML UDC PO SCH (21:58)
[2018-12-10] MEDS: Docusate CAP* 100 MG PO SCH (21:58)
[2018-12-10] MEDS: Nicotine Patch Removal NOTE FOLLOW UP SCH (21:59)
--- NOTE | 2018-12-10 22:13 | CONS ---
CC: Dr. Valentino Correia * CONSULTATION REPORT: DATE OF CONSULT: 12/10/18 PRIMARY CARE PROVIDER: Dr. Valentino Correia. REQUESTING PHYSICIAN IN CONSULT: Dr. Danika Mehta. ATTENDING PHYSICIAN: Dr. Jalyn Wallace (dictated by Kellie Archuleta, ALEX). REASON FOR CONSULT: Co-medical management. HISTORY OF PRESENT ILLNESS/HOSPITAL COURSE: I will refer you to Dr. Mehta's history and physical dictated on 12/03/18, but in short, Mrs. Watson is a 78 - year-old female with a past medical history significant for TIA; COPD, on 4 L nasal cannula; GERD; schizophrenia; who presented [place] [facility] [place] for an elective right total knee replacement. PAST MEDICAL HISTORY: 1. TIA, 2014. 2. COPD, oxygen dependent, 4 L nasal cannula at all times. 3. Lemus esophagus. 4. Osteoporosis. 5. Schizophrenia. 6. Tobacco abuse. 7. Urinary incontinence. PAST SURGICAL HISTORY: Lumpectomy. HOME MEDICATIONS: 1. Ibuprofen 600 mg p.o. q.6 hours p.r.n. 2. Aspirin 81 mg p.o. at bedtime. 3. Tramadol 50 mg p.o. q.6 hours p.r.n. 4. Fosamax 70 mg p.o. weekly. 5. Spiriva 1 cap p.o. q.a.m. 6. Paxil 30 mg p.o. q.a.m. 7. Oxybutynin 5 mg p.o. t.i.d. 8. Omeprazole 40 mg p.o. q.a.m. 9. Zyprexa 15 mg p.o. q.p.m. 10. Nicotine lozenges, 1 lozenge p.o. q.2 hours p.r.n. 11. Colace 200 mg p.o. at bedtime. 12. Calcium carbonate/vitamin D2 one tab p.o. b.i.d. 13. Lipitor 40 mg p.o. at 1500. ALLERGIES: ASPIRIN only if not enteric coated. FAMILY HISTORY: Father lived into his 90s and of prostate cancer. Mother lived into her 80s and passed with complications of smoking and COPD. Older brother and sister have diabetes. Younger brother and sister are healthy. SOCIAL HISTORY: The patient resides at [facility]. The patient has been smoking since age 14. The patient denies alcohol use. The patient denies drug use. The patient's surrogate decision maker will be her sister, Jess Crawford, or [phone], in the event she cannot make decisions for herself. REVIEW OF SYSTEMS: A 14-point of review of systems was completed and all were negative. PHYSICAL EXAM: General: Mrs. Watson is a 78-year-old female who is lying in bed in short-stay surgical. The patient appears to be in no acute distress. She appears stated age. Vital Signs: Temp 97.4, HR 59, RR 18, O2 saturation 98% on 4 L, BP 143/72. HEENT: EOMs intact. PERRLA. Oral mucosa is moist without lesions. Posterior pharynx is clear. Neck: Full range of motion, no lymphadenopathy. Respiratory: Symmetrical chest expansion. No accessory muscle use. Lungs are clear to auscultation. Good aeration. No rhonchi, wheezes, or rales. Cardiac: S1, S2 present. Regular rate and rhythm. No murmurs, rubs, or gallops. Extremities: Skin is warm and smooth bilaterally. No edema. No clubbing or cyanosis. Pedal pulses are 2+ bilaterally. Musculoskeletal: Full range of motion. No pain or deformity. Currently, no pain. The patient reports the pain in right knee as 0/10. Abdomen: Soft, nontender to palpation. Bowel sounds are normoactive throughout. Neuro: The patient is awake, alert, and oriented x4. Motor strength is 5/5 in upper and lower extremities. Skin: Grossly intact without lesions. Dressing to right knee is clean, dry, and intact. ASSESSMENT AND PLAN: Mrs. Watson is a 78-year-old female with a past medical history significant for transient ischemic attack in 2015; chronic obstructive pulmonary disease, on 4 L nasal cannula; Lemus esophagus; schizophrenia; who presented [place] [facility] [place] an elective right total knee replacement. 1. Right total knee replacement. We will defer this to the ortho team. They have ordered DVT prophylaxis, pain medications, bowel regimen. 2. History of transient ischemic attack in 2015: The patient was placed on aspirin at that time. I would resume aspirin as soon as possible. 3. Lemus esophagus/gastroesophageal reflux disease: I will continue the patient's home PPI. 4. Schizophrenia: The patient's brother and sister at bedside are unsure if this is a correct diagnosis, but they report as long as she is on her medications she does not have odd behavior. The patient has been residing in alf facilities since 1989. I would continue the patient's home medications as the same while she is inpatient. 5. Tobacco use: The patient's sister and the patient request that nicotine replacement be ordered in the form of a patch, which I have done. 6. Urinary incontinence: The patient has a history of urinary incontinence and is on medication for this. I would recommend continuing her medications, especially once her Butler is removed. The patient currently has a Butler. Discussed that it will probably be removed on postop day 1. Her family will be bringing her Depends from home as she prefers them. 7. FEN: Fluids have been ordered by the ortho team. Diet has also been ordered by the ortho team. 8. Code status: The patient is a full code. 9. DVT prophylaxis: As mentioned above, DVT prophylaxis has been ordered by the ortho team in the form of apixaban. TIME SPENT: Approximately 45 minutes was spent on this consultation, greater than half the time was spent with the patient and her siblings obtaining my history and performing physical exam and reviewing my plan of care. This case has been reviewed with my attending, Dr. Wallace, who agrees with my plan of care. Thank you very much for allowing us to participate in this patient's care. Reviewed by KELLIE ARCHULETA NP 12/11/18 @ [id number]/[facility] #: [id number] CROW
[2018-12-11] MEDS: traMADol TAB* 50 MG PO PRN ×2 (00:40→14:51)
[2018-12-11] MEDS: ceFAZolin 1 GM ADVAN(*) 1 GM in NS 0.9% 50 ML* 50 ML IVPB SCH ×3 (00:40→18:09)
[2018-12-11 05:53] LABS: Hematocrit 30 % (33-41); Hemoglobin 9.5 g/dL (12.0-16.0); Mean Platelet Volume 8.9 fL (7.4-10.4); Platelet Count 139 10^3/uL (150-450)
[2018-12-11 06:14] LABS: BUN/Creatinine Ratio 31.6 (8-20); Blood Urea Nitrogen 18 mg/dL (6-24); CO2 Carbon Dioxide 37 mmol/L (22-32); Calcium 8.4 mg/dL (8.6-10.3); Chloride 102 mmol/L (101-111); EGFR African American 124.4 (>60); EGFR Non-African American 102.8 (>60); Glucose 108 mg/dL (70-100); Potassium 4.2 mmol/L (3.5-5.0); Sodium 139 mmol/L (135-145)
[2018-12-11] MEDS: celeCOXIB CAP* 200 MG PO ONE (07:36)
[2018-12-11] MEDS: PARoxetine HCL TAB* 10 MG PO SCH (08:56)
[2018-12-11] MEDS: Magnesium Hydroxide LIQ* 30 ML UDC PO SCH ×2 (08:56→19:56)
[2018-12-11] MEDS: Tiotropium CAP.INH* CAP.INH/18 MCG (USE ORDER SET !) INH SCH (08:56)
[2018-12-11] MEDS: Apixaban* 2.5 MG TAB PO SCH ×2 (08:57→19:53)
[2018-12-11] MEDS: Docusate CAP* 100 MG PO SCH ×2 (08:57→19:53)
[2018-12-11] MEDS: CMCS:Varenicline (NF) 1 MG TAB PO SCH (08:57)
[2018-12-11] MEDS: Pantoprazole TAB * 40 MG TAB PO SCH (08:57)
[2018-12-11] MEDS: Oxybutynin TAB* 5 MG PO SCH ×3 (08:58→19:54)
[2018-12-11] MEDS ORDERED: Spiriva Inhaler DEVICE* 1 EACH DEVICE INH ONE (09:00)
[2018-12-11] MEDS: Nicotine PATCH 21 MG/24 HR* PATCH TRANSDERM SCH (09:03)
--- NOTE | 2018-12-11 09:30 | PN ---
Progress Note - Progress Note Date of Service: 12/11/18 SOAP: Subjective: []Patient was seen and examined at bedside. She feels well without CP, SOB, dizziness or nausea. Objective: []General: NAD, appears well RLE: Right knee dressing CDI, thigh is soft, DF/PF intact, DP2+, sensation intact to light touch distally Calves supple and nontender without erythema, edema or palpable cords Assessment: []POD 1 sp RTK Plan: []WBAT PT/OT eliquis 2.5 mg po BID x 30 days post op Pt anticipates rehab need, has not yet participate with PT today Vital Signs Temp 97.9 F 12/11/18 03:27 Pulse 60 12/11/18 03:27 Resp 17 12/11/18 05:49 BP 109/47 12/11/18 03:27 Pulse Ox 96 12/11/18 03:27 Intake & Output 12/10/18 12/11/18 12/11/18 18:59 06:59 18:59 Intake Total 1250 900 Output Total 650 700 Balance 600 200 Weight 108 lb Intake: IV Fluids 1250 LR 1150 NS 100ML, Cefazolin 2G 100 IVPB 50 ABX - CEFAZOLIN 50 Oral 850 Output: Butler 500 700 Estimated Blood Loss 150 Other: # Bowel Movements 0 Laboratory Last Values Hgb 9.5 g/dL (12.0-16.0) L 12/11/18 05:35 Hct 30 % (33-41) L 12/11/18 05:35 Plt Count 139 10^3/uL (150-450) L 12/11/18 05:35 MPV 8.9 fL (7.4-10.4) 12/11/18 05:35 Sodium 139 mmol/L (135-145) 12/11/18 05:35 Potassium 4.2 mmol/L (3.5-5.0) 12/11/18 05:35 Chloride 102 mmol/L (101-111) 12/11/18 05:35 Carbon Dioxide 37 mmol/L (22-32) H 12/11/18 05:35 BUN 18 mg/dL (6-24) 12/11/18 05:35 Creatinine 0.57 mg/dL (0.51-0.95) 12/11/18 05:35 Est GFR ( Amer) 124.4 (>60) 12/11/18 05:35 Est GFR (Non-Af Amer) 102.8 (>60) 12/11/18 05:35 BUN/Creatinine Ratio 31.6 (8-20) H 12/11/18 05:35 Glucose 108 mg/dL (70-100) H 12/11/18 05:35 Calcium 8.4 mg/dL (8.6-10.3) L 12/11/18 05:35
[2018-12-11] MEDS: Atorvastatin* 40 MG TAB PO SCH (14:51)
[2018-12-11] MEDS: OLANzapine TAB*ODT* 5 MG PO SCH (18:10)
[2018-12-11] MEDS: Aspirin EC TAB* 81 MG TAB.EC PO SCH (19:54)
[2018-12-11] MEDS: Nicotine Patch Removal NOTE FOLLOW UP SCH (23:08)
[2018-12-12] MEDS: traMADol TAB* 50 MG PO PRN (04:11)
[2018-12-12 05:48] LABS: Hematocrit 26 % (33-41); Hemoglobin 8.1 g/dL (12.0-16.0); Mean Platelet Volume 8.7 fL (7.4-10.4); Platelet Count 105 10^3/uL (150-450)
[2018-12-12] MEDS: Tiotropium CAP.INH* CAP.INH/18 MCG (USE ORDER SET !) INH SCH (07:54)
[2018-12-12] MEDS ORDERED: ALENDRONATE 70 MG PO SCH (08:00)
--- NOTE | 2018-12-12 09:39 | PN ---
Progress Note - Progress Note Date of Service: 12/12/18 SOAP: Subjective: []Pt seen and examined at bedside. She feels very well without CP, SOB, dizziness, nausea. Right knee pain is well controlled. Objective: [] General: NAD, appears well RLE: Right knee dressing changed. Incision with well approximated edges, CDI without discharge or surrounding erythema. Thigh is soft, DF/PF intact, DP2+, sensation intact to light touch distally Calves supple and nontender without erythema, edema or palpable cords Assessment: []POD 2 sp RTK Plan: []WBAT PT/OT eliquis 2.5 mg po BID x 30 days post op Would need to be able to do 2 flights of stairs to return to her home. Needs CASTRO , first choice CR. PMRU unable to offer a bed Vital Signs Temp 99.4 F 12/12/18 03:32 Pulse 96 12/12/18 07:56 Resp 16 12/12/18 07:56 BP 128/65 12/12/18 03:32 Pulse Ox 96 12/12/18 07:56 Intake & Output 12/11/18 12/12/18 12/12/18 18:59 06:59 18:59 Intake Total 2406 680 240 Output Total 300 0 Balance 2106 680 240 Intake: IV Fluids 1496 LR 1496 IVPB 110 ABX - CEFAZOLIN 110 Oral 800 680 240 Output: Urine 300 0 Other: Estimated Void Large Large Medium # Bowel Movements 0 1 Estimated Stool Amount Large # Voids 1 3 1 Laboratory Last Values Hgb 8.1 g/dL (12.0-16.0) L 12/12/18 05:40 Hct 26 % (33-41) L 12/12/18 05:40 Plt Count 105 10^3/uL (150-450) L 12/12/18 05:40 MPV 8.7 fL (7.4-10.4) 12/12/18 05:40 Sodium 139 mmol/L (135-145) 12/11/18 05:35 Potassium 4.2 mmol/L (3.5-5.0) 12/11/18 05:35 Chloride 102 mmol/L (101-111) 12/11/18 05:35 Carbon Dioxide 37 mmol/L (22-32) H 12/11/18 05:35 BUN 18 mg/dL (6-24) 12/11/18 05:35 Creatinine 0.57 mg/dL (0.51-0.95) 12/11/18 05:35 Est GFR ( Amer) 124.4 (>60) 12/11/18 05:35 Est GFR (Non-Af Amer) 102.8 (>60) 12/11/18 05:35 BUN/Creatinine Ratio 31.6 (8-20) H 12/11/18 05:35 Glucose 108 mg/dL (70-100) H 12/11/18 05:35 Calcium 8.4 mg/dL (8.6-10.3) L 12/11/18 05:35
[2018-12-12] MEDS: PARoxetine HCL TAB* 10 MG PO SCH (10:59)
[2018-12-12] MEDS: Apixaban* 2.5 MG TAB PO SCH ×2 (11:00→22:59)
[2018-12-12] MEDS: Magnesium Hydroxide LIQ* 30 ML UDC PO SCH ×2 (11:00→22:59)
[2018-12-12] MEDS: Docusate CAP* 100 MG PO SCH ×2 (11:00→22:58)
[2018-12-12] MEDS: CMCS:Varenicline (NF) 1 MG TAB PO SCH (11:01)
[2018-12-12] MEDS: Oxybutynin TAB* 5 MG PO SCH ×3 (11:01→22:59)
[2018-12-12] MEDS: Pantoprazole TAB * 40 MG TAB PO SCH (11:02)
[2018-12-12] MEDS: Nicotine PATCH 21 MG/24 HR* PATCH TRANSDERM SCH (11:04)
[2018-12-12] MEDS ORDERED: Nicotine Lozenge mini 4 MG LOZNG.MINI MT PRN (12:00)
[2018-12-12] MEDS: Atorvastatin* 40 MG TAB PO SCH (14:21)
--- NOTE | 2018-12-12 14:35 | DS ---
Orthopedic Discharge Summary - Discharge Summary Date of Admission:12/10/18 Date of Discharge: 12/13/18 Date of Surgery: 12/10/18 Attending Orthopedic Provider: Dr Mehta Pre-operative Diagnosis: left knee osteoarthritis Operative Procedure: left total knee replacement Condition of Patient: stable History: DAWN JENKINS is a 78 year old F with years of increasingly severe left knee pain. Patient has failed conservative management and has elected to undergo a left total knee replacement Hospital Course: DAWN was admitted to [facility] on 12/10/18. Patient underwent a left total knee replacement without complication followed by a brief recovery in PACU and transfer to the Short Stay Surgical Unit in stable condition. Our hospitalist service, physical therapy and occupational therapy also participated in this patients care. Post-op day 1: patient was alert and in no acute distress. Dressing was clean, dry and intact. Operative extremity dorsiflexion and plantarflexion intact, sensation intact to light touch distally, DP2+. Post-op day two: dressing was changed, incision was clean , dry and intact. POD 3 patient appears well, dressing changed and incision CDI. Patient was deemed to be medically and orthopedically stable for discharge home. Physical therapy goals were met. Discharge Medications Medication Instructions Recorded Confirmed Type Alendronate (NF) Fosamax (NF) 70 mg PO WEEKLY 11/07/17 11/30/18 History Aspirin EC TAB* [Ecotrin EC Low 81 mg PO BEDTIME 11/07/17 12/07/18 History Dose 81 MG*] Atorvastatin* [Lipitor 40 MG*] 40 mg PO 1500 11/07/17 11/30/18 History Calcium Carbonate/Vitamin D2 1 tab PO BID 11/07/17 11/30/18 History [Oyster Shell Calcium-Vit D Tab] Docusate CAP* [Colace Cap*] 200 mg PO BEDTIME 11/07/17 11/30/18 History Omeprazole CAP (NF) [Prilosec CAP* 40 mg PO QAM 11/07/17 11/30/18 History 20 MG] Oxybutynin TAB* [Ditropan TAB*] 5 mg PO TID 11/07/17 11/30/18 History PARoxetine HCL TAB* [Paxil TAB*] 30 mg PO QAM 11/07/17 11/30/18 History Tiotropium CAP.INH* [Spiriva 1 cap PO QAM 11/07/17 11/30/18 History CAP.INH*] Nicotine Polacrilex [Nicotine 1 lozenge PO Q2H PRN 07/21/18 11/30/18 History Lozenge] OLANZapine [Zyprexa Zydis] 15 mg PO QPM 07/21/18 11/30/18 History Varenicline (NF) [Chantix 1 MG TAB 1 mg 11/30/18 History (NF)] Acetaminophen TAB* [Tylenol TAB*] 650 mg PO Q8H PRN tab 12/12/18 Rx Apixaban* [Eliquis*] 2.5 mg PO BID tab 12/12/18 Rx Docusate CAP* [Colace Cap*] 100 mg PO BID cap 12/12/18 Rx oxyCODONE/Acetamin 5/325 MG* 1 tab PO Q4H PRN tab MDD 10 12/12/18 Rx [Percocet 5/325 TAB*] oxyCODONE/Acetamin 5/325 MG* 2 tab PO Q4H PRN tab MDD 10 12/12/18 Rx [Percocet 5/325 TAB*] Discharge to [facility] in stable condition 12/13/18 Discharge Instructions following Orthopedic Surgery: Activity: * Weight Bearing as tolerated * Continue physical therapy and occupational therapy exercises as shown Wound care: * OK to shower on post-op day 3, no bathing, swimming, or submerging wound. * Use gentle soap, pat dry. Cover with gauze, LORI wrap or tape. * nurse to do wound checks. Call Orthopedic office for: * Increased drainage * Redness * Increased pain * Fever Go to ER with shortness of breath or chest pain. Diet: * Regular diet * Increase fluids and fiber to prevent constipation. * Continue to use stool softeners, call office if no bowel motion within 48 hours. Medications See Home Medication List in your packet for medications that you should take after discharge. DVT Prophylaxis: This medication increases bleeding tendency Eliquis Dosin.5 mg, 1 tab every 12 hours x 30 days Pain Control: Percocet Dosin/325 mg 1-2 tabs by mouth every 4-6 hours as needed for pain. Maximum of 10 tabs per day. Limit use, hold for sedation, wean off as soon as pain allows Please note that Percocet contains Tylenol (acetaminophen). Maximum daily dose of Tylenol is 4000 mg from all sources. Antibiotics are required prior to any dental work. FOLLOW UP: Follow up with [Tyson ] Within 10-14 days, call for appointment Please call our office with any questions or concerns ([phone])
[2018-12-12] MEDS: OLANzapine TAB*ODT* 5 MG PO SCH (17:56)
[2018-12-12] MEDS: Aspirin EC TAB* 81 MG TAB.EC PO SCH (22:59)
[2018-12-12] MEDS: Nicotine Patch Removal NOTE FOLLOW UP SCH (23:01)
[2018-12-13 08:01] LABS: Hematocrit 25 % (35-47); Hemoglobin 7.9 g/dL (12.0-16.0); Mean Platelet Volume 9.6 fL (7.4-10.4); Platelet Count 102 10^3/uL (150-450)
[2018-12-13] MEDS: Tiotropium CAP.INH* CAP.INH/18 MCG (USE ORDER SET !) INH SCH (08:16)
[2018-12-13] MEDS: Nicotine PATCH 21 MG/24 HR* PATCH TRANSDERM SCH (08:28)
[2018-12-13] MEDS: Magnesium Hydroxide LIQ* 30 ML UDC PO SCH (08:29)
[2018-12-13] MEDS: Apixaban* 2.5 MG TAB PO SCH (08:29)
[2018-12-13] MEDS: CMCS:Varenicline (NF) 1 MG TAB PO SCH (08:29)
[2018-12-13] MEDS: Oxybutynin TAB* 5 MG PO SCH (08:29)
[2018-12-13] MEDS: PARoxetine HCL TAB* 10 MG PO SCH (08:29)
[2018-12-13] MEDS: Pantoprazole TAB * 40 MG TAB PO SCH (08:29)
[2018-12-13] MEDS: Docusate CAP* 100 MG PO SCH (08:30)
[2018-12-13 08:38] VITALS: BP 132/58
--- NOTE | 2018-12-13 10:01 | PN ---
Progress Note - Progress Note Date of Service: 12/13/18 SOAP: Subjective: [] Pt seen at bedside. She feels well and desires DC to [facility]. Denies CP, SOB, dizziness ,nausea. Objective: []General: NAD, appears well RLE: Right knee dressing changed. Incision with well approximated edges, CDI without discharge or surrounding erythema. Thigh is soft, DF/PF intact, DP2+, sensation intact to light touch distally Calves supple and nontender without erythema, edema or palpable cords Assessment: []POD 3sp RTK Plan: []WBAT PT/OT eliquis 2.5 mg po BID x 30 days post op DC to CR Vital Signs Temp 98.5 F 12/13/18 07:59 Pulse 77 12/13/18 08:17 Resp 18 12/13/18 08:17 BP 132/58 12/13/18 07:59 Pulse Ox 97 12/13/18 08:17 Intake & Output 12/12/18 12/13/18 12/13/18 18:59 06:59 18:59 Intake Total 460 840 400 Output Total 300 0 0 Balance 160 840 400 Intake: Oral 460 840 400 Output: Urine 300 0 0 Other: Estimated Void Medium Large Date of Last Bowel 12/12/18 Movement # Bowel Movements 1 Estimated Stool Amount Large # Voids 1 1 Laboratory Last Values Hgb 7.9 g/dL (12.0-16.0) L 12/13/18 06:03 Hct 25 % (35-47) L 12/13/18 06:03 Plt Count 102 10^3/uL (150-450) L 12/13/18 06:03 MPV 9.6 fL (7.4-10.4) 12/13/18 06:03 Sodium 139 mmol/L (135-145) 12/11/18 05:35 Potassium 4.2 mmol/L (3.5-5.0) 12/11/18 05:35 Chloride 102 mmol/L (101-111) 12/11/18 05:35 Carbon Dioxide 37 mmol/L (22-32) H 12/11/18 05:35 BUN 18 mg/dL (6-24) 12/11/18 05:35 Creatinine 0.57 mg/dL (0.51-0.95) 12/11/18 05:35 Est GFR ( Amer) 124.4 (>60) 12/11/18 05:35 Est GFR (Non-Af Amer) 102.8 (>60) 12/11/18 05:35 BUN/Creatinine Ratio 31.6 (8-20) H 12/11/18 05:35 Glucose 108 mg/dL (70-100) H 12/11/18 05:35 Calcium 8.4 mg/dL (8.6-10.3) L 12/11/18 05:35
== END 2018-12-13 11:50 | DRG 470 ==
LOC: AA 11:14 → SSU 19:52
PROVIDERS: ADMIT Orthopaedic Surgery Adult Reconstructive Orthopaedic Surgery; ATTEND Orthopaedic Surgery Adult Reconstructive Orthopaedic Surgery
PROC: 0SRD0J9 Replacement of Left Knee Joint with Synthetic Substitute, Cemented, Open Approach (ICD-10-PCS; principal; 2018-12-10 13:00)
DX: M17.12 Unilateral primary osteoarthritis, left knee (principal); K21.9 Gastro-esophageal reflux disease without esophagitis; I25.10 Atherosclerotic heart disease of native coronary artery without angina pectoris; F17.210 Nicotine dependence, cigarettes, uncomplicated; M25.462 Effusion, left knee; M25.762 Osteophyte, left knee; K22.70 Barrett's esophagus without dysplasia; M81.0 Age-related osteoporosis without current pathological fracture; F20.9 Schizophrenia, unspecified; R32 Unspecified urinary incontinence; J43.2 Centrilobular emphysema; G40.909 Epilepsy, unspecified, not intractable, without status epilepticus; K57.90 Diverticulosis of intestine, part unspecified, without perforation or abscess without bleeding; F32.9 Major depressive disorder, single episode, unspecified; E55.9 Vitamin D deficiency, unspecified; Z86.73 Personal history of transient ischemic attack (TIA), and cerebral infarction without residual deficits; Z83.3 Family history of diabetes mellitus; Z82.5 Family history of asthma and other chronic lower respiratory diseases; Z82.49 Family history of ischemic heart disease and other diseases of the circulatory system; Z79.82 Long term (current) use of aspirin
CPT/HCPCS: 36415; 80048; 85014; 85018; 85049; 88305; 88311; 94640; A9270-GY; C1776; G8978-GP-CJ; G8979-GP-CI; G8987-GO-CJ; G8988-GO-CI; J0690; J1100; J2250; J2704; J2795; J3010

== ENCOUNTER 2019-01-01 14:40 | Observation (INO) | payer MEDICARE, BC, OTHER ==
--- OUTSIDE RECORDS SUMMARY | 2019-01-01 14:57 | XMS REPORT | Continuity of Care Document ---
:1940 External Reference #:[id number] Author Name Sarah Keita Care Team Providers Name Role Phone Valentino Correia MD Primary Care Physician Unavailable Payers Date Identification Numbers Payment Provider Subscriber Policy Number: [id number] Medicare Gloria Watson PayID: [id number] [address] [facility] [place] [address] Expires: 2018 Policy Number: [id number] Neo Watson PayID: [id number] [address] [place] [id number] Expires: 2018 Policy Number: [id number] Medicare Gloria Watson PayID: [id number] [address] [place] [address] Expires: 2018 Policy Number: [id number] [facility] Damian Watson PayID: [id number] [address] [place] [address] Expires: 2018 Policy Number: [id number] Medicaid Gloria Watson Group Name: 1 1 [address] PayID: [id number] [place] [address] Expires: 2018 Policy Number: [id number] Neo Watson PayID: [id number] [address] [facility] [place] [address] Policy Number: [id number] Medicaid Gloria Watson Group Name: 1 1 [address] PayID: [id number] [place] [address] Problems Active Problems Provider Date Localized, primary osteoarthritis Danika Mehta M.D. Onset: 07/27/2018 Family History Date Family Member(s) Observation Comments General Breast Cancer General Chronic Obstructive Pulmonary Disease (COPD) General Diabetes Social History Type Date Description Comments Sex Unknown Occupation [employer] Tobacco Use Start: Unknown Current Cigarette Smoker 1 Pack Daily Tobacco Use Start: Unknown Never Smoked Cigars Tobacco Use Start: Unknown Never Smoked A Pipe Smokeless Tobacco Never Used Smokeless Tobacco ETOH Use Denies alcohol use Tobacco Use Start: Unknown Patient is a current smoker, smokes every day Smoking Status Reviewed: 12/26/18 Patient is a current smoker, smokes every day Exercise Type/Frequency Exercises sporadically Allergies, Adverse Reactions, Alerts Active Allergies Reaction Severity Comments Date Aspirin 03/25/2013 Medications Active Medications SIG Qnty Indications Ordering Date Provider Tramadol HCL 1 tablet by mouth 30tabs M17.12 Danika Mehta 07/27/2018 50mg every 6 hours as M.DJosep Tablets needed pain Ibuprofen 1 po q6h prn 60tabs Jazmin Montoya 08/22/2013 600mg Tablets Justin Montilla Oyster Shell Unknown Calcium/D Spiriva Handihaler 1 unit inhalation Unknown daily 18mcg Capsules Eq Aspirin Adult Low 1 by mouth every Unknown Dose day 81mg Tablets Atorvastatin Calcium 1 by mouth every Unknown day 40mg Tablets Omeprazole 1 by mouth every Unknown 40mg day Capsules DR Castro Powder 1 Tbsp mixed c Unknown Powder liquid daily Clindamycin HCL 2 tab tid 4caps Unknown 300mg Capsules Amoxicillin 1 po bid 20tabs Unknown 875mg Tablets Colace 2 caps po qhs Unknown 100mg Capsules Calcium 600+D 1 po bid 60tabs Unknown [id number] Tablets Ditropan XL 1 po qd 90tabs Unknown 5mg Tablets ER 24HR Nexium 1 po qd 90caps Unknown [address]mg Capsules DR Paxil one q am 90tabs Unknown 30mg Tablets Zyprexa 1 tab po daily Unknown 15mg Tablets Fosamax one tablet weekly 12tabs Unknown 70mg Tablets Medications Administered in Office Medication SIG Qnty Indications Ordering Provider Date Depomedrol 40MG Danika Mehta M.D. 07/27/2018 Injection Vital Signs Date Vital Result Comment 12/26/2018 10:44am Height 63 inches 5'3" Weight 108.00 lb Body Temperature 97.1 F BMI (Body Mass Index) 19.1 kg/m2 12/16/2018 12:34pm Weight 130.00 lb Heart Rate 78 /min BP Systolic 104 mmHg BP Diastolic 60 mmHg Body Temperature 97.0 F O2 % BldC Oximetry 97 % 11/30/2018 4:03pm Height 63 inches 5'3" Weight [...] Test Result H/L Range Note Inr/Protime 11/30/2018 [facility] Inr 0.90 N 0.77-1.[address] [place] [address] [phone] Laboratory test 11/30/2018 [facility] Partial 33.7 seconds N 26.0-36.[address] [place] [address] PTT [phone] Type & Screen 11/30/2018 [facility] Patient Blood O Positive [address] [place] [address] [phone] Antibody Screen NEGATIVE Urinalysis Profile 11/30/2018 [facility] Urine Color Yellow [address] [place] [address] [phone] Urine Appearance Clear Urine Specific [place] 1.009 Low 1.010-1.030 Urine pH 7.0 N 5-9 Urine Urobilinogen Negative Negative Urine Ketones Negative Negative Urine Protein Negative Negative Urine Leukocytes Negative Negative Urine Blood Negative Negative Urine Nitrite Negative Negative Urine Bilirubin Negative Negative Urine Glucose Negative Negative Urine Culture And 11/30/2018 [facility] Urine Culture SEE RESULT [address] [place] [address] [phone] Laboratory test 03/25/2013 [facility] Cytology Nongyn RUN DATE: [address] [place] [address] NOTE> [phone] PAIN IN LEFT KNEE, EFFUSION, LEFT KNEE, UNILATERAL 2 AA 12/10 3 SEE RESULT BELOW Name: GLORIA WATSON : [address]: Danika Mehta MD Acct: [id number] Unit: [id number] AGE: 78 Location: [facility] Re11/30/18 SEX: F Status: REG REF SPEC: [id number] MARIN: 11/30/18-[address] [facility] [address]: Danika Mehta MD REQ: [id number] RECD: 11/30/18 STATUS: [facility] DR: Valentino Correia MD _ SOURCE: URINE SPDES: ORDERED: Urine Culture QUERIES: Urine Source: Clean Catch Procedure Result Reported Site Urine Culture Final 12/02/18- 911 ML No growth of clinically significant organisms * ML - Main Lab . END OF REPORT DEPARTMENT OF PATHOLOGY, [facility] [place], [place] [address] Royce An M.D. Director [facility] # [id number] RUN DATE: 03/26/13 [facility] LAB LIVE PAGE 1 RUN TIME: [address] [facility] [employer] [place], [place] [address] Specimen Inquiry Name: GLORIA WATSON : [address]: Drew Lorenzo MD Acct: [id number] Unit: [id number] AGE: 73 Location: [facility] Re03/25/13 SEX: F Status: REG REF SPEC: [id number] MARIN: 03/25/[address]: Drew Lorenzo MD REQ: [id number] RECD: 03/25/13 STATUS: SOUT _ ORDERED: FN [...] performed at Main Lab DEPARTMENT OF PATHOLOGY, [address] [place] [address] Royce An M.D. Director [facility] Permit #[id number] Procedures Date Code Description Status 12/10/2018 45218 TKR Total Knee Replacement Completed 12/10/2018 30235 TKR Total Knee Replacement Completed 07/27/201816710 Inject/Drain Joint/Bursa Major W/O US Completed 09/15/2014 07962 ECHO Transthorasic Realtime 2D W Doppler & Color Flow Hosp Completed 08/26/2013 95559 EEG Recording Awake & Drowsy Completed 03/25/2013 33844 Fibroptic Laryngoscopy Completed 03/25/2013 49334 Fine Needle Aspiration; W/O Imaging Guidance Completed 12/14/2012 64404 Rad Exam; Foot Comp Completed 11/14/2012 18826 FX Metatarsal Care Completed 04/13/2012 33237 EKG, Interpretation Only Completed Encounters Type Date Location Provider Dx Diagnosis Office Visit 12/16/2018 [facility] Lois Hutchinson DO Z96.652 Presence of left 9:00a artificial knee joint F20.9 Schizophrenia, unspecified J96.11 Chronic respiratory failure with hypoxia J44.9 Chronic obstructive pulmonary disease, unspecified F17.210 Nicotine dependence, cigarettes, uncomplicated Office Visit 12/10/2018 [facility] F20.9 Schizophrenia, 9:53a Assoc,rogelio Acevedo, ALEX unspecified Hospitalists K21.9 Gastro-esophageal reflux disease without esophagitis N39.492 Postural (urinary) incontinence F17.200 Nicotine dependence, unspecified, uncomplicated Office Visit 10/12/2018 1:00p Orthopedic Danika Mehta, M25.572 Pain in left Services Of Carolyn Anderson ankle and joints of left foot 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 M.D. 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 482.9 Pneumonia Due To Assoc,pc Karan, N.P. Bacterial Hospitalists Infection Unspec 496 COPD Airway Obstruction Chronic Not Class Elsewhere 295.90 Schizophrenia Unspec 305.1 Tobacco Use Disorder Office Visit 10/17/2014 1:56p Pulmonology And Latanya 496 COPD Airway Sleep Services Of MD Gustavo Obstruction Seam Feller Chronic Not Class Elsewhere 780.60 Fever, Unspecified Office Visit 10/16/2014 2:03p [facility] Emily 482.9 Pneumonia Due Assoc,rogelio Ricardo, PRINCIPAL CONSULTING ENGINEER To Bacterial Hospitalists Infection Unspec 496 COPD Airway Obstruction Chronic Not Class Elsewhere 295.90 Schizophrenia Unspec 305.1 Tobacco Use Disorder Office Visit 10/16/2014 1:49p Pulmonology And Latanya 496 COPD Airway Sleep Services Of MD Gustavo Obstruction Seam Feller Chronic Not Class Elsewhere 780.2 Syncope & Collapse 780.60 Fever, Unspecified Office Visit 10/15/2014 2:02p [facility] Geovanny Conrad 482.9 Pneumonia Due To Assoc,rogelio Torres Bacterial Hospitalsai Anderson Infection Unspec 496 COPD Airway Obstruction Chronic Not Class Elsewhere 295.90 Schizophrenia Unspec 305.1 Tobacco Use Disorder Office Visit 10/14/2014 [facility] Joseluis Penn 482.9 Pneumonia Due 2:02p Assoc,rogelio VALENCIA M.D. To Bacterial Hospitalists Infection Unspec 496 COPD Airway Obstruction Chronic Not Class Elsewhere 295.90 Schizophrenia Unspec 305.1 Tobacco Use Disorder Office Visit 09/15/2014 11:36a [facility] Al 435.9 TIA Ischemia Assoc,rogelio Arteaga M.D. Cerebral Hospitalists Transient Unspec 496 COPD Airway Obstruction Chronic Not Class Elsewhere 530.81 Esophageal Reflux 295.90 Schizophrenia Unspec Office Visit 09/15/2014 [facility] Geovanny Corcoran, 780.2 Syncope & 11:23a Services Of [facility] Justin Collapse Office Visit 09/14/2014 [facility] Joseluis Penn 435.9 TIA Ischemia 11:35a Assocrogelio II, M.D. Cerebral Hospitalists Transient Unspec 295.90 Schizophrenia Unspec 530.81 Esophageal Reflux 496 COPD Airway Obstruction Chronic Not Class Elsewhere Office Visit 08/22/2013 12:00p [facility] Jazmin Montoya 780.39 Convulsions Other Neurologic Justin Montilla Services Of [facility] Office Visit 03/25/2013 10:15a ENT Services Of Drew 784.2 Swelling In Head [facility] AT Justin Lorenzo & Neck Crewe 785.6 Lymph Nodes Enlargement Plan of Treatment Future Appointment(s):01/23/2019 1:00 pm - Danika Mehta M.D. at Orthopedic Services Of C.M.AJosep12/26/2018 - Danika Mehta M.D.Z96.652 Presence of left artificial knee jointNew Therapy:Physical TherapyFollow up:Follow up: 4 gasrsJ45.562 Pain in left knee
--- NOTE | 2019-01-01 17:25 | ED ---
Lower Extremity - HPI Summary HPI Summary: This patient is a 78 year old F presenting to [facility] accompanied by family with a chief complaint of L knee pain, erythema since today, 01/01/19. Patient stated that she received a L knee surgery [address] Mehta. She denies any type of fall but states that there was pain in her left knee with ambulation. The patient reports aggravating factors of movement and weight bearing. The patient reports alleviating factors of rest. She has been in rehab at [facility] but reports never being in any pain until today. The patient reports that her leg has swelled more than usual. - History of Current Complaint Chief Complaint: EDExtremityLower Stated Complaint: LEFT KNEE CAP PAIN PER PT Time Seen by Provider: 01/01/19 16:15 Hx Obtained From: Patient, Family/Admittance Attendant Mechanism Of Injury: Unknown Onset of Pain: Hours - This morning, 01/01/19 Onset/Duration: Still Present Severity Initially: Mild Severity Currently: Mild Pain Intensity: 3 Pain Scale Used: 0-10 Numeric Timing: Constant Location: Other - L knee Associated Signs And Symptoms: Positive: Swelling, Redness, Knee Pain Aggravating Factor(s): Standing, Ambulation, Weight Bearing Alleviating Factor(s): Rest - Allergies/Home Medications Allergies/Adverse Reactions: Allergies Allergy/AdvReac Type Severity Reaction Status Date / Time aspirin AdvReac Abdominal Verified 12/10/18 12:12 Pain PMH/Surg Hx/FS Hx/Imm Hx Previously Healthy: No Endocrine/Hematology History: Denies: Hx Anticoagulant Therapy, Hx Diabetes, Hx Thyroid Disease Cardiovascular History: Reports: Hx Hypercholesterolemia Denies: Hx Hypertension, Hx Pacemaker/ICD, Other Cardiovascular Problems/ Disorders Respiratory History: Reports: Hx Asthma, Hx Chronic Obstructive Pulmonary Disease (COPD), Other Respiratory Problems/Disorders - Uses Oxygen as needed during the day, and 4 liters at night nasal canula GI History: Reports: Hx Gastroesophageal Reflux Disease - omeprazole, Hx Hiatal Hernia, Other GI Disorders - Lemus's Esophagus, Diverticulosis History: Reports: Other Problems/Disorders - Urinary incontience Denies: Hx Renal Disease Musculoskeletal History: Reports: Hx Arthritis - Osteoarthritis, Hx Rheumatoid Arthritis, Hx Osteoporosis, Other Musculoskeletal History - Osteoporosis, Hx ankle fractures Sensory History: Reports: Hx Cataracts - Bilateral cataract extraction, Hx Contacts or Glasses - Glasses Denies: Hx Hearing Aid Opthamlomology History: Reports: Hx Cataracts - Bilateral cataract extraction, Hx Contacts or Glasses - Glasses Neurological History: Reports: Hx Seizures - last seizure more than 10 years ago -no current meds, Other Neuro Impairments/Disorders - Schizophrenia Denies: Hx Dementia Psychiatric History: Reports: Hx Depression, Hx Inpatient Treatment, Hx Community Mental Health Tx, Hx Schizophrenia, Other Psychiatric Issues/ Disorders - [facility] Denies: Hx Panic Disorder, Hx Substance Abuse - Surgical History Surgery Procedure, Year, and Place: Bilat ankle fractures - L 12 yrs ago; R 3 yrs ago. Bilateral cataract extraction -per pt Hx Anesthesia Reactions: No - Immunization History Date of Tetanus Vaccine: unk Infectious Disease History: No Infectious Disease History: Denies: Hx Hepatitis, Hx Human Immunodeficiency Virus (HIV), History Other Infectious Disease, Traveled Outside the [place] in Last 30 Days - Family History Known Family History: Positive: Other Family History: Bone Marrow Cancer; - Social History Alcohol Use: None Hx Substance Use: No Substance Use Type: Reports: None Hx Tobacco Use: Yes Smoking Status (MU): Light Every Day Tobacco Smoker Type: Cigarettes Amount Used/How Often: 1 PPD for 60 years Have You Smoked in the Last Year: Yes Review of Systems Positive: Other - L leg swelling, pain with weight bearing Positive: Other - erythema All Other Systems Reviewed And Are Negative: Yes Physical Exam - Summary Physical Exam Summary: GENERAL: Patient is a well-developed and nourished FEMALE who is lying comfortable in the stretcher. Patient is not in any acute respiratory distress. HEAD AND FACE: No signs of trauma. No ecchymosis, hematomas or skull depressions. No sinus tenderness. EYES: PERRLA, EOMI x 2, No injected conjunctiva, no nystagmus. EARS: Hearing grossly intact. Ear canals and tympanic membranes are within normal limits. MOUTH: Oropharynx within normal limits. NECK: Supple, trachea is midline, no adenopathy, no JVD, no carotid bruit, no c- spine tenderness, neck with full ROM. CHEST: Symmetric, no tenderness at palpation LUNGS: Clear to auscultation bilaterally. No wheezing or crackles. CVS: Regular rate and rhythm, S1 and S2 present, no murmurs or gallops appreciated. ABDOMEN: Soft, non-tender. No signs of distention. No rebound no guarding, and no masses palpated. Bowel sounds are normal. EXTREMITIES: FROM in all major joints. L knee has swelling, L knee 1+ edema. NEURO: Alert and oriented x 3. No acute neurological deficits. Speech is normal and follows commands. SKIN: Dry and warm, L knee erythema. Triage Information Reviewed: Yes Vital Signs On Initial Exam: Initial Vitals Temp Pulse Resp BP Pulse Ox 98.8 F 84 18 138/73 93 01/01/19 14:41 01/01/19 14:41 01/01/19 14:41 01/01/19 14:41 01/01/19 14:41 Vital Signs Reviewed: Yes Diagnostics - Vital Signs Vital Signs Temp Pulse Resp BP Pulse Ox 01/01/19 14:41 98.8 F 84 18 138/73 93 - Laboratory Result Diagrams: 01/03/19 05:07 01/03/19 05:07 Lab Statement: Any lab studies that have been ordered have been reviewed, and results considered in the medical decision making process. - Radiology Knee X-Ray Radiology Interpretation Completed By: Radiologist Summary of Radiographic Findings: 1. STATUS POST TOTAL LEFT KNEE REPLACEMENT SURGERY. 2. LARGE JOINT EFFUSION. ED physician has reviewed this report. - Ultrasound No standard instances Ultrasound Interpretation Completed By: Radiologist Summary of Ultrasound Findings: Venous Dopler Study found: 1. NO EVIDENCE FOR DEEP VENOUS THROMBOSIS. 2. COMPLEX FLUID COLLECTION IN THE POPLITEAL FOSSA. ED Physician has reviewed this report. Lower Extremity Course/Dx - Course Assessment/Plan: This patient is a 78 year old F presenting to [facility] accompanied by family with a chief complaint of L knee pain since today, . Patient stated that she received a L knee surgery [address] Mehta. She denies any type of fall or trauma but states that there was pain in her left knee with ambulation. The patient reports aggravating factors of movement and weight bearing. The patient reports alleviating factors of rest. She has been in rehab at [facility] but reports never being in any pain until today. The patient reports that her leg has swelled more than usual. X-ray of the left knee impression: Status post total left knee replacement surgery. Larger joint effusion. Left lower extremity ultrasound impression: No evidence for deep venous thrombosis. This complex fluid collection in the popliteal fossa. And discussed the case with Dr. Mehta and she agrees with the patient to be discharged home with follow-up with her office. The patient has a lot of pain and she has and difficulty on ambulation. The patient was [facility] therefore she cannot [facility] back to the [facility]. Also the patient lives in a [facility] and the [facility] would not accept the patient with knee pain. Therefore I discussed again the case with and Dr. Mehta and she will consult for the patient if the patient is medically to the hospital services. Therefore discussed my physical exam and findings with Dr. Barnes from the hospital services was accepted the patient for admission. - Diagnoses Differential Diagnosis/HQI/PQRI: Positive: Cellulitis, Contusion, Dislocation, DVT, Sprain, Strain Provider Diagnoses: Knee pain, acute - Physician Notifications Discussed Care Of Patient With: Buzz Barnes Time Discussed With Above Provider: 18:43 Instructed by Provider To: Admit As Inpatient - Patient's case discussed with Dr. Barnes, Dr. Barnes accepts for admission Discharge - Sign-Out/Discharge Documenting (check all that apply): Patient Departure - admit Patient Received Moderate/Deep Sedation with Procedure: No - Discharge Plan Condition: Good Disposition: ADMITTED TO [facility] - Billing Disposition and Condition Condition: STABLE Disposition: Admitted to [facility] - Attestation Statements Document Initiated by Ernesto: Yes Documenting Scribe: Fabio Wiseman Provider For Whom Ernesto is Documenting (Include Credential): Jordan Belcher MD Scribe Attestation: IFabio, scribed for Jordan Belcher MD on 01/03/19 at 1148. Scribe Documentation Reviewed: Yes Provider Attestation: The documentation as recorded by the ernesto, Fabio Wiseman accurately reflects the service I personally performed and the decisions made by me, Jordan Belcher MD Status of Scribe Document: Viewed
[2019-01-01] MEDS ORDERED: oxyCODONE/Acetamin 5/325 MG* TAB PO ONE (18:36)
[2019-01-01 18:56] LABS: Hematocrit 33 % (35-47); Hemoglobin 10.7 g/dL (12.0-16.0); Mean Corpuscular HGB Conc 32 g/dL (31-36); Mean Corpuscular Hemoglobin 27 pg (27-31); Mean Corpuscular Volume 85 fL (80-97); Mean Platelet Volume 7.7 fL (7.4-10.4); Platelet Count 321 10^3/uL (150-450); Red Blood Count 3.93 10^6 /uL (3.70-4.87); Red Cell Distribution Width 16 % (10.5-15); White Blood Count 8.3 10^3/uL (3.5-10.8)
[2019-01-01 19:08] LABS: Albumin/Globulin Ratio 1.3 (1-3); BUN/Creatinine Ratio 35.4 (8-20); C Reactive Protein 5.8 mg/L (<8.01); Calcium 9.8 mg/dL (8.6-10.3); EGFR African American 151.7 (>60); EGFR Non-African American 125.4 (>60); Globulin 3.1 g/dL (2-4); Total Bilirubin 0.4 mg/dL (0.2-1.0); Total Protein 7.1 g/dL (6.4-8.9)
[2019-01-01 19:15] LABS: ABS Basophils 0.1 10^3/ul (0-0.2); ABS Eosinophils 0.2 10^3/ul (0-0.6); ABS Lymphocytes 1.7 10^3/ul (1.0-4.8); ABS Monocytes 0.6 10^3/ul (0-0.8); ABS Neutrophils 5.7 10^3/ul (1.5-7.7)
[2019-01-01 19:19] LABS: ABS Eosinophils 0.1 10^3/ul (0-0.6); ABS Neutrophils 5.7 10^3/ul (1.5-7.7)
[2019-01-01 19:20] LABS: Polychromasia 1+
[2019-01-01 19:23] LABS: Urine Appearance Clear; Urine Bilirubin Negative (Negative); Urine Blood Negative (Negative); Urine Color Yellow; Urine Glucose Negative (Negative); Urine Ketones Negative (Negative); Urine Nitrite Negative (Negative); Urine Protein Negative (Negative); Urine Specific Gravity 1.006 (1.010-1.030); Urine Urobilinogen Negative (Negative)
[2019-01-01] MEDS ORDERED: Albuterol/Ipratropium NEB.SOL* Albuterol 2.5 MG/Ipratropium 0.5 MG 3 ML INH PRN (19:59)
[2019-01-01] MEDS ORDERED: Nicotine Lozenge* 4 MG LOZENGE MT PRN (20:37)
[2019-01-01] MEDS ORDERED: Acetaminophen TAB* 325 MG PO PRN (20:37)
[2019-01-01] MEDS ORDERED: oxyCODONE/Acetamin 5/325 MG* TAB PO PRN (20:37)
[2019-01-01] MEDS ORDERED: Docusate CAP* 100 MG PO SCH (21:45)
[2019-01-01] MEDS: Oxybutynin TAB* 5 MG PO SCH (22:53)
[2019-01-01] MEDS: Apixaban* 2.5 MG TAB PO SCH (22:53)
[2019-01-01] MEDS: Aspirin EC TAB* 81 MG TAB.EC PO SCH (22:53)
--- NOTE | 2019-01-02 01:15 | HP ---
CC: Valentino Correia MD; Danika Mehta MD * HISTORY AND PHYSICAL: DATE OF ADMISSION: 01/01/19 PRIMARY CARE PROVIDER: Valentino Correia MD. ORTHOPEDIC SURGEON: Danika Mehta MD. ATTENDING PHYSICIAN: Yasemin Clayton DO * (dictated by ALEXY Reynoso). CHIEF COMPLAINT: Left knee pain, swelling. HISTORY OF PRESENT ILLNESS: Ms. Watson is a 78-year-old female with a past medical history of left total knee arthroplasty on 12/10/18, COPD, asthma, hyperlipidemia who presented to the ER today with complaints of left knee swelling and pain. The patient is noted to have had a left total knee arthroplasty with Dr. Mehta on 12/10/18. [facility] for [facility]acute [facility]hab. She was discharged from [facility] today. It is noted that the patient was doing well. She was walking with a walker, which is her baseline. She was using stairs without difficulty. She felt well to return to her home at [facility]. As she was being wheeled out to her car, she stood from the wheelchair and had sudden pain in the left knee and now, she is unable to walk or stand without pain. She is unable to be admitted back to [facility] as she was discharged and she is unable to return to her intermediate at [facility] as she cannot use the stairs that go up to her second floor residence. Currently, the patient is able to bend the knee approximately 90 degrees before experiencing increasing pain. She states that her left knee has been swollen the whole time, although she believes that the swelling may have increased today. She states that the pain is at the kneecap area and there is no pain posteriorly. She states she is unable to walk. She denies numbness or tingling in the extremities. She denies chest pain, shortness of breath, fever , cough, wheeze, abdominal pain, nausea, vomiting, diarrhea, constipation, or pain in the calf. PAST MEDICAL HISTORY: 1. COPD requiring 4 L of oxygen at all times. 2. Asthma. 3. Coronary artery disease. 4. GERD. 5. History of CVA. 6. Hyperlipidemia. 7. Schizophrenia. 8. Depression. PAST SURGICAL HISTORY: Left ankle 12 years ago, right ankle 3 years ago, and bilateral cataracts. HOME MEDICATIONS: 1. Acetaminophen 650 mg p.o. q.8 hours p.r.n. 2. Alendronate 70 mg p.o. weekly. 3. Apixaban 2.5 mg p.o. b.i.d. 4. Aspirin 81 mg p.o. at bedtime. 5. Atorvastatin 40 mg p.o. at 1500. 6. Calcium carbonate/vitamin D2 one tab p.o. b.i.d. 7. Docusate 200 mg p.o. at bedtime. 8. Nicotine polacrilex 1 lozenge p.o. q.2 hours p.r.n. 9. Olanzapine 15 mg p.o. q.p.m. 10. Omeprazole 40 mg p.o. q.a.m. 11. Oxybutynin 5 mg p.o. t.i.d. 12. Oxycodone/acetaminophen 5 mg/325 mg 1 tab p.o. q.4 hours p.r.n. for moderate pain, MDD 10. 13. Paroxetine 30 mg p.o. q.a.m. 14. Tiotropium 1 capsule p.o. q.a.m. 15. Varenicline 1 mg p.o. q.d. DRUG ALLERGIES: ASPIRIN nonenteric coated leads to abdominal pain. FAMILY HISTORY: Positive for prostate cancer. Denies family history of heart disease, CVA, and diabetes mellitus. SOCIAL HISTORY: The patient is a former smoker. She has not smoked for the past approximately 3 weeks since she has had her surgery. Today, she is noted to have had 1 cigarette. She does not report alcohol use. She lives at [facility] on the second floor. REVIEW OF SYSTEMS: a 10-point review of systems was performed and all the pertinent positives and negatives are in the HPI. All other systems are negative. PHYSICAL EXAMINATION GENERAL: Ms. Watson is a well-developed, well-nourished older white woman who appears older than her stated age. She is sitting up comfortably in bed. She is on 4 L of oxygen at the time. She appears to be in no acute distress. VITAL SIGNS: Temperature 98.8 temporal, heart rate 84, respiratory rate 17, oxygen saturation 93% on 4 L, blood pressure 138/73. HEENT: PERRL. Extraocular movements are intact. Sclerae are without icterus. Hearing is grossly intact. Oral mucous membranes are moist. Edentulous. No lesions. The pharynx is clear. CARDIOVASCULAR: Regular rate and rhythm with S1 and S2 present. There are no murmurs, rubs, clicks, or gallops. RESPIRATORY: Symmetrical chest expansion without use of accessory muscles. There are no rhonchi or rubs. There is faint wheezing throughout bilateral lung patel. ABDOMEN: Flat. Bowel sounds noted in all quadrants. The abdomen is soft. There is no tenderness to palpation. There is no hepatosplenomegaly. MUSCULOSKELETAL: Upper extremities with full range of motion, strength 5/5. Right lower extremity within normal limits. Left knee nonerythematous with edema. The patient is noted to have 1+ pitting edema in the lower extremity from the knee distally. Surgical incision site is clean, dry, and intact and remains approximated. [place] have been removed. There is no tenderness to palpation about the lower extremity. The patient is able to flex the knee approximately 90 degrees. It is noted that the patient has a chronic left ankle deformity. EXTREMITIES: Skin is warm and smooth bilaterally. There is no clubbing or cyanosis. Again noted is left lower extremity edema. Radial and pedal pulses are palpable bilaterally. Capillary refill less than 2. NEUROLOGIC: The patient is awake. She is alert and oriented. She is able to move all of her extremities. DIAGNOSTIC STUDIES/LAB DATA: Knee x-ray on 01/01/19, impression: Status post total left knee replacement surgery, large joint effusion. Left venous ultrasound, impression: No evidence for deep venous thrombosis. Complex fluid collection in the popliteal fossa. HGB 10.7, HCT 33. ASSESSMENT AND PLAN: Ms. Watson is a 78-year-old female with a past medical history of chronic obstructive pulmonary disease, asthma, hyperlipidemia who presents to the ER today with left knee pain and swelling. She is found to have a joint effusion. She is unable to return to her home at [facility] due to inability to ambulate up stairs. The patient will be admitted to observation for primary diagnoses: 1. Left knee pain and swelling. The patient has left knee pain and swelling immediately after discharge from [facility] after standing to move from wheelchair to car. Since then, she has had pain and slight increase in swelling. She is unable to ambulate, making her unable to return to [facility], where she lives on the second floor. Dr. Mehta will be consulted tomorrow. She has been made aware of the situation. At this time, the patient will be encouraged to wrap and elevate the left lower extremity. Ice is ordered p.r.n. pain. Physical therapy, occupational therapy ordered. The patient will continue her home medications of oxycodone/acetaminophen q.4 hours p.r.n. for pain. We will continue her docusate at this time for bowel regimen while she is on opiates. Her apixaban 2.5 mg p.o. b.i.d. will also be continued. 2. Chronic obstructive pulmonary disease. Continue home medication of Spiriva. 3. Gastroesophageal reflux disease. Continue omeprazole. 4. Depression. Continue paroxetine and olanzapine. 5. Hyperlipidemia. Continue atorvastatin. 6. Tobacco abuse. Continue patch and tobacco replacement p.r.n. 7. Code status. Full code. 8. DVT prophylaxis. According to the DVT risk assessment, the patient scores 3 and is placed in the high-risk category. She will be continued on her apixaban as ordered by orthopedic surgery. TIME SPENT: Approximately 45 minutes were spent on this admission; greater than half that time was spent [id number] with the patient and her family members obtaining history, performing physical, and reviewing the plan of care. The case has been reviewed with my attending, Dr. Clayton, who is in agreement with the plan of care. ALEXY TRENT [id number]/[facility] #: [id number] [facility]
--- NOTE | 2019-01-02 07:45 | PN ---
Progress Note - Progress Note Date of Service: 01/02/19 SOAP: Subjective: Pt. reports left knee pain is improving. Objective: Vital Signs: Temp Pulse Resp BP Pulse Ox 97.5 F 57 14 123/53 100 01/02/19 03:49 01/02/19 03:49 01/02/19 03:49 01/02/19 03:49 01/02/19 03:49 Laboratory Results - last 24 hr 01/01/19 01/01/19 01/01/19 18:45 18:45 19:10 WBC 8.3 RBC 3.93 Hgb 10.7 L Hct 33 L MCV 85 MCH 27 MCHC 32 RDW 16 H Plt Count 321 MPV 7.7 Neut % (Auto) Not Reportable Lymph % (Auto) Not Reportable [place] % (Auto) Not Reportable Eos % (Auto) Not Reportable Baso % (Auto) Not Reportable Absolute Neuts (auto) 5.7 Absolute Lymphs (auto) 1.7 Absolute Monos (auto) 0.6 Absolute Eos (auto) 0.2 Absolute Basos (auto) 0.1 Absolute Nucleated RBC 0.0 Immature Gran % 1.0 Neutrophils % 67.0 Lymphocytes % 20.0 Reactive Lymphs % 1.0 Monocytes % 10.0 Eosinophils % 1.0 Basophils % 0.0 Myelocytes % 1.0 Nucleated RBC % Not Reportable Abs Neuts (Manual) 5.7 Abs Lymphs (Manual) 1.8 Abs Monocytes (Manual) 0.8 Absolute Eos (Manual) 0.1 Abs Basophils (Manual) 0.0 Normal RBC Morphology Not Reportable Polychromasia 1+ Anisocytosis 1+ Elliptocytes 1+ Sodium 135 Potassium 5.0 Chloride 96 L Carbon Dioxide 36 H Anion Gap 3 BUN 17 Creatinine 0.48 L Est GFR ( Amer) 151.7 Est GFR (Non-Af Amer) 125.4 BUN/Creatinine Ratio 35.4 H Glucose 110 H Calcium 9.8 Total Bilirubin 0.40 AST 14 ALT 9 Alkaline Phosphatase 78 C-Reactive Protein 5.80 Total Protein 7.1 Albumin 4.0 Globulin 3.1 Albumin/Globulin Ratio 1.3 Urine Color Yellow Urine Appearance Clear Urine pH 7.0 Ur Specific [place] 1.006 L Urine Protein Negative Urine Ketones Negative Urine Blood Negative Urine Nitrate Negative Urine Bilirubin Negative Urine Urobilinogen Negative Ur Leukocyte Esterase Negative Urine Glucose Negative LLE - inc c/d/i, moderate effusion, active SLR and flexion to 95 degrees actively. no erythema, some warmth. distally nvi. Assessment: 78 yo F s/p LTKA with increased pain. Readmission because she cannot return to her assisted living. Plan: Social admit - appreciate hospitalist care Recommend PT and ambulation xrays reviewed and have no abnormalities dvt negative afebrile, no leukocytosis, no plan to aspirate normal postop effusion ortho to follow. full consult note to follow
[2019-01-02] MEDS: Tiotropium CAP.INH* CAP.INH/18 MCG (USE ORDER SET !) INH SCH (08:09)
[2019-01-02] MEDS: Nicotine PATCH 7 MG/24 HR* PATCH TRANSDERM SCH (08:13)
[2019-01-02] MEDS: CMC:Varenicline (NF) 1 MG TAB PO SCH (08:14)
[2019-01-02] MEDS: PARoxetine HCL TAB* 10 MG PO SCH (08:15)
[2019-01-02] MEDS: Pantoprazole TAB * 40 MG TAB PO SCH (08:15)
[2019-01-02] MEDS: Apixaban* 2.5 MG TAB PO SCH ×2 (08:15→22:30)
[2019-01-02] MEDS: Oxybutynin TAB* 5 MG PO SCH ×3 (08:15→22:30)
[2019-01-02] MEDS ORDERED: Spiriva Inhaler DEVICE* 1 EACH DEVICE INH ONE (09:00)
[2019-01-02 09:34] LABS: ABS Basophils 0.1 10^3/ul (0-0.2); ABS Eosinophils 0.2 10^3/ul (0-0.6); ABS Lymphocytes 1.3 10^3/ul (1.0-4.8); ABS Monocytes 0.4 10^3/ul (0-0.8); Eosinophil % 3.2 %; Hematocrit 34 % (35-47); Hemoglobin 10.7 g/dL (12.0-16.0); Lymphocyte % 21.6 %; Mean Corpuscular HGB Conc 31 g/dL (31-36); Mean Corpuscular Hemoglobin 27 pg (27-31); Mean Corpuscular Volume 86 fL (80-97); Mean Platelet Volume 8.1 fL (7.4-10.4); Platelet Count 306 10^3/uL (150-450); Red Blood Count 4.01 10^6 /uL (3.70-4.87); Red Cell Distribution Width 17 % (10.5-15)
[2019-01-02 09:39] LABS: ALT 9 U/L (7-52); AST 15 U/L (13-39); Albumin 3.8 g/dL (3.2-5.2); Albumin/Globulin Ratio 1.3 (1-3); Alkaline Phosphatase 75 U/L (34-104); Anion Gap 3 mmol/L (2-11); BUN/Creatinine Ratio 32.6 (8-20); Blood Urea Nitrogen 14 mg/dL (6-24); CO2 Carbon Dioxide 37 mmol/L (22-32); CRP High Sensitivity 9.61 mg/L (<2.00); Calcium 9.2 mg/dL (8.6-10.3); Chloride 97 mmol/L (101-111); EGFR African American 172.3 (>60); EGFR Non-African American 142.4 (>60); Glucose 93 mg/dL (70-100); Magnesium 1.9 mg/dL (1.9-2.7); Phosphorus 4.3 mg/dL (2.5-5.0); Potassium 3.7 mmol/L (3.5-5.0); Sodium 137 mmol/L (135-145); Total Protein 6.8 g/dL (6.4-8.9)
[2019-01-02 09:52] LABS: % Iron Saturation 13 % (15-55); Iron 44 ug/dL (50-212); Total Iron Binding Capacity 333 mcg/dL (250-450); Transferrin 238 mg/dL (203-362)
[2019-01-02] MEDS ORDERED: Senna TAB PO PRN (09:58)
[2019-01-02] MEDS ORDERED: Magnesium Hydroxide LIQ* 30 ML UDC PO PRN (09:58)
[2019-01-02] MEDS ORDERED: Polyethylene Glycol 3350* 17 GM PACKET PO PRN (09:58)
[2019-01-02 10:14] LABS: Ferritin 37.3 ng/mL (11-307)
[2019-01-02 10:18] LABS: Folate 9.97 ng/mL (>3.99)
[2019-01-02 10:29] LABS: Erythrocyte Sed Rate 25 mm/Hr (0-29)
--- NOTE | 2019-01-02 13:48 | CONS ---
ORTHOPEDIC CONSULT NOTE: DATE OF CONSULT: 01/02/19 CHIEF COMPLAINT: Left knee pain and swelling. HISTORY OF PRESENT ILLNESS: Ms. Watson is a 78-year-old female who had left total knee arthroplasty on 12/10/18. She initially went to [facility] and then was discharged home, which is [facility]. The patient reports that as she was being wheeled out to her car to go home and was discharged from [facility], she developed 10/10 pain in the left knee. Her pain became severe and she could not walk or stand. She was brought to [facility] Emergency Room. Radiograph plain films were negative for any abnormality. Lower extremity ultrasound was negative. The patient reports her pain is already improving. She does have some swelling in the knee. She denies fevers, chills, or drainage from the incision. PAST MEDICAL HISTORY: COPD, asthma, coronary artery disease, GERD, CVA, hyperlipidemia, schizophrenia, depression. PAST SURGICAL HISTORY: Left ankle surgery, right ankle surgery, bilateral cataract excision, 12/10/18 left total knee arthroplasty. HOME MEDICATIONS: 1. Acetaminophen 650 mg p.o. q.8 hours p.r.n. 2. Alendronate 70 mg p.o. weekly. 3. Apixaban 2.5 mg p.o. b.i.d. 4. Aspirin 81 mg p.o. q.h.s. 5. Atorvastatin 40 mg p.o. daily. 6. Docusate 200 mg p.o. q.h.s. 7. Nicotine lozenge as needed. 8. Olanzapine 15 mg p.o. q.p.m. 9. Omeprazole 40 mg p.o. q.a.m. 10. Oxybutynin 5 mg p.o. t.i.d. 11. Oxycodone 5/325, 1 tablet p.o. q.4 hours p.r.n. for pain. 12. Paroxetine 30 mg p.o. q.a.m. 13. Tiotropium 1 capsule p.o. q.a.m. 14. Varenicline 1 mg p.o. daily. DRUG ALLERGIES: NONENTERIC COATED ASPIRIN causes abdominal pain. FAMILY HISTORY: Positive for prostate cancer. SOCIAL HISTORY: The patient is a resident of [facility] on the second floor. She does have tobacco use history. No alcohol or recreational drugs. Former smoker. PHYSICAL EXAM: General: The patient is a well-nourished female, in no apparent distress. Alert and oriented x3, pleasant mood and appropriate affect. Vitals: Temperature 97.9, pulse 69, blood pressure 121/52. HEENT: Atraumatic, normocephalic. Pupils are equal and reactive to light. She has her nasal oxygen in. Chest: Unlabored breathing. Left lower extremity: The patient's skin is intact. Her incision is healing well. Moderate effusion at the knee joint. Some mild warmth. No erythema. No drainage. She can actively straight-leg raise. She flexes to 90 degrees with minimal pain. Good patellofemoral tracking distally. No edema or varicosities. No hyperreflexia. Neurovascularly intact. DIAGNOSTIC STUDIES/LAB DATA: Laboratory values from 01/01/19 show white blood cells of 8.3, hematocrit of 33, platelets 321. ESR normal at 25. CRP slightly elevated at 9.6. Sodium 137, potassium 3.7, BUN and creatinine 14 and 0.43. Urine negative. Multiple x-rays of the knee showed cemented total knee arthroplasty with no periprosthetic fracture or abnormality. Doppler study is negative for DVT. ASSESSMENT AND PLAN: Ms. Watson is a 78-year-old female, now 1 month after 12/10/18 left total knee arthroplasty. Postoperative effusion at this point is normal. I do not feel this patient has an infected knee. I do not recommend aspiration. I recommend formal physical therapy. If she cannot return to [facility], then she may need discharge back to a care home facility. For now, she should have p.r.n. analgesia and aggressive physical therapy. [id number]/[facility] #: [id number] [facility] HOSPITALLorie
[2019-01-02] MEDS ORDERED: Atorvastatin* 40 MG TAB PO SCH (15:00)
--- NOTE | 2019-01-02 16:14 | PN ---
Subjective Date of Service: 01/02/19 Interval History: Pt seen and examined. Meds and labs reviewed. CC: N/A. Pt mentions she no longer has pain and has done well with PT today ROS: Denied MARTELL/dizziness, F/C, N/V, CP, SOB, increased cough, sputum production , abd pain, diarrhea, constipation, dysuria, myalgias, arthralgias, throat pain , and new skin lesions. The rest of the 14 point ROS are unremarkable. PHYSICAL EXAM: GEN APPEARANCE: Awake, not in acute distress HEENT: NC/AT, PERRLA, moist oral mucosa, (-) throat erythema NECK: Soft, supple, (-) cervical LAD, (-)JVD HEART: S1S2 WNL, RRR, No MRG CHEST: CTA, BL, GAE, No W/R/R ABD: Soft, ND/NT, NABS 4x Q EXT: No C/C/LLE cdi SKIN: Warm to touch PSYCH: No active psychosis, hallucinations, depression, SI/HI Objective Active Medications: Acetaminophen (Tylenol Tab*) 650 mg PO Q8H PRN PRN Reason: FEVER/PAIN Albuterol/Ipratropium (Duoneb (Albuterol 2.5 Mg/Ipratropium 0.5 Mg)) 1 neb INH [id number] AWAKE PRN PRN Reason: sob/wheezing Apixaban (Eliquis*) 2.5 mg PO BID [facility] Last Admin: 01/02/19 08:15 Dose: 2.5 mg Aspirin (Aspirin Ec Tab*) 81 mg PO BEDTIME [facility] Last Admin: 01/01/19 22:53 Dose: 81 mg Atorvastatin Calcium (Lipitor*) 40 mg PO 1500 [facility] Last Admin: 01/02/19 14:25 Dose: 40 mg Docusate Sodium (Colace Cap*) 100 mg PO BID [facility] Magnesium Hydroxide (Milk Of Magnesia Liq*) 30 ml PO BID [facility] Magnesium Hydroxide (Milk Of Magnesia Liq*) 30 ml PO BID PRN PRN Reason: CONSTIPATION Last Admin: 01/02/19 10:52 Dose: 30 ml Nicotine (Nicotine Patch 7 Mg/24 Hr*) 1 patch TRANSDERM DAILY [facility] Last Admin: 01/02/19 08:13 Dose: 1 patch Nicotine Polacrilex (Nicotine Lozenge*) 4 mg MT Q2H PRN PRN Reason: CRAVING Olanzapine (Zyprexa * Tab Odt) 15 mg PO QPM [facility] Oxybutynin Chloride (Ditropan Tab*) 5 mg PO TID [facility] Last Admin: 01/02/19 14:25 Dose: 5 mg Oxycodone/Acetaminophen (Percocet 5/325 Tab*) 1 tab PO Q4H PRN PRN Reason: PAIN - MODERATE Pantoprazole Sodium (Protonix Tab*) 40 mg PO QAM [facility] Last Admin: 01/02/19 08:15 Dose: 40 mg Paroxetine HCl (Paxil Tab*) 30 mg PO QAM [facility] Last Admin: 01/02/19 08:15 Dose: 30 mg Pharmacy Profile Note (Nicotine Patch Removal Note*) 1 note FOLLOW UP 2100 [facility] Polyethylene Glycol/Electrolytes (Miralax*) 17 gm PO DAILY PRN PRN Reason: CONSTIPATION Last Admin: 01/02/19 10:52 Dose: 17 gm Senna (Senokot Tab*) 1 tab PO BEDTIME PRN PRN Reason: CONSTIPATION Tiotropium [place] (Spiriva Cap.Inh*) 1 cap INH QAM [facility] Last Admin: 01/02/19 08:09 Dose: 1 cap Varenicline (Chantix (Nf)) 1 mg PO DAILY [facility]; Protocol Last Admin: 01/02/19 08:14 Dose: Not Given Vital Signs - 8 hr 01/02/19 01/02/19 08:20 11:29 Temperature 97.6 F 97.9 F Pulse Rate 56 69 Respiratory 15 15 Rate Blood Pressure 127/44 121/52 (mmHg) O2 Sat by Pulse 100 100 Oximetry Oxygen Devices in Use Now: Nasal Cannula Result Diagrams: 01/02/19 09:11 01/02/19 09:11 Microbiology and Other Data: Microbiology 01/01/19 22:30 Nasal Screen MRSA (PCR) - Final Nasal Mrsa Not Detected Assess/Plan/Problems-Billing Assessment: - Patient Problems (1) Swelling of joint of left knee Current Visit: Yes Status: Acute Code(s): M25.462 - EFFUSION, LEFT KNEE SNOMED Code(s): 723431902 Comment: -Appreciate Dr. Stanley hernandez -ESR and initial CRP WNL, although highly sensitive CRP is mildly elevated -No aspiration per Dr. Mehta at this time and current postoperative effusion is considered normal -Continue PRN pain meds (2) COPD (chronic obstructive pulmonary disease) Current Visit: No Status: Chronic Priority: Medium Code(s): J44.9 - CHRONIC OBSTRUCTIVE PULMONARY DISEASE, UNSPECIFIED SNOMED Code(s): 29632385 Comment: -Continue Spiriva (3) GERD (gastroesophageal reflux disease) Current Visit: No Status: Chronic Priority: Medium Code(s): K21.9 - GASTRO -ESOPHAGEAL REFLUX DISEASE WITHOUT ESOPHAGITIS SNOMED Code(s): 238982535 Comment: -Continue pantoprazole (4) Depression Current Visit: No Status: Chronic Priority: Medium Code(s): F32.9 - MAJOR DEPRESSIVE DISORDER, SINGLE EPISODE, UNSPECIFIED SNOMED Code(s): 37901216 Comment: -Continue current regimen (5) HLD (hyperlipidemia) Current Visit: No Status: Chronic Priority: Medium Code(s): E78.5 - HYPERLIPIDEMIA, UNSPECIFIED SNOMED Code(s): 23288471 Comment: -Continue Atorvastatin (6) Tobacco abuse Current Visit: Yes Status: Acute Code(s): Z72.0 - TOBACCO USE SNOMED Code( s): 939993799 Comment: -Advised lifestyle modifications -Continue nicotine replacement therapy (7) DVT prophylaxis Current Visit: Yes Status: Acute Code(s): Z29.9 - ENCOUNTER FOR PROPHYLACTIC MEASURES, UNSPECIFIED SNOMED Code(s): 366796374 Comment: -Continue Eliquis Status and Disposition: -D/C city planner contacted [facility] who has agreed to take her tomorrow instead -As above
[2019-01-02] MEDS ORDERED: OLANzapine TAB*ODT* 5 MG PO SCH (18:00)
[2019-01-02] MEDS ORDERED: Nicotine Patch Removal NOTE FOLLOW UP SCH (21:00)
[2019-01-02] MEDS ORDERED: Nicotine Patch Removal NOTE PATCH OFF SCH (21:00)
[2019-01-02] MEDS: Docusate CAP* 100 MG PO SCH (22:29)
[2019-01-02] MEDS: Aspirin EC TAB* 81 MG TAB.EC PO SCH (22:30)
[2019-01-02] MEDS: Magnesium Hydroxide LIQ* 30 ML UDC PO SCH (22:31)
[2019-01-03 05:50] LABS: ABS Basophils 0.1 10^3/ul (0-0.2); ABS Eosinophils 0.2 10^3/ul (0-0.6); ABS Lymphocytes 1.1 10^3/ul (1.0-4.8); ABS Monocytes 0.5 10^3/ul (0-0.8); ABS Neutrophils 3.4 10^3/ul (1.5-7.7); Hematocrit 31 % (35-47); Hemoglobin 9.7 g/dL (12.0-16.0); Lymphocyte % 21.7 %; Mean Corpuscular HGB Conc 31 g/dL (31-36); Mean Corpuscular Hemoglobin 27 pg (27-31); Mean Corpuscular Volume 86 fL (80-97); Mean Platelet Volume 8.3 fL (7.4-10.4); Platelet Count 243 10^3/uL (150-450); Red Blood Count 3.61 10^6 /uL (3.70-4.87); Red Cell Distribution Width 16 % (10.5-15); White Blood Count 5.2 10^3/uL (3.5-10.8)
[2019-01-03 06:05] LABS: BUN/Creatinine Ratio 26.5 (8-20); Calcium 8.7 mg/dL (8.6-10.3); EGFR African American 148.2 (>60); EGFR Non-African American 122.5 (>60); Potassium 4.4 mmol/L (3.5-5.0)
[2019-01-03] MEDS: Pantoprazole TAB * 40 MG TAB PO SCH (08:41)
[2019-01-03] MEDS: PARoxetine HCL TAB* 10 MG PO SCH (08:41)
[2019-01-03] MEDS: Docusate CAP* 100 MG PO SCH (08:41)
[2019-01-03] MEDS: Magnesium Hydroxide LIQ* 30 ML UDC PO SCH (08:41)
[2019-01-03] MEDS: Apixaban* 2.5 MG TAB PO SCH (08:41)
[2019-01-03] MEDS: Oxybutynin TAB* 5 MG PO SCH (08:41)
[2019-01-03] MEDS: Nicotine PATCH 7 MG/24 HR* PATCH TRANSDERM SCH (08:42)
[2019-01-03] MEDS: CMC:Varenicline (NF) 1 MG TAB PO SCH (08:42)
[2019-01-03] MEDS: Tiotropium CAP.INH* CAP.INH/18 MCG (USE ORDER SET !) INH SCH (08:48)
[2019-01-03 11:44] VITALS: BP 129/54
--- NOTE | 2019-01-06 01:35 | DS ---
CC: Dr. Valentino Correia; Dr. Mehta* DISCHARGE SUMMARY: DATE OF ADMISSION: 01/02/19 DATE OF DISCHARGE: 01/03/19 FINAL DISCHARGE DIAGNOSIS: Left knee pain, status post left knee arthroplasty. ADDITIONAL DISCHARGE DIAGNOSES: 1. Chronic obstructive pulmonary disease. 2. Depression. 3. Gastroesophageal reflux disease. 4. Hyperlipidemia. HOSPITAL COURSE: The patient presented to [facility] Emergency Room on 01/01/19 after she left her rehab that she was going through after a left total knee arthroplasty, which was done on 12/10/18. She completed her postoperative rehab, and she was sent back to [place], to her home. Upon arrival, the patient developed very sudden sharp left knee pain, which is the worse that she had since the past several weeks at the rehab. Given the severe pain, she was brought to the emergency room for further evaluation. Given the acuity of the pain, she was admitted to the medical service for observation and evaluation by Orthopedics. She was treated with ice, physical therapy, occupational therapy. The patient was seen the following day by the covering hospitalist. She was cleared by Orthopedics for discharge. However, she was kept in the hospital an additional day for further p.r.n. pain mediation. The patient was seen by me for the initial encounter on 01/03/19, the day of the discharge. I was notified by the block machine operator that the patient was ready to be picked up the same day with transport available earlier this morning on the day of discharge. Therefore, the patient was seen and evaluated by me on . She appeared in good spirit. No pain. No distress. She was ambulating. She is feels she is back to her baseline and she was cleared for discharge from the medical point of view. DISCHARGE DISPOSITION: [place]. DISCHARGE CONDITION: Stable. DISCHARGE MEDIATIONS: Continue the medications as follows: 1. Spiriva 1 cap daily. 2. Vitamin D with calcium. 3. Lipitor 40 daily. 4. Aspirin 81 daily. 5. Omeprazole 40 daily. 6. Colace 200 at bedtime. 7. Paxil 30 every morning. 8. Oxybutynin 5 t.i.d. 9. Fosamax 70 mg weekly. 10. Zyprexa 50 mg every evening. 11. Nicotine lozenges. 12. Chantix 1 mg daily. 13. Tylenol 650 every 8 hours as needed. 14. Eliquis 2.5 b.i.d. 15. Percocet 5/325 one tab every 4 hours as needed. DISCHARGE PHYSICAL EXAM: Her vital signs were, temperature 97.5, pulse 61, respiratory 15, satting 96, blood pressure 129/54. General: She is awake, alert, pleasant, ambulating using a walker. Head and Neck: Normocephalic, atraumatic, supple. Lungs: Clear to auscultation bilaterally. Cardiovascular : S1, S2. Regular rate and rhythm. Extremities: She does have left lower extremity slight knee effusion. No significant tenderness or edema. POWER SYSTEM ENGINEER: No motor, focal, or sensory deficits. INPATIENT DIAGNOSTIC STUDIES: She had multiple CBCs which were significant for her chronic baseline anemia with hemoglobin of 9.7, hematocrit 31. Chemistry and LFTs were fairly unremarkable with the exception of high bicarb at 36, 37, which was previously demonstrated in her previous chemistry. Urinalysis unremarkable. Imaging: She had knee x-ray on 01/01/19 in the emergency room, which shows status post total left knee replacement with large joint effusion. Ultrasound, 01/01/19, did not suggest any evidence of DVT. She did have some complex fluid collection in the popliteal fossa. CONSULTATION: Consultation with Orthopedics Dr. Mehta who saw and evaluated the patient and she commented that the knee effusion is expected as postoperative. Did not feel the area was infected and did not pursue aspiration. Recommended to return to [facility] as well as physical therapy. DISCHARGE RECOMMENDATION: Follow up with her primary care Dr. Valentino Correia in 1 to 2 weeks and continue to follow up as scheduled with her orthopedic care. [id number]/[facility] #: [id number] [facility]
== END 2019-01-03 11:12 | disposition home or self-care (01) ==
LOC: ED 14:40 → SSU 19:59
PROVIDERS: ADMIT Internal Medicine; ATTEND Internal Medicine
DX: M25.562 Pain in left knee (principal); Z96.651 Presence of right artificial knee joint; M25.462 Effusion, left knee; K21.9 Gastro-esophageal reflux disease without esophagitis; J44.9 Chronic obstructive pulmonary disease, unspecified; R60.9 Edema, unspecified; F32.9 Major depressive disorder, single episode, unspecified; E78.5 Hyperlipidemia, unspecified; Z79.82 Long term (current) use of aspirin; Z79.01 Long term (current) use of anticoagulants; F20.9 Schizophrenia, unspecified; Z86.73 Personal history of transient ischemic attack (TIA), and cerebral infarction without residual deficits; I25.10 Atherosclerotic heart disease of native coronary artery without angina pectoris; F17.210 Nicotine dependence, cigarettes, uncomplicated; E78.00 Pure hypercholesterolemia, unspecified
CPT/HCPCS: 36415; 80048; 80053; 81003; 82607; 82728; 82746; 83540; 83550; 83735; 83921; 84100; 85025; 85060; 85652; 86140; 86141; 87641; 94640; 99283; 99406; A9270-GY; G0378; G8978-GP-CI; G8979-GP-CH; G8987-GO-CI; G8988-GO-CI; G8989-GO-CI

== ENCOUNTER → 2019-03-12 18:58 | Emergency (ER) | payer MEDICARE, BC, OTHER ==
--- OUTSIDE RECORDS SUMMARY | 2019-03-12 19:49 | XMS REPORT | Continuity of Care Document ---
:1940 External Reference #:[id number] Author Name Blanca Whelan Care Team Providers Name Role Phone Valentino Correia MD Primary Care Physician Unavailable Payers Date Identification Numbers Payment Provider Subscriber Policy Number: [id number] Medicare Gloria Watson PayID: [id number] [address] [place] [address] Expires: 2018 Policy Number: [id number] Neo Watson PayID: [id number] [address] [place] [address] Expires: 2018 Policy Number: [id number] Medicare Gloria Watson PayID: [id number] [address] [place] [address] Expires: 2018 Policy Number: [id number] [facility] Damian Watson PayID: [id number] [address] [place] [address] Expires: 2018 Policy Number: [id number] Medicaid Gloria Watson Group Name: 1 1 [address] PayID: [id number] [place] [address] Expires: 2018 Policy Number: [id number] Neo Watson PayID: [id number] [address] [place] [address] Policy Number: [id number] Medicaid Gloria Watson Group Name: PICC Rn Documentation Care [address] PayID: [id number] [place] [address] Problems Active Problems Provider Date Localized, primary osteoarthritis Danika Mehta M.D. Onset: 07/27/2018 Family History Date Family Member(s) Observation Comments General Breast Cancer General Chronic Obstructive Pulmonary Disease (COPD) General Diabetes Social History Type Date Description Comments Sex Unknown Occupation [employer] Tobacco Use Start: Unknown Current Cigarette Smoker 1 Pack Daily Tobacco Use Start: Unknown Never Smoked Cigars Tobacco Use Start: Unknown Never Smoked A Pipe Smokeless Tobacco Never Used Smokeless Tobacco ETOH Use Denies alcohol use Tobacco Use Start: Unknown Patient is a current smoker, smokes every day Smoking Status Reviewed: 03/11/19 Patient is a current smoker, smokes every day Exercise Type/Frequency Exercises sporadically Allergies, Adverse Reactions, Alerts Active Allergies Reaction Severity Comments Date Aspirin 03/25/2013 Medications Active Medications SIG Qnty Indications Ordering Date Provider Keflex by mouth every 8 21caps Danika Mehta, 01/15/2019 500mg Capsules hours x 7 days M.DJosep Ibuprofen 1 po q6h prn 60tabs Jazmin Montoya 08/22/2013 600mg Tablets Justin Montilla Oyster Shell Unknown Calcium/D Spiriva Handihaler 1 unit inhalation Unknown daily 18mcg Capsules Eq Aspirin Adult Low 1 by mouth every Unknown Dose day 81mg Tablets Atorvastatin Calcium 1 by mouth every Unknown day 40mg Tablets Omeprazole 1 by mouth every Unknown 40mg day Capsules Genfitrisha Powder 1 Tbsp mixed c Unknown Powder liquid daily Clindamycin HCL 2 tab tid 4caps Unknown 300mg Capsules Amoxicillin 1 po bid 20tabs Unknown 875mg Tablets Colace 2 caps po qhs Unknown 100mg Capsules Calcium 600+D 1 po bid 60tabs Unknown [id number] Tablets Ditropan XL 1 po qd 90tabs Unknown 5mg Tablets ER 24HR Nexium 1 po qd 90caps Unknown 20mg Capsules Paxil one q am 90tabs Unknown 30mg Tablets Zyprexa 1 tab po daily Unknown 15mg Tablets Fosamax one tablet weekly 12tabs Unknown 70mg Tablets History Medications Tramadol HCL 1 tablet by 30tabs M17.12 Danika Mehta, 07/27/2018 - 50mg mouth every 6 M.D. 03/10/2019 Tablets hours as needed pain Medications Administered in Office Medication SIG Qnty Indications Ordering Provider Date Depomedrol 40MG Danika Mehta M.D. 07/27/2018 Injection Vital Signs Date Vital Result Comment 03/11/2019 1:37pm Height 63 inches 5'3" Heart Rate 82 /min BP Systolic 118 mmHg BP Diastolic 70 mmHg Body Temperature 98.2 F Pain Level 0 02/01/2019 11:12am Height 63 inches 5'3" Weight 108.00 lb Heart Rate 84 /min BP Systolic 144 mmHg BP Diastolic 60 mmHg BMI (Body Mass Index) 19.1 kg/m2 01/23/2019 1:11pm Height 63 inches 5'3" Weight 108.00 lb BP Systolic 124 mmHg BP Diastolic 68 mmHg Body Temperature 98.0 F BMI (Body Mass Index) 19.1 kg/m2 01/15/2019 3:08pm Height 63 inches 5'3" Weight 107.00 lb BP Systolic 121 mmHg BP Diastolic 62 mmHg Respiratory Rate 16 /min Body Temperature 98.6 F Pain Level 2 BMI (Body Mass Index) 19.0 kg/m2 12/26/2018 10:44am Height 63 inches 5'3" Weight [...] Date Facility Test Result H/L Range Note Body Fluid 01/15/2019 [facility] Body Fluid Synovial Fluid Cell Count [address] [place] [address] [phone] Body Fluid Appearance Cloudy Body Fluid Color Yellow Body Fluid Volume 35 mL Body Fluid WBC 119 /mcL N 1 Body Fluid RBC 1967 /mcL Body Fluid Neutrophils 21 % Body Fluid Lymph 13 % Body Fluid Cannon 66 % Body Fluid Total Cells Counted 100 Fluid Reviewed By MD (SEE NOTE) 2 Body Fluid C&S 01/15/2019 [facility] Body Fluid Cult SEE RESULT [address] [place] [address] [phone] Laboratory test 01/15/2019 [facility] Miscellaneous Test See Comment [address] [place] [address] [phone] Inr/Protime 11/30/2018 [facility] Inr 0.90 N 0.77- [address] [place] [address] [phone] Laboratory test 11/30/2018 [facility] Partial Thrombo 33.7 seconds N 26.0- [address] Time PTT 36.3 [place] [address] [phone] Type & Screen 11/30/2018 [facility] Patient Blood Type O Positive [address] [place] [address] [phone] Antibody Screen NEGATIVE Urinalysis Profile 11/30/2018 [facility] Urine Color Yellow [address] [place] [address] [phone] Urine Appearance Clear Urine Specific Bolt 1.009 Low 1.010-1.030 Urine pH 7.0 N 5-9 Urine Urobilinogen Negative Negative Urine Ketones Negative Negative Urine Protein Negative Negative Urine Leukocytes Negative Negative Urine Blood Negative Negative Urine Nitrite Negative Negative Urine Bilirubin Negative Negative Urine Glucose Negative Negative Urine Culture And 11/30/2018 [facility] Urine Culture SEE RESULT [address] [place] [address] [phone] Laboratory test 03/25/2013 [facility] Cytology Nongyn RUN DATE: [address] [place] [address] NOTE> [phone] 1 -- REFERENCE VALUE -- Synovial: <150/mcL Peritoneal: <500/mcL Pleural: <500/mcL Pericardial: <500/mcL 2 No evidence of malignancy or acute inflammatory response. No microorganisms are seen. Reviewed by Dr. An 3 SEE RESULT BELOW Name: GLORIA WATSON : [address]: Clyde Emery MD Acct: [id number] Unit: [id number] AGE: 78 Location: [facility] Re01/15/19 SEX: F Status: REG REF SPEC: [id number] MARIN: 01/15/19-5855 [facility] DR: Clyde Emery MD REQ: [id number] RECD: 01/15/19 STATUS: MANJEET OATES DR: Valentino Correia MD _ SOURCE: BODY FLUID SPDESC: ORDERED: BF Cult/GS, MRSA/SA SSTI COMMENTS: [id number] . Verbal to DR OLIVERA by [id number] at 1431 on 01/17/19. Results read back accurately. Procedure Result Reported Site Body Fluid Gram Stain Final 01/16/19- 32 ML 3+ Neutrophils 1+ Nucleated Cells No Organisms Seen Preparation By Cytospin Smear Body Fluid Culture Final 01/19/19- 44 ML No Growth Day 4 MRSA/S. aureus SSTI PCR Final 01/16/19- 0006 ML Organism 1 MRSA NEGATIVE Organism 2 S.AUREUS NEGATIVE * ML - Main Lab . END OF REPORT DEPARTMENT OF PATHOLOGY, [address] [place] [address] Royce An M.D. Director [facility] # [id number] 4 Test Result Flag Unit RefValue Crystal ID, Synovial Fl None seen None seen Reviewed By: Tech Test Performed by: [facility] - [address] [address] 5 PAIN IN LEFT KNEE, EFFUSION, LEFT KNEE, UNILATERAL 6 12/10 SEE RESULT BELOW Name: GLORIA WATSON : [address]: Danika Mehta MD Acct: [id number] Unit: [id number] AGE: 78 Location: [facility] Re11/30/18 SEX: F Status: REG REF SPEC: [id number] MARIN: 11/30/18-1255 [facility] DR: Danika Mehta MD REQ: [id number] RECD: 11/30/18 STATUS: MANJEET OATES DR: Valentino Correia MD _ SOURCE: URINE SPDESC: ORDERED: Urine Culture QUERIES: Urine Source: Clean Catch Procedure Result Reported Site Urine Culture Final 12/02/18- 911 ML No growth of clinically significant organisms * ML - Main Lab . END OF REPORT DEPARTMENT OF PATHOLOGY, [facility] [employer] [place], [place] [address] Royce An M.D. Director [facility] # [id number] 8 RUN DATE: 03/26/13 [facility] LAB LIVE PAGE 1 RUN TIME: [address] [facility] [employer] [place], [place] [address] Specimen Inquiry Name: GLORIA WATSON : [address]: Drew Lorenzo MD Acct: [id number] Unit: [id number] AGE: 73 Location: [facility] Re03/25/13 SEX: F Status: REG REF SPEC: [id number] MARIN: 03/25/13-1156 [facility] DR: Drew Lorenzo MD REQ: [id number] RECD: 03/25/13 STATUS: SOUT _ ORDERED: FN [...] performed at Main Lab DEPARTMENT OF PATHOLOGY, [address] [place] [address] Royce An M.D. Director [facility] Permit #[id number] Procedures Date Code Description Status 01/15/201987687 Inject/Drain Joint/Bursa Major W/O US Completed 12/10/2018 71806 TKR Total Knee Replacement Completed 12/10/2018 30248 TKR Total Knee Replacement Completed 07/27/201802735 Inject/Drain Joint/Bursa Major W/O US Completed 09/15/2014 09567 ECHO Transthorasic Realtime 2D W Doppler & Color Flow Hosp Completed 08/26/2013 15615 EEG Recording Awake & Drowsy Completed 03/25/2013 06118 Fibroptic Laryngoscopy Completed 03/25/2013 76168 Fine Needle Aspiration; W/O Imaging Guidance Completed 12/14/2012 89412 Rad Exam; Foot Comp Completed 11/14/2012 25997 FX Metatarsal Care Completed 04/13/2012 01947 EKG, Interpretation Only Completed Encounters Type Date Location Provider Dx Diagnosis Office Visit 03/11/2019 Orthopedic Danika Mehta, Z96.652 Presence of left 1:45p Services Of [facility] Anderson artificial knee joint M17.12 Unilateral primary osteoarthritis, left knee Office Visit 01/03/2019 1:40p [facility] Gt M25.562 Pain in Assoc,pc Justin Alicea left knee Hospitalists Office Visit 01/02/2019 7:56a Orthopedic Services Danika Mehta M.D. M25.562 Pain in Of C.M.AJosep left knee Z96.652 Presence of left artificial knee joint Office Visit 01/01/2019 1:39p [facility] Paty Jacobs M25.562 Pain in Assoc,pc PA left knee Hospitalists M25.462 Effusion, left knee Office Visit 12/16/2018 9:00a [facility] Lois Hutchinson, Z96.652 Presence of left DO artificial knee joint F20.9 Schizophrenia, unspecified J96.11 Chronic respiratory failure with hypoxia J44.9 Chronic obstructive pulmonary disease, unspecified F17.210 Nicotine dependence, cigarettes, uncomplicated Office Visit 12/10/2018 [facility] F20.9 Schizophrenia, 9:53a Assoc,pc Kristina, [employer] unspecified Hospitalists K21.9 Gastro-esophageal reflux disease without esophagitis N39.492 Postural (urinary) incontinence F17.200 Nicotine dependence, unspecified, uncomplicated Office Visit 10/12/2018 1:00p Orthopedic Danika Mehta M25.572 Pain in left Services Of [facility] ankle and joints of left foot 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 classified, left ankle M25.572 Pain in left [...] primary osteoarthritis, left knee Office Visit 10/17/2014 1:56p Pulmonology And Latanya 496 COPD Airway Sleep Services Of MD Gustavo Obstruction Granite Cutter Chronic Not Class Elsewhere 780.60 Fever, Unspecified Office Visit 10/17/2014 2:03p [facility] Lisa S. 482.9 Pneumonia Due To Assoc,pc Karan, N.P. Bacterial Hospitalists Infection Unspec 496 COPD Airway Obstruction Chronic Not Class Elsewhere 295.90 Schizophrenia Unspec 305.1 Tobacco Use Disorder Office Visit 10/16/2014 2:03p [facility] Emily 482.9 Pneumonia Due Assoc,pc Haleigh, [employer]PER[employer]OR To Bacterial Hospitalists Infection Unspec 496 COPD Airway Obstruction Chronic Not Class Elsewhere 295.90 Schizophrenia Unspec 305.1 Tobacco Use Disorder Office Visit 10/16/2014 1:49p Pulmonology And Latanya 496 COPD Airway Sleep Services Of MD Gustavo Obstruction Granite Cutter Chronic Not Class Elsewhere 780.2 Syncope & Collapse 780.60 Fever, Unspecified Office Visit 10/15/2014 2:02p [facility] Geovanny AJosep 482.9 Pneumonia Due To Assoc,rogelio Torres Bacterial Hospitalsai Anderson Infection Unspec 496 COPD Airway Obstruction Chronic Not Class Elsewhere 295.90 Schizophrenia Unspec 305.1 Tobacco Use Disorder Office Visit 10/14/2014 [facility] Joseluis Penn 482.9 Pneumonia Due 2:02p Assoc,rogleio VALENCIA M.D. To Bacterial Hospitalists Infection Unspec 496 COPD Airway Obstruction Chronic Not Class Elsewhere 295.90 Schizophrenia Unspec 305.1 Tobacco Use Disorder Office Visit 09/15/2014 11:[facility]a [facility] 435.9 TIA Ischemia Assoc,rogelio Arteaga M.D. Cerebral Hospitalists Transient Unspec 496 COPD Airway Obstruction Chronic Not Class Elsewhere 530.81 Esophageal Reflux 295.90 Schizophrenia Unspec Office Visit 09/15/2014 [facility] Geovanny DiaJosep Nilo, 780.2 Syncope & 11:23a Services Of [facility] Justin Collapse Office Visit 09/14/2014 [facility] Joseluis Frankenberg 435.9 TIA Ischemia 11:35a Assoc,rogelio VALENCIA M.D. Cerebral Hospitalists Transient Unspec 295.90 Schizophrenia Unspec 530.81 Esophageal Reflux 496 COPD Airway Obstruction Chronic Not Class Elsewhere Office Visit 08/22/2013 12:00p Marie Montoya 780.39 Convulsions Other Neurologic Justin Montilla Services Of [facility] Office Visit 03/25/2013 10:15a ENT Services Of Drew 784.2 Swelling In Head C.M.A. AT Justin Lorenzo & Neck Byers 785.6 Lymph Nodes Enlargement Plan of Treatment Future Appointment(s):04/19/2019 10:45 am - Danika Mehta M.D. at Orthopedic Services Of C.M.AoJsep03/11/2019 - Danika Mehta M.D.Z96.652 Presence of left artificial knee jointFollow up:Follow up: 1 jsnyuM53.12 Unilateral primary osteoarthritis, left knee
--- NOTE | 2019-03-12 20:02 | ED ---
Adult Trauma - HPI Summary HPI Summary: This patient is a 78 year old F presenting to [facility] by EMS with a chief complaint of pain in head after fall at 1730. Pt reports her right foot fell asleep, and after wiggling she thought it would be alright, however when she took a step, she fell hit nose, head, and bruised her arm. Patient denies LOC. She reports her foot does not fall asleep often. Pt is on a blood thinner, Eliquis. Pt has no PMHx of blood clots. She is on O2 at home. Per triage, the patient rates the pain 7/10 in severity. - History of Current Complaint Chief Complaint: EDFall Stated Complaint: FALL, HEAD PAIN PER EMS Time Seen by Provider: 03/12/19 19:47 Hx Obtained From: Patient Mechanism of Injury: Fall Loss of Consciousness: no loss of consciousness Onset of Pain: Immediate Pain Intensity: 7 Pain Scale Used: 0-10 Numeric Location: Head, Extremities Associated Signs & Symptoms: Positive: Other: - Pain in head, nose, and left arm. Negative: Loss of Consciousness - Additional Pertinent History Primary Care Physician: [id number] - Allergy/Home Medications Allergies/Adverse Reactions: Allergies Allergy/AdvReac Type Severity Reaction Status Date / Time aspirin AdvReac Abdominal Verified 12/10/18 12:12 Pain PMH/Surg Hx/FS Hx/Imm Hx Endocrine/Hematology History: Denies: Hx Anticoagulant Therapy, Hx Diabetes, Hx Thyroid Disease Cardiovascular History: Reports: Hx Hypercholesterolemia Denies: Hx Hypertension, Hx Pacemaker/ICD, Other Cardiovascular Problems/ Disorders Respiratory History: Reports: Hx Asthma, Hx Chronic Obstructive Pulmonary Disease (COPD), Other Respiratory Problems/Disorders - Uses Oxygen as needed during the day, and 4 liters at night nasal canula GI History: Reports: Hx Gastroesophageal Reflux Disease - omeprazole, Hx Hiatal Hernia, Other GI Disorders - Lemus's Esophagus, Diverticulosis History: Reports: Other Problems/Disorders - Urinary incontience Denies: Hx Renal Disease Musculoskeletal History: Reports: Hx Arthritis - Osteoarthritis, Hx Rheumatoid Arthritis, Hx Osteoporosis, Other Musculoskeletal History - Osteoporosis, Hx ankle fractures Sensory History: Reports: Hx Cataracts - Bilateral cataract extraction, Hx Contacts or Glasses - Glasses Denies: Hx Hearing Aid Opthamlomology History: Reports: Hx Cataracts - Bilateral cataract extraction, Hx Contacts or Glasses - Glasses Neurological History: Reports: Hx Seizures - last seizure more than 10 years ago -no current meds, Other Neuro Impairments/Disorders - Schizophrenia Denies: Hx Dementia Psychiatric History: Reports: Hx Depression, Hx Inpatient Treatment, Hx Community Mental Health Tx, Hx Schizophrenia, Other Psychiatric Issues/ Disorders - [facility] Denies: Hx Panic Disorder, Hx Substance Abuse - Surgical History Surgery Procedure, Year, and Place: Bilat ankle fractures - L 12 yrs ago; R 3 yrs ago. Bilateral cataract extraction -per pt Hx Anesthesia Reactions: No - Immunization History Date of Tetanus Vaccine: unk Immunizations Up to Date: No Infectious Disease History: No Infectious Disease History: Denies: Hx Hepatitis, Hx Human Immunodeficiency Virus (HIV), History Other Infectious Disease, Traveled Outside the [place] in Last 30 Days - Family History Known Family History: Positive: Other Family History: Bone Marrow Cancer; - Social History Occupation: Disabled Alcohol Use: None Hx Substance Use: No Substance Use Type: Reports: None Hx Tobacco Use: Yes Smoking Status (MU): Light Every Day Tobacco Smoker Type: Cigarettes Amount Used/How Often: 1 PPD for 60 years Have You Smoked in the Last Year: Yes Review of Systems Positive: Other - pos - pain in head, nose, and left arm Negative: Syncope All Other Systems Reviewed And Are Negative: Yes Physical Exam - Summary Physical Exam Summary: VITAL SIGNS: Reviewed. GENERAL: Patient is a well-developed and nourished female who is lying comfortable in the stretcher. Patient is not in any acute respiratory distress. HEAD AND FACE: No signs of trauma. No ecchymosis, hematomas or skull depressions. No sinus tenderness. EYES: PERRLA, EOMI x 2, No injected conjunctiva, no nystagmus. EARS: Hearing grossly intact. Ear canals and tympanic membranes are within normal limits. MOUTH: Oropharynx within normal limits. NECK: Supple, trachea is midline, no adenopathy, no JVD, no carotid bruit, no c- spine tenderness, neck with full ROM; neck exam is nml CHEST: Symmetric, no tenderness at palpation LUNGS: Decreased breath sounds bilaterally. No wheezing or crackles. CVS: Regular rate and rhythm, S1 and S2 present, no murmurs or gallops appreciated. ABDOMEN: Soft, non-tender. No signs of distention. No rebound no guarding, and no masses palpated. Bowel sounds are normal. EXTREMITIES: FROM in all major joints, no edema, no cyanosis or clubbing. NEURO: Alert and oriented x 3. No acute neurological deficits. Speech is normal and follows commands. SKIN: Dry and warm Triage Information Reviewed: Yes Vital Signs On Initial Exam: Initial Vitals Temp Pulse Resp BP Pulse Ox 98 F 69 16 165/77 99 03/12/19 19:21 03/12/19 19:21 03/12/19 19:21 03/12/19 19:21 03/12/19 19:21 Vital Signs Reviewed: Yes - [place] Coma Scale Best Eye Response: 4 - Spontaneous Best Motor Response: 6 - Obeys Commands Best Verbal Response: 5 - Oriented Coma Scale Total: 15 Diagnostics - Vital Signs Vital Signs Temp Pulse Resp BP Pulse Ox 03/12/19 19:21 98 F 69 16 165/77 99 - Laboratory Lab Statement: Any lab studies that have been ordered have been reviewed, and results considered in the medical decision making process. - CT Brain CT CT Interpretation Completed By: Radiologist Summary of CT Findings: Brain CT reveals, per radiologist, IMPRESSION: No acute intracranial findings. Age-related atrophy and chronic white matter. ischemic change. ED physician has reviewed this radiology report. Re-Evaluation - Re-Evaluation First Eval Re-Evaluation Time: 21:29 Comment: Discussed plan of care with pt. Adult Trauma Course/Dx - Course Course Of Treatment: This patient is a 78 year old F presenting to [facility] by EMS with a chief complaint of pain in head after fall at 1730. Pt reports her right foot fell asleep, and after wiggling she thought it would be alright, however when she took a step, she fell hit nose, head, and bruised her arm. Patient denies LOC. She reports her foot does not fall asleep often. Pt is on a blood thinner, Eliquis. Per triage, the patient rates the pain 7/10 in severity. Physical exam findings are nml except decrease breath sounds bilaterally. Brain CT reveals, per radiologist, IMPRESSION: No acute intracranial findings. Age-related atrophy and chronic white matter. ischemic change. Patient will be discharged follow up from PCP. The patient is agreeable with this plan. - Diagnoses Provider Diagnoses: Head injury Discharge - Sign-Out/Discharge Documenting (check all that apply): Patient Departure - Discharge Patient Received Moderate/Deep Sedation with Procedure: No - Discharge Plan Condition: Stable Disposition: HOME Patient Education Materials: Head Injury (ED) Referrals: Valentino Correia MD [Primary Care Provider] - 3 Days Additional Instructions: PLEASE RETURN TO THE ED IMMEDIATELY FOR WORSENING OR CONCERNING SYMPTOMS. FOLLOW UP WITH PRIMARY CARE PHYSICIAN WITHIN 3 DAYS. - Attestation Statements Document Initiated by Scribe: Yes Documenting Scribe: Leilani Miranda Provider For Whom Scribe is Documenting (Include Credential): Dr. Lisa Luque MD Scribe Attestation: Leilani Correa scribed for Dr. Lisa Luque MD on 03/12/19 at 2131. Status of Scribe Document: Ready
[2019-03-12 21:11] VITALS: BP 147/74
== END | disposition home or self-care (01) ==
LOC: ED 18:58
DX: S09.90XA Unspecified injury of head, initial encounter (principal); W19.XXXA Unspecified fall, initial encounter; Y92.9 Unspecified place or not applicable; F17.210 Nicotine dependence, cigarettes, uncomplicated; J44.9 Chronic obstructive pulmonary disease, unspecified; J45.909 Unspecified asthma, uncomplicated; K21.9 Gastro-esophageal reflux disease without esophagitis
CPT/HCPCS: 70450; 99283

== ENCOUNTER 2019-04-30 19:40 | Emergency (ER) | payer MEDICARE, BC, OTHER ==
--- NOTE | 2019-04-30 21:37 | ED ---
Back Pain - HPI Summary HPI Summary: Patient complains of lower right back pain radiating down right leg 30 minutes which resolved while waiting in the ED waiting room Patient states prior history of same pain. Patient has been evaluated for same by orthopedics Dr. Mehta with diagnosis of arthritis of the right knee. Patient denies any active pain at this time. Denies any other symptoms, pain or injury. Patient stating she just wants to go home now. - History of Current Complaint Chief Complaint: EDBackInjuryPain Stated Complaint: KNEE AND BACK PAIN PER EMS Time Seen by Provider: 04/30/19 21:27 Hx Obtained From: Patient Onset/Duration: Sudden Onset, Lasting Minutes Onset/Duration: Started Hours Ago, Resolved Timing: Intermittent Back Pain Location: Is Discrete @ Severity Initially: Moderate Severity Currently: None Pain Intensity: 0 Pain Scale Used: 0-10 Numeric Character: Dull, Aching, Throbbing Aggravating Symptom(s): Movement Alleviating Symptom(s): Rest Associated Signs And Symptoms: Positive: Negative - Allergies/Home Medications Allergies/Adverse Reactions: Allergies Allergy/AdvReac Type Severity Reaction Status Date / Time aspirin AdvReac Abdominal Verified 12/10/18 12:12 Pain Home Medications: Home Medications Varenicline (NF) [Chantix 1 MG TAB (NF)] 1 mg PO BID 04/30/19 [History Confirmed 04/30/19] PMH/Surg Hx/FS Hx/Imm Hx Endocrine/Hematology History: Denies: Hx Anticoagulant Therapy, Hx Diabetes, Hx Thyroid Disease Cardiovascular History: Reports: Hx Hypercholesterolemia Denies: Hx Hypertension, Hx Pacemaker/ICD, Other Cardiovascular Problems/ Disorders Respiratory History: Reports: Hx Asthma, Hx Chronic Obstructive Pulmonary Disease (COPD), Other Respiratory Problems/Disorders - Uses Oxygen as needed during the day, and 4 liters at night nasal canula GI History: Reports: Hx Gastroesophageal Reflux Disease - omeprazole, Hx Hiatal Hernia, Other GI Disorders - Lemus's Esophagus, Diverticulosis History: Reports: Other Problems/Disorders - Urinary incontience Denies: Hx Renal Disease Musculoskeletal History: Reports: Hx Arthritis - Osteoarthritis, Hx Rheumatoid Arthritis, Hx Osteoporosis, Other Musculoskeletal History - Osteoporosis, Hx ankle fractures Sensory History: Reports: Hx Cataracts - Bilateral cataract extraction, Hx Contacts or Glasses - Glasses Denies: Hx Hearing Aid Opthamlomology History: Reports: Hx Cataracts - Bilateral cataract extraction, Hx Contacts or Glasses - Glasses Neurological History: Reports: Hx Seizures - last seizure more than 10 years ago -no current meds, Other Neuro Impairments/Disorders - Schizophrenia Denies: Hx Dementia Psychiatric History: Reports: Hx Depression, Hx Inpatient Treatment, Hx Community Mental Health Tx, Hx Schizophrenia, Other Psychiatric Issues/ Disorders - Lives at [facility] Denies: Hx Panic Disorder, Hx Substance Abuse - Surgical History Surgery Procedure, Year, and Place: Bilat ankle fractures - L 12 yrs ago; R 3 yrs ago. Bilateral cataract extraction -per pt Hx Anesthesia Reactions: No - Immunization History Date of Tetanus Vaccine: unk Infectious Disease History: No Infectious Disease History: Denies: Hx Hepatitis, Hx Human Immunodeficiency Virus (HIV), History Other Infectious Disease, Traveled Outside the [place] in Last 30 Days - Family History Known Family History: Positive: Other Family History: Bone Marrow Cancer; - Social History Alcohol Use: None Hx Substance Use: No Substance Use Type: Reports: None Hx Tobacco Use: Yes Smoking Status (MU): Light Every Day Tobacco Smoker Type: Cigarettes Amount Used/How Often: 1 PPD for 60 years Have You Smoked in the Last Year: Yes Review of Systems Constitutional: Negative Eyes: Negative ENT: Negative Cardiovascular: Negative Respiratory: Negative Gastrointestinal: Negative Genitourinary: Negative Musculoskeletal: Other Skin: Negative Neurological: Negative Psychological: Normal All Other Systems Reviewed And Are Negative: Yes Physical Exam - Summary Physical Exam Summary: Neuro intact on bilateral lower extremities. Patient ambulatory. Moves freely without indication of pain. No pain with palpation of lower back or right knee. Full range of motion of right knee and right hip. No erythema, ecchymosis, deformity, swelling, extra warmth noted to right knee. Triage Information Reviewed: Yes Vital Signs On Initial Exam: Initial Vitals Temp Pulse Resp BP Pulse Ox 98.5 F 78 20 149/89 98 04/30/19 19:47 04/30/19 19:47 04/30/19 19:47 04/30/19 19:47 04/30/19 19:47 Vital Signs Reviewed: Yes Appearance: Positive: Well-Appearing Head/Face: Positive: Normal Head/Face Inspection Eyes: Positive: Normal Neck: Positive: Supple Respiratory/Lung Sounds: Positive: Clear to Auscultation Cardiovascular: Positive: Normal Abdomen Description: Positive: Nontender Musculoskeletal: Positive: Normal Neurological: Positive: Normal Psychiatric: Positive: Normal AVPU Assessment: Alert - Brady Coma Scale Best Eye Response: 4 - Spontaneous Best Motor Response: 6 - Obeys Commands Best Verbal Response: 5 - Oriented Coma Scale Total: 15 Procedures - Sedation Patient Received Moderate/Deep Sedation with Procedure: No Diagnostics - Vital Signs Vital Signs Temp Pulse Resp BP Pulse Ox 04/30/19 19:47 98.5 F 78 20 149/89 98 - Laboratory Lab Statement: Any lab studies that have been ordered have been reviewed, and results considered in the medical decision making process. Back Pain Course/Dx - Course Course Of Treatment: Patient complains of lower right back pain radiating down right leg 30 minutes which resolved while waiting in the ED waiting room Patient states prior history of same pain. Patient has been evaluated for same by orthopedics Dr. Mehta with diagnosis of arthritis of the right knee. Patient denies any active pain at this time. Denies any other symptoms, pain or injury. Patient stating she just wants to go home now. Vital signs within normal limits. Physical exam unremarkable. Pain resolved by time of exam. - Diagnoses Provider Diagnoses: Back pain, Knee pain Discharge ED - Sign-Out/Discharge Documenting (check all that apply): Patient Departure Patient Received Moderate/Deep Sedation with Procedure: No - Discharge Plan Condition: Stable Disposition: HOME Patient Education Materials: Acute Low Back Pain (ED), Knee Pain (ED) Referrals: Valentino Correia MD [Primary Care Provider] - Danika Mehta MD [Medical Doctor] - Additional Instructions: If you back or knee pain pain returns follow-up with orthopedics Dr. Mehta or return to the ED. - Billing Disposition and Condition Condition: STABLE Disposition: Home - Attestation Statements Provider Attestation: pt seen by midlevel provider independently, based on their assessment, it was not necessary to present the case to me but I was available for consultation. I did not form a physician-patient relationship with the patient. The chart however, has been reviewed. am signing this note strictly in an administrative capacity.
[2019-04-30 21:52] VITALS: BP 138/86
== END 2019-04-30 21:51 | disposition home or self-care (01) ==
LOC: ED 19:40
DX: M54.9 Dorsalgia, unspecified (principal); M25.569 Pain in unspecified knee; Z79.899 Other long term (current) drug therapy; E78.00 Pure hypercholesterolemia, unspecified; J44.9 Chronic obstructive pulmonary disease, unspecified; K21.9 Gastro-esophageal reflux disease without esophagitis; F17.210 Nicotine dependence, cigarettes, uncomplicated
CPT/HCPCS: 99281

== ENCOUNTER 2019-08-02 09:54 | Inpatient (IN) | payer MEDICARE, OTHER ==
--- NOTE | 2019-08-02 10:02 | ED ---
Adult Trauma - HPI Summary HPI Summary: This pt is a 79 y/o female presenting to [facility] via EMS c/o left hip pain, left knee pain, and left elbow pain s/p fall today. Pt reports she was going to the [employer] store to buy [employer] presents when she was getting out of the car and had a mechanical fall to the ground. Denies head strike or LOC. Pt reports she was unable to ambulate after this fall. She c/o left hip pain, left knee pain, left elbow pain and notes she is unable to bend left leg secondary to pain. Denies headache, neck or back pain. Pt arrives via EMS on room air but reports at home she uses 4L of oxygen. Denies taking anticoagulants. Her last tetanus shot was 4-5 months ago. Denies any PMHx, however when asked about left ankle deformity she states she was told she wasn't supposed to walk on it but did. NKDA. She admits to smoking cigarettes but denies alcohol or drug use. Pt lives in [facility] and left her medication list there. She doesn't have children but does have 2 siblings and many nieces and nephews. Medications reviewed. Allergies noted. - History of Current Complaint Stated Complaint: FALL- LEFT HIP PAIN PER EMS Hx Obtained From: Patient Mechanism of Injury: Fall Ambulatory at the Scene: No Loss of Consciousness: no loss of consciousness Restraints: None Onset/Duration: Started Minutes Ago, Still Present Onset of Pain: Immediate Current Severity: Severe Pain Intensity: 10 Pain Scale Used: 0-10 Numeric Location: Other - Left hip Aggravating Factor(s): Movement Alleviating Factor(s): Rest Associated Signs & Symptoms: Negative: Fever, Loss of Consciousness, Other: - POSITIVE: left hip pain, left knee pain, left elbow pain. NEGATIVE: headache, neck pain, back pain. - Additional Pertinent History Primary Care Physician: [id number] - Allergy/Home Medications Allergies/Adverse Reactions: Allergies Allergy/AdvReac Type Severity Reaction Status Date / Time aspirin AdvReac See Comment Verified 08/02/19 10:03 Home Medications: Home Medications Atorvastatin* [Lipitor 40 MG*] 40 mg PO DAILY 08/02/19 [History Confirmed ] Ibuprofen TAB* [Motrin TAB* 600 MG] 600 mg PO .Q4-6H PRN 08/02/19 [History Confirmed 08/02/19] OLANZapine [Zyprexa Zydis] 15 mg PO BEDTIME 08/02/19 [History Confirmed 08/02/19 ] PARoxetine HCL TAB* [Paxil TAB*] 30 mg PO DAILY 08/02/19 [History Confirmed ] Polyethylene Glycol 3350* [Miralax*] 17 gm PO DAILY 08/02/19 [History Confirmed 08/02/19] Tiotropium CAPSULE (NF) [Spiriva CAPSULE (NF)] 1 cap.inh INH DAILY 08/02/19 [ History Confirmed 08/02/19] PMH/Surg Hx/FS Hx/Imm Hx Endocrine/Hematology History: Denies: Hx Anticoagulant Therapy, Hx Diabetes, Hx Thyroid Disease Cardiovascular History: Reports: Hx Hypercholesterolemia Denies: Hx Hypertension, Hx Pacemaker/ICD, Other Cardiovascular Problems/ Disorders Respiratory History: Reports: Hx Asthma, Hx Chronic Obstructive Pulmonary Disease (COPD), Other Respiratory Problems/Disorders - Uses Oxygen as needed during the day, and 4 liters at night nasal canula GI History: Reports: Hx Gastroesophageal Reflux Disease - omeprazole, Hx Hiatal Hernia, Other GI Disorders - Lemus's Esophagus, Diverticulosis History: Reports: Other Problems/Disorders - Urinary incontience Denies: Hx Renal Disease Musculoskeletal History: Reports: Hx Arthritis - Osteoarthritis, Hx Rheumatoid Arthritis, Hx Osteoporosis, Other Musculoskeletal History - Osteoporosis, Hx ankle fractures Sensory History: Reports: Hx Cataracts - Bilateral cataract extraction, Hx Contacts or Glasses - Glasses Denies: Hx Hearing Aid Opthamlomology History: Reports: Hx Cataracts - Bilateral cataract extraction, Hx Contacts or Glasses - Glasses Neurological History: Reports: Hx Seizures - last seizure more than 10 years ago -no current meds, Other Neuro Impairments/Disorders - Schizophrenia Denies: Hx Dementia Psychiatric History: Reports: Hx Depression, Hx Inpatient Treatment, Hx Community Mental Health Tx, Hx Schizophrenia, Other Psychiatric Issues/ Disorders - Lives [facility] Denies: Hx Panic Disorder, Hx Substance Abuse - Surgical History Surgery Procedure, Year, and Place: Bilat ankle fractures - L 12 yrs ago; R 3 yrs ago. Bilateral cataract extraction -per pt Hx Anesthesia Reactions: No - Immunization History Date of Tetanus Vaccine: unk Infectious Disease History: Denies: Hx Hepatitis, Hx Human Immunodeficiency Virus (HIV), History Other Infectious Disease - Family History Known Family History: Positive: Other Family History: Bone Marrow Cancer; - Social History Alcohol Use: None Hx Substance Use: No Substance Use Type: Reports: None Hx Tobacco Use: Yes Smoking Status (MU): Light Every Day Tobacco Smoker Type: Cigarettes Amount Used/How Often: 1 PPD for 60 years Have You Smoked in the Last Year: Yes Review of Systems Negative: Fever Musculoskeletal: Other - POSITIVE: left hip pain, left knee pain, left elbow pain Negative: Other - NEGATIVE: neck pain, back pain Negative: Headache All Other Systems Reviewed And Are Negative: Yes Physical Exam - Summary Physical Exam Summary: Constitutional: Well-developed, Well-nourished, Alert, Cooperative Skin: Warm, Dry HENT: Normocephalic; No Racoons eyes; No foster's sign; No abrasion; No contusion; No hemotympanum; No maxilla facial tenderness or instability; Dentition are smooth; No dental trauma; No trismus Eyes: EOM normal, PERRL Neck: Trachea is midline. No stridor; No JVD; No step off; No posterior cervical spine tenderness Cardio: Rhythm regular, rate normal Heart sounds normal; Intact distal pulses. Radial pulses are 2+ and symmetric. Pulmonary/Chest wall: Effort normal; Breath sounds normal; Equal chest rise; No flail segment; No rib tenderness; No sternal tenderness Abd: Soft, Appearance normal. No distension; No tenderness; No palpable pulsatile mass; No Cullens sign; No Alvarez-Turners sign Musculoskeletal: Abrasion to the left elbow, with no bony tenderness, and full ROM of left elbow. Abrasion to left knee with bony tenderness. Left lateral hip tenderness, refusing to move left leg secondary to pain. Neuro: Alert, Oriented x3, Strength 5/5 all extremities. Psych: Mood and affect Normal Triage Information Reviewed: Yes Vital Signs On Initial Exam: Initial Vitals Temp Pulse Resp BP Pulse Ox 97.5 F 75 24 164/121 84 08/02/19 09:56 08/02/19 09:56 08/02/19 09:56 08/02/19 09:56 08/02/19 09:56 Vital Signs Reviewed: Yes Procedures - Sedation Patient Received Moderate/Deep Sedation with Procedure: No Diagnostics - Laboratory Result Diagrams: 08/02/19 10:37 08/02/19 10:37 Lab Statement: Any lab studies that have been ordered have been reviewed, and results considered in the medical decision making process. - Radiology Left hip XR Radiology Interpretation Completed By: Radiologist Summary of Radiographic Findings: IMPRESSION: 1. Complicated minimally impacted intertrochanteric fracture left hip. 2. Osteopenia. 3. Degenerative changes as above. Dr. Liu has reviewed this report. Left knee XR Radiology Interpretation Completed By: Radiologist Summary of Radiographic Findings: IMPRESSION: 1. Prepatellar soft tissue swelling with a large effusion. 2. Osteopenia with no displaced fracture. 3. Left total knee arthroplasty. Dr. Liu has reviewed this report. chest XR Radiology Interpretation Completed By: Radiologist Summary of Radiographic Findings: IMPRESSION: 1. Right apical and mild bibasilar opacification the setting of poor inspiration. Recommend repeat chest radiograph with improved inspiration when clinically appropriate. 2. Large hiatal hernia. Dr. Liu has reviewed this report. Left femur XR Radiology Interpretation Completed By: Radiologist Summary of Radiographic Findings: IMPRESSION: Again noted is a comminuted fracture of the proximal left femur. Dr. Liu has reviewed this report. - EKG 11:12 Cardiac Rate: NL - at 69 bpm EKG Rhythm: Sinus Rhythm Summary of EKG Findings: EKG at 11:12 shows normal sinus rhythm at a rate of 69 bpm. No STEMI. Adult Trauma Course/Dx - Course Course Of Treatment: Patient is here after a mechanical fall. Patient was found have a left hip fracture. Orthopedic surgery was called and the recommended admission to the hospital and holding eliquist. Patient was admitted to the hospitalist. - Diagnoses Provider Diagnoses: Fracture of left hip, Fall, COPD (chronic obstructive pulmonary disease) - Physician Notifications Discussed Care Of Patient With: Adalgisa Johns Time Discussed With Above Provider: 10:58 Instructed by Provider To: Other - Discussed with Dr. Johns, orthopedist, who recommends to obtain femur films, meds, and hold the Eliquis. [11:07] Discussed with Dr. Fuentes, hospitalist, who accepted pt for admission. Discharge ED - Sign-Out/Discharge Documenting (check all that apply): Patient Departure - Admit to [facility] [place] - Discharge Plan Condition: Stable Disposition: ADMITTED TO [facility] Referrals: Valentino Correia MD [Primary Care Provider] - - Billing Disposition and Condition Condition: STABLE Disposition: Admitted to [facility] - Attestation Statements Document Initiated by Scribe: Yes Documenting Scribe: Radha Kemp Provider For Whom Scribe is Documenting (Include Credential): Chivo Liu MD Scribe Attestation: I, Radha Kemp, scribed for Chivo Liu MD on 08/02/19 at 1355. Scribe Documentation Reviewed: Yes Provider Attestation: The documentation as recorded by the Radha orozco accurately reflects the service I personally performed and the decisions made by me, Chivo Liu MD Status of Scribe Document: Viewed
[2019-08-02 10:44] LABS: ABS Basophils 0.1 10^3/ul (0-0.2); ABS Eosinophils 0.1 10^3/ul (0-0.6); ABS Monocytes 0.7 10^3/ul (0-0.8); ABS Neutrophils 7.6 10^3/ul (1.5-7.7); Eosinophil % 0.6 %; Hematocrit 34 % (35-47); Hemoglobin 10.6 g/dL (12.0-16.0); Lymphocyte % 10.7 %; Mean Corpuscular HGB Conc 32 g/dL (31-36); Mean Corpuscular Hemoglobin 26 pg (27-31); Mean Corpuscular Volume 83 fL (80-97); Mean Platelet Volume 8.5 fL (7.4-10.4); Platelet Count 205 10^3/uL (150-450); Red Blood Count 4.02 10^6 /uL (3.70-4.87); Red Cell Distribution Width 15 % (10-15); White Blood Count 9.3 10^3/uL (3.5-10.8)
[2019-08-02] MEDS ORDERED: Morphine 4 MG/ML VIAL (1 ml) 4 MG/ML VIAL IV ONE (10:52)
[2019-08-02 10:57] LABS: INR 1.15 (0.82-1.09)
--- OUTSIDE RECORDS SUMMARY | 2019-08-02 11:00 | XMS REPORT | Summary of Care ---
:1940 Author Organization [facility] Address [address] [address] Care Team Providers Name Role Phone Valentino Correia Primary Care Provider Reason for Referral Refer to Department Only (Routine) Status Reason Specialty Diagnoses / Referred By Referred To Procedures Contact Contact Authorized UROLOGY / Urology Diagnoses Mixed stress and urge urinary incontinence Valentino Correia MD [address] [id number] Reason for Visit Reason Comments Constipation Patient states she has problems having BM. Urinary Incontinence Patient is incontinent of urine. Encounter Details Date Type Department Care Team Description 06/04/2019 Office Visit [facility] Valentino Correia, Mixed stress and urge urinary incontinence (Primary Dx); Medicine Acute constipation; [address] Adverse effect of drug, initial encounter; [place] [address] Tobacco Use [phone] Allergies Active Allergy Reactions Severity Noted Date Comments Aspirin 04/03/2008 documented as of this encounter (statuses as of 06/04/2019) Medications Medication Sig Dispensed Refills Start Date End Date Status Incontinence 1 Each by Does 100 Each 5 02/10/2016 Active Supply Disposable not apply route (ALWAYS DISCREET NEEDED UNDERWEAR) Does (incontinence). not apply Misc ibuprofen (MOTRIN) Take 1 Tab by 120 Tab 11 08/29/2017 Active 600 MG Oral Tab mouth EVERY SIX HOURS NEEDED for Pain (TAKE 1 TABLET BY MOUTH EVERY 6 HOURS NEEDED FOR PAIN). 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 CapIndications: Chronic constipation Varenicline Take by mouth 0 Active Tartrate 1 MG Oral TWICE DAILY. Tab Calcium TAKE ONE TABLET 180 Tab 1 01/29/2019 Active Carbonate-Vitamin BY MOUTH TWO D (OYSTER SHELL TIMES DAILY CALCIUM-VITAMIN D) BEFORE MEALS. 500-200 MG-UNIT Oral Tab Aspirin Take 1 Tab by 90 Tab 3 02/04/2019 Active (ASPIR-LOW) 81 MG mouth DAILY. Oral Tab EC alendronate Take 1 Tab by 4 Tab 3 02/15/2019 Active (FOSAMAX) 70 MG mouth EVERY 7 Oral Tab DAYS. oxybutynin Take 1 Tab by 90 Tab 5 02/15/2019 Active (DITROPAN) 5 MG mouth THREE Oral Tab TIMES DAILY. olanzapine Take 1 Tab by 30 Tab 11 02/25/2019 Active (ZYPREXA) 15 MG mouth EVERY Oral BEDTIME. TabIndications: Schizophrenia, unspecified type (HCC) tiotropium Take 1 INHL by 30 Cap 11 03/20/2019 Active (SPIRIVA inhalation HANDIHALER) 18 MCG DAILY. Inhalation Cap CHANTIX 1 MG Oral TAKE ONE TABLET 60 Tab 2 04/26/2019 Active Tab BY MOUTH TWO TIMES DAILY ELIQUIS 2.5 MG TAKE ONE TABLET 60 Tab 2 05/16/2019 Active Oral Tab BY MOUTH TWO TIMES DAILY polyethylene Take 17 g by 850 g 5 06/04/2019 Active glycol (MIRALAX) mouth DAILY. Oral Powder CHANTIX STARTING TAKE 1 Kit 0 01/29/2019 Discontinued MONTH KARTIK 0.5 MG X DIRECTED. 9 11 & 1 MG X 42 Oral Tab documented as of this encounter (statuses as of 06/04/2019) Active Problems Problem Noted Date Oxygen dependent 10/19/2018 Centrilobular emphysema 11/22/2017 History of transient ischemic attack (TIA) 09/16/2014 Overview: [facility] admission 09/12/[address] brain negative echocardiogram and carotid studies treatment aspirin 81 mg Seizure disorder 12/26/2012 Overview: [facility] emergency room 2011 [facility] emergency room 2012 Referred to [facility] 2011 never followed up Vitamin D deficiency 09/05/2012 Senile osteoporosis 04/03/2008 Diverticulosis 04/03/2008 Urinary Incontinence 04/03/2008 DEPRESSION 04/03/2008 Schizophrenia 04/03/2008 Overview: [facility] Tobacco Use 04/03/2008 GERD 04/03/2008 Lemus's esophagus 04/03/2008 Overview: Esophago-gastroduodenoscopy 07 documented as of this encounter (statuses as of 06/04/2019) Resolved Problems Problem Noted Date Resolved Date Knee pain, left 11/07/2013 10/29/2014 BMI 29.0-29.9,adult 04/05/2011 12/26/2012 COPD 04/03/2008 11/22/2017 Overview: [facility] admission 10/2014 for rml pneumonia Oxygen 3 liter nasal cannula 24 hours Lump or mass in breast 03/03/2008 09/05/2012 documented as of this encounter (statuses as of 06/04/2019) Immunizations Name Administration Dates Next Due Depo Medrol (80mg) 11/07/2013 Influenza (IM) Preservative Free 05/07/2013, 06/23/2008 Influenza (IM) W/Pres 08/12/2014 Influenza Vaccine 65 Yrs + 06/04/2019 Influenza Vaccine High Dose 07/18/2017, 06/01/2016, 05/01/2015 Influenza Vaccine Whole 06/19/2010, 06/06/2007 PNEUMOCOCCAL POLYSACCHARIDE VACCINE 06/06/2007 Pneumococcal Conjugate(13 Valent) 06/01/2016 Tetanus/Diptheria Vaccine 11/26/1996 documented as of this encounter Social History Tobacco Use Types Packs/Day Years Used Date Current Every Day Smoker Cigarettes 1 40 Smokeless Tobacco: Never Used Alcohol Use Drinks/Week oz/Week Comments No 0 Standard drinks or equivalent 0.0 Sex Assigned at Date Recorded Not on file Job Start Date Occupation Industry Not on file Not on file Not on file Travel History Travel Start Travel End No recent travel history available. documented as of this encounter Last Filed Vital Signs Vital Sign Reading Time Taken Comments Blood Pressure 132/70 06/04/2019 11:32 AM EDT Pulse 72 06/04/2019 11:32 AM EDT Temperature - - Respiratory Rate - - Oxygen Saturation - - Inhaled Oxygen Concentration - - Weight 54 kg (119 lb) 06/04/2019 11:32 AM EDT Height 152.4 cm (5') 06/04/2019 11:32 AM EDT Body Mass Index 23.24 06/04/2019 11:32 AM EDT documented in this encounter Patient Instructions Patient InstructionsValentino Correia MD - 06/04/2019 11:20 AM EDTStop oyster shell calcium Stop ditropan this can cause constipation Cut down to 4 cigarette per day and then set smoking quit date Add miralax once daily to colace for constipation For urine and bladder see specialsit here Dr Kent urology his office will call you to this up 12: 04 PM EDT documented in this encounter Progress Notes Valentino Correia MD - 06/04/2019 11:20 AM EDT PATIENT: Gloria Watson : 1940 DATE OF SERVICE: 06/04/2019 CHIEF COMPLAINT: Chief Complaint Patient presents with Constipation Patient states she has problems having BM. Urinary Incontinence Patient is incontinent of urine. Subjective HISTORY OF PRESENT ILLNESS: Gloria Watson is a 79-y.o. female. HPI Here for constipation she had one week no bowel movement and had hard stools in the past she just had one hard bowel movement yesterday denies other gastro- intestinal symptoms no bleeding she is on colace 2 per day for stool softener She denies other symptoms She notes ongoing mixed urge and stress type urinary incontinence for many years despite use of ditropan no blood no dysuria She never took varenicline She is now smoking 4 cigarette per day and wants to continue to cut down Patient Active Problem List Diagnosis Senile osteoporosis Diverticulosis Urinary Incontinence DEPRESSION Schizophrenia (HCC) Tobacco Use GERD Lemus's esophagus Vitamin D deficiency Seizure disorder (HCC) History of transient ischemic attack (TIA) Centrilobular emphysema (HCC) Oxygen dependent No family history on file. Current Outpatient Medications Medication Sig alendronate (FOSAMAX) 70 MG Oral Tab Take 1 Tab by mouth EVERY 7 DAYS. Aspirin (ASPIR-LOW) 81 MG Oral Tab EC Take 1 Tab by mouth DAILY. atorvastatin (LIPITOR) 40 MG Oral Tab TAKE ONE TABLET BY MOUTH ONCE DAILY Calcium Carbonate-Vitamin D (OYSTER SHELL CALCIUM-VITAMIN D) 500-200 MG- UNIT Oral Tab TAKE ONE TABLET BY MOUTH TWO TIMES DAILY BEFORE MEALS. CHANTIX 1 MG Oral Tab TAKE ONE TABLET BY MOUTH TWO TIMES DAILY docusate sodium (DOCQLACE) 100 MG Oral Cap Take 2 Caps by mouth EVERY BEDTIME. ELIQUIS 2.5 MG Oral Tab TAKE ONE TABLET BY MOUTH TWO TIMES DAILY ibuprofen (MOTRIN) 600 MG Oral Tab Take 1 Tab by mouth EVERY SIX HOURS NEEDED for Pain (TAKE 1 TABLET BY MOUTH EVERY 6 HOURS NEEDED FOR PAIN). Incontinence Supply Disposable (ALWAYS DISCREET UNDERWEAR) Does not apply Misc 1 Each by Doesnot apply route NEEDED (incontinence). olanzapine (ZYPREXA) 15 MG Oral Tab Take 1 Tab by mouth EVERY BEDTIME. Omeprazole 40 MG Oral CAPSULE DELAYED RELEASE TAKE ONE CAPSULE BY MOUTH ONCE DAILY oxybutynin (DITROPAN) 5 MG Oral Tab Take 1 Tab by mouth THREE TIMES DAILY. paroxetine (PAXIL) 30 MG Oral Tab TAKE ONE TABLET BY MOUTH ONCE DAILY polyethylene glycol (MIRALAX) Oral Powder Take 17 g by mouth DAILY. tiotropium (SPIRIVA HANDIHALER) 18 MCG Inhalation Cap Take 1 INHL by inhalation DAILY. Varenicline Tartrate 1 MG Oral Tab Take by mouth TWICE DAILY. No current facility-administered medications for this visit. Allergies Allergen Reactions Aspirin Social History Socioeconomic History Marital status: Single Spouse name: Not on file Number of children: Not on file Years of education: Not on file Highest education level: Not on file Occupational History Not on file Social Needs Financial resource strain: Not on file Food insecurity: Worry: Not on file Inability: Not on file Transportation needs: Medical: Not on file Non-medical: Not on file Tobacco Use Smoking status: Current Every Day Smoker Packs/day: 1.00 Years: 40.00 Pack years: 40.00 Types: Cigarettes Smokeless tobacco: Never Used Substance and Sexual Activity Alcohol use: No Alcohol/week: 0.0 standard drinks Drug use: No Sexual activity: Never Lifestyle Physical activity: Days per week: Not on file Minutes per session: Not on file Stress: Not on file Relationships Social connections: Talks on phone: Not on file Gets together: Not on file Attends orthodox service: Not on file Active member of club or organization: Not on file Attends meetings of clubs or organizations: Not on file Relationship status: Not on file Intimate partner violence: Fear of current or ex partner: Not on file Emotionally abused: Not on file Physically abused: Not on file Forced sexual activity: Not on file Other Topics Concern Back Care Not Asked Bike Helmet Not Asked Blood Transfusions Not Asked Caffeine Concern Not Asked Exercise Yes Comment: walks daily in [facility], does not have a car Hobby Hazards Not Asked International Travel Not Asked Service Not Asked Occupational Exposure Not Asked Seat Belt Not Asked Self-Exams Not Asked Sleep Concern Not Asked Special Diet No Stress Concern No Weight Concern Yes Social History Narrative Single Never lives in [employer] custodial in [facility] Works in [employer] dept at [employer] [facility] ROS no weight loss Objective PHYSICAL EXAM: VITALS: BP 132/70 | Pulse 72 | Ht 5' (1.524 m) | Wt 119 lb (54 kg) | BMI 23.24 kg/m Body mass index is 23.24 kg/m. Physical Exam The abdomen is soft without tenderness, guarding, mass, rebound or organomegaly. Bowel sounds are normal. No CVA tenderness or inguinal adenopathy noted. Rectal exam negative normal tone and hard stool palpated No fecal impaction ASSESSMENT / IMPRESSION: ICD-9-CM ICD-10-CM 1. Mixed stress and urge urinary incontinence no response to ditropan stop this urology referral 788.33 N39.46 REFER TO UROLOGY 2. Acute constipation continue colace and add miralax once daily 564.00 K59.00 3. Adverse effect of drug, initial encounter constipation due to ditropan and calcium pills stop these E947.9 [id number] 4. Tobacco Use I spent 12 minutes in direct face to face counseling with the patient regarding smoking cessation. A plan was developed with the patient to continue to cut down cigarette use over the next 4 weeks. A correction goal to set a quit date was discussed with patient. Pharmacologic and behavioral strategies for tobacco cessation were dicussed at length. (91090). 305.1 F17.200 Patient Instructions Stop oyster shell calcium Stop ditropan this can cause constipation Cut down to 4 cigarette per day and then set smoking quit date Add miralax once daily to colace for constipation For urine and bladder see specialsit here Dr Kent urology his office will call you to this up Valentino Correia MD 06/04/2019 13:33 documented in this encounter Plan of Treatment Name Type Priority Associated Diagnoses Order Schedule REFER TO UROLOGY Referral Routine Mixed stress and urge Expected: 2018, urinary incontinence Expires: 06/04/2020 Health Maintenance Due Date Last Done Comments ZOSTER IMMUNIZATION SERIES 1991 (1 of 2) FALL RISK ASSESSMENT 2006 MEDICARE ANNUAL WELLNESS 06/01/2017 06/01/2016, 06/01/2016, VISIT 02/19/2014, Additional history exists INFLUENZA VACCINE (#1) 2019 07/18/2017, 06/01/2016, 05/01/2015, Additional history exists DEPRESSION SCREENING 01/10/2020 01/09/2019 OSTEOPOROSIS SCREENING 06/08/2021 06/08/2016, 09/17/2010 HIV SCREENING Completed 06/08/2005, 07/30/2003 PNEUMOCOCCAL 65+YRS Completed 06/01/2016, 06/06/2007 HPV IMMUNIZATION SERIES Aged Out No longer eligible based on patient's age to complete this topic MENINGOCOCCAL VACCINE IMM Aged Out No longer eligible based on patient's age to complete this topic documented as of this encounter Goals Goal Patient Goal Associated Recent Patient-Stated? Author Type Problems Progress Smoking COPD No Anne, Trevor Parker RN Note: This is an individualized treatment (COPD) goal for Gloria Watson: Quit smoking immediately! Your provider has information and resources that may help you to quit. Depression screen (PHQ-9) total score < 5 Depression No Elena Rodríguez RN Note: This is an individualized treatment (depression) goal for Gloria Watson: Displayed above is your goal for a depression screening (PHQ-9) score that would indicate good control of your depression. Keep a regular sleep schedule Lifestyle No Elena Rodírguez RN Note: This is an individualized lifestyle goal for Gloria Watson: Please maintain a regular sleep schedule. This may help with some symptoms of depression. Keep immunizations current Lifestyle No Elena Rodríguez RN Note: This is an individualized lifestyle goal for Gloria Watson: Please be sure to keep up-to-date on recommended immunizations. For example, this would include a yearly influenza vaccine. Immunization status can be seen by looking at the Health Maintenance sections of your [facility], Plan of Care, and any After Visit Summaries. Take all prescribed medications as Self-management No Elena Rodríguez, DORINA directed Note: This is an individualized self-management goal for Gloria Watson: Please take all prescribed medications as directed. 1. Do not skip doses. If you cannot afford your medications, talk with your doctor. 2. Use a pill reminder system such as a pill box if needed. Your pharmacist can help you with this. 3. Contact your Pharmacy 5 days before your medication runs out. If you cannot take your medications for any reasons, talk with your doctor. 4. Please bring all of your medication bottles and inhalers (or a list of all your medications/inhalers) with you to every visit. Potential barriers to meeting all of your care plan goals will continue to be addressed on an ongoing basis. documented as of this encounter Results Not on filedocumented in this encounter Visit Diagnoses Diagnosis Mixed stress and urge urinary incontinence - Primary Mixed incontinence urge and stress (male)(female) Acute constipation Unspecified constipation Adverse effect of drug, initial encounter Tobacco Use Tobacco use disorder documented in this encounter (Home) [address], [place] (Work) [id number] documented as of this encounter"
[2019-08-02 11:12] LABS: Albumin 3.8 g/dL (3.2-5.2); Albumin/Globulin Ratio 1.4 (1-3); BUN/Creatinine Ratio 26.9 (8-20); Calcium 8.9 mg/dL (8.6-10.3); Globulin 2.7 g/dL (2-4); Potassium 3.8 mmol/L (3.5-5.0); Total Bilirubin 0.3 mg/dL (0.2-1.0); Total Protein 6.5 g/dL (6.4-8.9)
[2019-08-02] MEDS ORDERED: Albuterol 2.5 MG/3 ML NEB.SOL* (0.083%) INH PRN (13:08)
[2019-08-02] MEDS ORDERED: Acetaminophen TAB* 325 MG PO PRN (13:08)
[2019-08-02] MEDS ORDERED: Morphine INJ* 2 MG/ML 1 ML SYRINGE (TWO MG - NEW SYRINGE VERSION) IV PRN (13:08)
[2019-08-02] MEDS ORDERED: NS 0.9% 1000 ML** 1,000 ML IV SCH (13:15)
[2019-08-02 13:32] LABS: Urine Appearance Cloudy; Urine Bilirubin Negative (Negative); Urine Blood Negative (Negative); Urine Color Yellow; Urine Glucose Negative (Negative); Urine Ketones Trace (Negative); Urine Nitrite Negative (Negative); Urine Protein Negative (Negative); Urine Urobilinogen Negative (Negative)
--- NOTE | 2019-08-02 15:49 | HP ---
Amended report to enter cosigning physician. CC: Dr. Correia; Dr. Johns* HISTORY AND PHYSICAL: DATE OF ADMISSION: 08/02/19 PROVIDER: Alannah Azul NP PRIMARY CARE PROVIDER: Dr. Valentino Correia. ATTENDING PHYSICIAN WHILE IN THE HOSPITAL: Dr. Anurag Fuentes* (dictated by Alannah Azul NP) CHIEF COMPLAINT: Left hip pain. HISTORY OF PRESENT ILLNESS: Ms. Watson is a 79-year-old female with a past medical history significant for COPD, depression, acid reflux, hyperlipidemia, schizophrenia, history of CVA, and asthma, who presented to the emergency room with the complaints of left hip pain. The patient reports that she was in her normal state of health this morning. She got a ride to the [employer] store. She reports that she was getting out of the car at the [employer] store and had shut the door, her hand was on the side of the car, the car pulled away while she was still holding on the car and she fell to the ground landing on her left hip. She immediately had left hip pain after the fall. She denies any loss of consciousness. She denies any head or neck pain. Due to her left hip pain, the patient was brought to the emergency room for further evaluation. Of note, the patient is on Eliquis 2.5 mg, unclear; it appears that the patient is on Eliquis after her knee surgery in November 2018. While in the emergency room, the patient had routine lab work drawn and imaging of her hip and pelvis, which was noted that she had impacted intertrochanteric fracture of the left hip. Due to these findings, Hospital Medicine was asked to see and evaluate her for admission. PAST MEDICAL HISTORY: Significant for: 1. COPD. The patient does require 4 L of oxygen at all times. 2. Depression. 3. GERD. 4. Hyperlipidemia. 5. History of schizophrenia. 6. History of CVA. 7. Asthma. 8. Coronary artery disease. PAST SURGICAL HISTORY: 1. Left ankle and right ankle surgery. 2. Bilateral cataracts. 3. Left knee replacement. HOME MEDICATIONS: 1. Spiriva 1 inhaled daily. 2. MiraLAX 17 g p.o. daily. 3. Paxil 30 mg p.o. daily. 4. Ditropan 5 mg p.o. t.i.d. 5. Omeprazole 40 mg p.o. daily. 6. Zyprexa 15 mg p.o. at bedtime. 7. Ibuprofen 600 mg p.o. q.4 to 6 hours as needed. 8. Docusate 200 mg at bedtime. 9. Apixaban 2.5 mg p.o. b.i.d. 10. Calcium 1 tablet p.o. b.i.d. 11. Atorvastatin 40 mg p.o. daily. 12. Aspirin 81 mg p.o. daily. 13. Fosamax 70 mg p.o. weekly. ALLERGIES: FULL STRENGTH ASPIRIN causes abdominal pain. FAMILY HISTORY: Denies family history of heart disease, CVA, and diabetes. She does report a family history positive for prostate cancer. SOCIAL HISTORY: The patient is a current smoker. She smokes 1-1/2 packs per day. She denies any alcohol or illicit drug use. She is . She currently resides at [facility]. She lives in apartment. Surrogate decision maker in the event she is unable to make her own decisions is her sister Jess or brother Montrell. She is a full code. REVIEW OF SYSTEMS: She denies any fever or chills, unintended weight loss, chest pain, or edema. Denies any cough or hemoptysis, shortness of breath. No nausea vomiting, diarrhea, abdominal pain, hematuria ,dysuria. Denies any focal weakness or sensory loss. Denies any visual complaints, dysphagia, arthralgias, myalgias, rashes, lesions, open sores, psychosis or anxiety. Extremities: The patient does complain of left hip pain. She denies any neck pain. Denies any loss of consciousness and denies any head injury. PHYSICAL EXAMINATION GENERAL: At this time, Ms. Watson is alert and oriented, resting on the stretcher in the emergency room. She is in no acute distress. VITAL SIGNS: Blood pressure 134/66, heart rate 71, respirations are 22, O2 saturation is 95% on 4 L nasal cannula, temperature was 97.5. HEENT: Head is atraumatic, normocephalic. Eyes: EOMs are intact. Sclerae anicteric, not pale. Oral mucosa appeared to be moist. NECK: Supple. LUNGS: Clear to auscultation bilaterally. No wheezes, rales or rhonchi. CARDIAC: S1 and S2. Regular rate and rhythm. No murmurs, rubs, or gallops. ABDOMEN: Soft and nontender. Bowel sounds are present x4. EXTREMITIES: She has limited range of motion to her left lower extremity. Her leg is rotated inward. Pedal pulses are +2 bilaterally. She does have pain to palpation to the left hip region. NEUROLOGIC: She is awake, alert, and oriented x3. Speech is clear. Thought process is intact. There are no gross focal deficits. SKIN: Intact. DIAGNOSTIC STUDIES/LAB DATA: WBCs are 9.3, RBCs 4.02, hemoglobin 10.6, hematocrit 34, platelet count is 205, INR 1.15. Sodium 139, potassium 3.8 , chloride 98, carbon dioxide 37, anion gap of 4, BUN was 14, creatinine 0.52, glucose was 115, calcium 8.9, total bilirubin 0.30, ASTs were 14, ALTs were 10, alkaline phosphatase 55, BNP was 34. Urine is currently pending. She had a chest x-ray, radiologist's impression: Hypoinflation, right apical and mild basilar opacification in the setting of poor inspiration, recommend a repeat chest x-ray with improved inspiration when clinically appropriate, large hiatal hernia. She had a hip and pelvic x-ray, complicated minimally impacted intertrochanteric fracture of the left hip, osteopenia, and degenerative changes. She had a knee x-ray, prepatellar soft tissue swelling with a large effusion, osteopenia, with no displaced fracture. Left total knee arthroplasty. She had a femur x-ray, again noted a comminuted fracture of the proximal left femur. She had an electrocardiogram, which showed sinus rhythm at a rate of 69. No ST or T-wave changes. ASSESSMENT AND PLAN: Ms. Watson is a 79-year-old female with past medical history significant for depression, schizophrenia, history of cerebrovascular accident, history of coronary artery disease, hyperlipidemia, chronic obstructive pulmonary disease and asthma, who presented at the emergency room after a fall complaining of left hip pain, was found to have a left hip fracture. She will be admitted inpatient for: 1. Left hip fracture. Management per Orthopedics. PT/ OT per Orthopedics. Bowel regimen as per Orthopedics. She can have Tylenol as needed for mild pain , oxycodone for moderate pain and morphine as needed for severe pain. She will be placed on bowel regimen. She will be on bed rest at this time until hip is repaired. Orthopedics has been consulted and Dr. Johns will see the patient in consultation. 2. Depression and schizophrenia. The patient should continue on her Zyprexa, Paxil, as previously prescribed. 3. Hyperlipidemia. The patient should continue on atorvastatin 40 mg p.o. daily. 4. Chronic obstructive pulmonary disease. The patient should continue on Spiriva as previously prescribed as O2 via nasal cannula at 4 L. 5. History of cerebrovascular accident. She will continue on Lipitor and aspirin as previously prescribed. 6. Omeprazole. She will continue on 40 mg p.o. daily. 7. FEN. She can have a regular diet. 8. Code status. She is a full code. 9. DVT prophylaxis. I will place her on SCDs. Her Eliquis will be stopped. TIME SPENT: Time spent on this admission was 60 minutes, greater than half that time was spent at the bedside reviewing events leading thus far to her hospitalization, performing physical exam, and reviewing my plan of care. I have discussed this with my attending, Dr. Anurag Fuentes, and he is in agreement with my plan. ALANNAH AZUL, ALEX [id number]/[facility] #: [id number] [facility]
[2019-08-02] MEDS: Nicotine PATCH 21 MG/24 HR* PATCH TRANSDERM SCH (16:35)
--- NOTE | 2019-08-02 17:18 | CONSULT ---
Consult Consult: HPI: This pt is a 79 y/o female seen in her room today laying in bed. She presented to the ED with left hip pain, left knee pain, and left elbow pain s/p fall today. Pt reports she was going to the [employer] store to buy [place] presents when she was getting out of the car and had a mechanical fall to the ground. Denies head strike or LOC. Pt reports she was unable to ambulate after this fall. She states that she was unable to move the hip after the fall. Denies headache , neck or back pain. Pt arrives via EMS on room air but reports at home she uses 4L of oxygen. Denies taking anticoagulants. She admits to smoking cigarettes at a rate of 1 PPD Pt lives in [facility] She doesn't have children but does have 2 siblings and many nieces and nephews. Allergies/Adverse Reactions: Allergies Allergy/AdvReac Type Severity Reaction Status Date / Time aspirin AdvReac See Comment Verified 08/02/19 10:03 Active Medications Generic Name Dose Route Start Last Admin Trade Name Geronimo PRN Reason Stop Dose Admin Acetaminophen 650 mg 08/02/19 13:08 Tylenol Tab* PO Q6H PRN MILD PAIN or TEMP > 100.4 Albuterol 2.5 mg 08/02/19 13:08 Ventolin 2.5 Mg/3 Ml Neb.Darlene* INH [id number] AWAKE PRN sob/wheezing Atorvastatin Calcium 40 mg 08/03/19 09:00 Lipitor* PO DAILY [facility] Sodium Chloride 1,000 mls @ 75 mls/hr 08/02/19 13:15 Ns 0.9% 1000 Ml IV PER RATE [facility] Morphine Sulfate 2 mg 08/02/19 13:08 Morphine Inj (Syringe))* IV Q4H PRN PAIN - SEVERE Nicotine 1 patch 08/02/19 14:00 08/02/19 16:35 Nicotine Patch 21 Mg/24 Hr* TRANSDERM Not Given DAILY [facility] Olanzapine 15 mg 08/02/19 21:00 Zyprexa * Tab Odt PO BEDTIME [facility] Oxycodone/Acetaminophen 1 tab 08/02/19 13:08 Percocet 5/325 Tab* PO Q4H PRN PAIN - MODERATE Pantoprazole Sodium 40 mg 08/03/19 09:00 Protonix Tab* PO DAILY [facility] Paroxetine HCl 30 mg 08/03/19 09:00 Paxil Tab* PO DAILY [facility] Pharmacy Profile Note 1 note 08/03/19 06:00 Nicotine Patch Removal Note* FOLLOW UP 0600 [facility] Polyethylene Glycol/Electrolytes 17 gm 08/03/19 09:00 Miralax* PO DAILY [facility] Tiotropium [place] 2 puff 08/03/19 09:00 Spiriva Respimat 2.5 Mcg INH DAILY [facility] PMH 1.Hypercholesterolemia 2.Asthma 3.Chronic Obstructive Pulmonary Disease (COPD) 4.Gastroesophageal Reflux 5.Hiatal Hernia 6.Lemus's Esophagus 7.Diverticulosis 8.Urinary incontience 9.Osteoarthritis 10.Depression 11.Schizophrenia PSH 1.Left ankle fracture ORIF 2. Right ankle fracture ORIF 3. Bilateral cataract excision Hx Anesthesia Reactions: No Family History: Bone Marrow Cancer; Social History Alcohol Use: None Hx Substance Use: No Substance Use Type: Reports: None Hx Tobacco Use: Yes Smoking Status (MU)1 PPD for 60 years Have You Smoked in the Last Year: Yes Review of Systems Negative: Fever Musculoskeletal: Other - POSITIVE: left hip pain, left knee pain, left elbow pain Negative: Other - NEGATIVE: neck pain, back pain Negative: Headache All Other Systems Reviewed And Are Negative: Yes Physical Exam Vital Signs Temp 98 F 08/02/19 15:23 Pulse 79 08/02/19 15:23 Resp 26 08/02/19 17:01 BP 124/51 08/02/19 15:23 Pulse Ox 93 08/02/19 15:23 Intake & Output 08/01/19 08/02/19 08/02/19 18:59 06:59 18:59 Weight 118 lb Constitutional: Well-developed, Well-nourished, Alert, Cooperative Skin: Warm, Dry HENT: Normocephalic, atraumatic Eyes: EOM normal Cardio: Rhythm regular, rate normal Heart sounds normal; Intact distal pulses. Radial pulses are 2+ and symmetric. Pulmonary: Effort normal; Breath sounds normal; Equal chest rise Musculoskeletal: Left lateral hip tenderness, refusing to move left leg secondary to pain. Leg is externally rotated and shortened. She is NVI distally , calf is soft and non tender and 2+ DP pulse is palpable. Psych: Mood and affect Normal Radiology Left hip XR Radiology Interpretation Completed By: Radiologist Summary of Radiographic Findings: IMPRESSION: 1. Complicated minimally impacted intertrochanteric fracture left hip. 2. Osteopenia. 3. Degenerative changes as above. Dr. Liu has reviewed this report. Left knee XR Radiology Interpretation Completed By: Radiologist Summary of Radiographic Findings: IMPRESSION: 1. Prepatellar soft tissue swelling with a large effusion. 2. Osteopenia with no displaced fracture. 3. Left total knee arthroplasty. Dr. Liu has reviewed this report. chest XR Radiology Interpretation Completed By: Radiologist Summary of Radiographic Findings: IMPRESSION: 1. Right apical and mild bibasilar opacification the setting of poor inspiration. Recommend repeat chest radiograph with improved inspiration when clinically appropriate. 2. Large hiatal hernia. Dr. Liu has reviewed this report. Left femur XR Radiology Interpretation Completed By: Radiologist Summary of Radiographic Findings: IMPRESSION: Again noted is a comminuted fracture of the proximal left femur. Dr. Liu has reviewed this report. Assessment: 1. Intertrochanteric left hip fracture Plan: 1. Medical optimization per hospitalists team 2. To the OR on Monday should the pt be medically optimized for a left intramedullary nail. 3. We will hold her eliquis at this point 4. NPO after midnight on monday.
[2019-08-02] MEDS: OLANzapine TAB*ODT* 5 MG PO SCH (20:32)
[2019-08-02] MEDS: oxyCODONE/Acetamin 5/325 MG* TAB PO PRN (20:33)
[2019-08-03] MEDS: Nicotine Patch Removal NOTE FOLLOW UP SCH (05:19)
[2019-08-03 05:34] LABS: ABS Basophils 0.1 10^3/ul (0-0.2); ABS Eosinophils 0.1 10^3/ul (0-0.6); ABS Lymphocytes 0.9 10^3/ul (1.0-4.8); ABS Monocytes 0.8 10^3/ul (0-0.8); ABS Neutrophils 4.8 10^3/ul (1.5-7.7); Eosinophil % 0.9 %; Hematocrit 28 % (35-47); Lymphocyte % 13.9 %; Mean Corpuscular HGB Conc 32 g/dL (31-36); Mean Corpuscular Hemoglobin 26 pg (27-31); Mean Corpuscular Volume 82 fL (80-97); Mean Platelet Volume 8.2 fL (7.4-10.4); Platelet Count 157 10^3/uL (150-450); Red Blood Count 3.44 10^6 /uL (3.70-4.87); Red Cell Distribution Width 15 % (10-15); White Blood Count 6.7 10^3/uL (3.5-10.8)
[2019-08-03 05:38] LABS: INR 1.09 (0.82-1.09)
[2019-08-03 05:50] LABS: Blood Urea Nitrogen 11 mg/dL (6-24); CO2 Carbon Dioxide 38 mmol/L (22-32); Calcium 8.1 mg/dL (8.6-10.3); Chloride 102 mmol/L (101-111); EGFR African American 167.3 (>60); EGFR Non-African American 138.3 (>60); Glucose 97 mg/dL (70-100); Potassium 3.9 mmol/L (3.5-5.0); Sodium 140 mmol/L (135-145)
--- NOTE | 2019-08-03 08:48 | PN ---
Progress Note - Progress Note Date of Service: 08/03/19 Note: Pt seen and examined. S/p GLF with left IT hip fracture. Pt with extensive comorbidities requiring optimization and on 4 L of O2 for COPD. Continues to smoke about 1 and 1/2 PPD. Pt had been on eliquis BID possibly for dvt ppx from total knee that was not stopped versus stroke risk. Therefore cannot safely have spinal until 72 hours post dose. Temp Pulse Resp BP Pulse Ox 98.9 F 75 16 134/49 93 08/03/19 07:47 08/03/19 07:47 08/03/19 07:47 08/03/19 07:47 08/03/19 07:47 NAD. AAOx3. pleasant. on O2. eating breakfast. LLE: shortened and externally rotated. SILT grossly distally with brisk cap refill. warm and well perfused xrays: Let hip IT hip fracture, stable total knee Laboratory Results - last 24 hr 08/02/19 08/02/19 08/02/19 10:37 10:37 10:37 WBC 9.3 RBC 4.02 Hgb 10.6 L Hct 34 L MCV 83 MCH 26 L MCHC 32 RDW 15 Plt Count 205 MPV 8.5 Neut % (Auto) 80.9 Lymph % (Auto) 10.7 Person % (Auto) 7.2 Eos % (Auto) 0.6 Baso % (Auto) 0.6 Absolute Neuts (auto) 7.6 Absolute Lymphs (auto) 1.0 Absolute Monos (auto) 0.7 Absolute Eos (auto) 0.1 Absolute Basos (auto) 0.1 Absolute Nucleated RBC 0.0 Nucleated RBC % 0.0 INR (Anticoag Therapy) 1.15 H Sodium 139 Potassium 3.8 Chloride 98 L Carbon Dioxide 37 H Anion Gap 4 BUN 14 Creatinine 0.52 Est GFR ( Amer) 138.0 Est GFR (Non-Af Amer) 114.0 BUN/Creatinine Ratio 26.9 H Glucose 115 H Calcium 8.9 Total Bilirubin 0.30 AST 14 ALT 10 Alkaline Phosphatase 55 B-Natriuretic Peptide Total Protein 6.5 Albumin 3.8 Globulin 2.7 Albumin/Globulin Ratio 1.4 Urine Color Urine Appearance Urine pH Ur Specific [place] Urine Protein Urine Ketones Urine Blood Urine Nitrate Urine Bilirubin Urine Urobilinogen Ur Leukocyte Esterase Urine Glucose 08/02/19 08/02/1919 10:37 12:43 05:20 WBC 6.7 RBC 3.44 L Hgb 9.0 L Hct 28 L MCV 82 MCH 26 L MCHC 32 RDW 15 Plt Count 157 MPV 8.2 Neut % (Auto) 72.7 Lymph % (Auto) 13.9 Person % (Auto) 11.7 Eos % (Auto) 0.9 Baso % (Auto) 0.8 Absolute Neuts (auto) 4.8 Absolute Lymphs (auto) 0.9 L Absolute Monos (auto) 0.8 Absolute Eos (auto) 0.1 Absolute Basos (auto) 0.1 Absolute Nucleated RBC 0.0 Nucleated RBC % 0.0 INR (Anticoag Therapy) Sodium Potassium Chloride Carbon Dioxide Anion Gap BUN Creatinine Est GFR ( Amer) Est GFR (Non-Af Amer) BUN/Creatinine Ratio Glucose Calcium Total Bilirubin AST ALT Alkaline Phosphatase B-Natriuretic Peptide 34 Total Protein Albumin Globulin Albumin/Globulin Ratio Urine Color Yellow Urine Appearance Cloudy Urine pH 7.0 Ur Specific [place] 1.010 Urine Protein Negative Urine Ketones Trace A Urine Blood Negative Urine Nitrate Negative Urine Bilirubin Negative Urine Urobilinogen Negative Ur Leukocyte Esterase Negative Urine Glucose Negative 08/03/19 08/03/19 05:20 05:20 WBC RBC Hgb Hct MCV MCH MCHC RDW Plt Count MPV Neut % (Auto) Lymph % (Auto) Person % (Auto) Eos % (Auto) Baso % (Auto) Absolute Neuts (auto) Absolute Lymphs (auto) Absolute Monos (auto) Absolute Eos (auto) Absolute Basos (auto) Absolute Nucleated RBC Nucleated RBC % INR (Anticoag Therapy) 1.09 Sodium 140 Potassium 3.9 Chloride 102 Carbon Dioxide 38 H Anion Gap BUN 11 Creatinine 0.44 L Est GFR ( Amer) 167.3 Est GFR (Non-Af Amer) 138.3 BUN/Creatinine Ratio 25.0 H Glucose 97 Calcium 8.1 L Total Bilirubin AST ALT Alkaline Phosphatase B-Natriuretic Peptide Total Protein Albumin Globulin Albumin/Globulin Ratio Urine Color Urine Appearance Urine pH Ur Specific [place] Urine Protein Urine Ketones Urine Blood Urine Nitrate Urine Bilirubin Urine Urobilinogen Ur Leukocyte Esterase Urine Glucose A/P 79 yo F s/p GLD with L IT hip fx. eliquis stopped bed rest with q2 turns ancef loss prevention supervisor to OR NPO after midnight monday To OR Monday will discuss with colleagues.
[2019-08-03] MEDS: Nicotine PATCH 21 MG/24 HR* PATCH TRANSDERM SCH (09:07)
[2019-08-03] MEDS: oxyCODONE/Acetamin 5/325 MG* TAB PO PRN (09:15)
[2019-08-03] MEDS: Polyethylene Glycol 3350* 17 GM PACKET PO SCH (09:15)
[2019-08-03] MEDS: PARoxetine HCL TAB* 10 MG PO SCH (09:15)
[2019-08-03] MEDS: Pantoprazole TAB * 40 MG TAB PO SCH (09:16)
[2019-08-03] MEDS: Atorvastatin* 40 MG TAB PO SCH (09:16)
--- NOTE | 2019-08-03 09:53 | PN ---
Subjective Date of Service: 08/03/19 Interval History: Pt feels well, c/o left knee pain. Said when slipped on ice when getting out of car Objective Active Medications: Acetaminophen (Tylenol Tab*) 650 mg PO Q6H PRN PRN Reason: MILD PAIN or TEMP > 100.4 Albuterol (Ventolin 2.5 Mg/3 Ml Neb.Darlene*) 2.5 mg INH [id number] AWAKE PRN PRN Reason: sob/wheezing Atorvastatin Calcium (Lipitor*) 40 mg PO DAILY [facility] Last Admin: 08/03/19 09:16 Dose: 40 mg Sodium Chloride (Ns 0.9% 1000 Ml) 1,000 mls @ 75 mls/hr IV PER RATE [facility] Last Admin: 08/03/19 05:06 Dose: 75 mls/hr Morphine Sulfate (Morphine Inj (Syringe))*) 2 mg IV Q4H PRN PRN Reason: PAIN - SEVERE Nicotine (Nicotine Patch 21 Mg/24 Hr*) 1 patch TRANSDERM DAILY [facility] Last Admin: 08/03/19 09:07 Dose: Not Given Olanzapine (Zyprexa * Tab Odt) 15 mg PO BEDTIME [facility] Last Admin: 08/02/19 20:32 Dose: 15 mg Oxycodone/Acetaminophen (Percocet 5/325 Tab*) 1 tab PO Q4H PRN PRN Reason: PAIN - MODERATE Last Admin: 08/03/19 09:15 Dose: 1 tab Pantoprazole Sodium (Protonix Tab*) 40 mg PO DAILY [facility] Last Admin: 08/03/19 09:16 Dose: 40 mg Paroxetine HCl (Paxil Tab*) 30 mg PO DAILY [facility] Last Admin: 08/03/19 09:15 Dose: 30 mg Pharmacy Profile Note (Nicotine Patch Removal Note*) 1 note FOLLOW UP 0600 [facility] Last Admin: 08/03/19 05:19 Dose: Not Given Polyethylene Glycol/Electrolytes (Miralax*) 17 gm PO DAILY [facility] Last Admin: 08/03/19 09:15 Dose: 17 gm Tiotropium [place] (Spiriva Respimat 2.5 Mcg) 2 puff INH DAILY [facility] Vital Signs - 8 hr 08/03/19 08/03/19 08/03/19 02:30 03:25 07:47 Temperature 98.4 F 98.9 F Pulse Rate 74 75 Respiratory 16 18 16 Rate Blood Pressure 113/42 134/49 (mmHg) O2 Sat by Pulse 95 93 Oximetry 08/03/19 09:15 Temperature Pulse Rate Respiratory 16 Rate Blood Pressure (mmHg) O2 Sat by Pulse Oximetry Oxygen Devices in Use Now: Nasal Cannula Appearance: 79 yo F in nAD, AAOx3 Eyes: No Scleral Icterus, PERRLA Ears/Nose/Mouth/Throat: NL Teeth, Lips, Gums, Mucous Membranes Moist Neck: NL Appearance and Movements; NL JVP, Trachea Midline Respiratory: Symmetrical Chest Expansion and Respiratory Effort, Clear to Auscultation Cardiovascular: NL Sounds; No Murmurs; No JVD, RRR Abdominal: NL Sounds; No Tenderness; No Distention Lymphatic: No Cervical Adenopathy Extremities: No Clubbing, Cyanosis, - - left knee effusion noted, left hip externally rotated Skin: No Nodules or Sclerosis, - - small abrasion left elbow Neurological: Alert and Oriented x 3, NL Muscle Strength and Tone Result Diagrams: 08/03/19 05:20 08/03/19 05:20 Assess/Plan/Problems-Billing Assessment: 79 yo f with h/o schizophrenia, COPD on 02 at 4L, CVA, recent knee replacement (11/30), uses a walker, s/p mechanical fall with left hip fx - Patient Problems (1) Closed left hip fracture Comment: for OR on Monday Her RCRI score is 1 (due to h/o CVA), giving her 6% risk of complications. Her ACS preop risk score) calculated for hip replacement surgery shows 4.8% of serious complications. pt's EKG is unchanged. Her exercise capacity is limited due to use of walker and chronic 02 use at 4l. She is optimized for the anticipated procedure and accepts the risk. CXR shows opacities but suboptimal and clincally pt has no resp problems. Will get another CXR (2) Swelling of joint of left knee Comment: -with effusion after a fall -s/p L TKR 11/30 -ortho following (3) COPD (chronic obstructive pulmonary disease) Comment: -not in exacerbation -Continue Spiriva -at baseline 4l 02 (4) GERD (gastroesophageal reflux disease) Comment: -Continue pantoprazole (5) Schizophrenia Comment: cont olanzepine (6) Anemia Comment: normocytic, Hb 9-10 at baseline for the past year. will get iron studies (7) DVT prophylaxis Comment: HSQ Not sure why pt was on eliquis at home. She had been on no atnicoagulants before her knee surgery in 11/2018, after that she was started on Eliquis post op and it was continued till her current admission. Pt is not aware of being on anticoagulant. (8) Thyroid nodule Comment: 4.1 cm thyroid nodule shayne get US Status and Disposition: inpatient
[2019-08-03 10:20] LABS: Total Iron Binding Capacity 346 mcg/dL (250-450); Transferrin 247 mg/dL (203-362)
[2019-08-03 10:22] LABS: % Iron Saturation 6 % (15-55); Iron < 20 ug/dL (50-212)
[2019-08-03 10:46] LABS: Folate 11.52 ng/mL (>3.99)
[2019-08-03 11:13] LABS: Hematocrit 29 % (35-47); Hemoglobin 9.1 g/dL (12.0-16.0); Mean Corpuscular HGB Conc 32 g/dL (31-36); Mean Corpuscular Hemoglobin 26 pg (27-31); Mean Corpuscular Volume 83 fL (80-97); Mean Platelet Volume 8.6 fL (7.4-10.4); Platelet Count 148 10^3/uL (150-450); Red Blood Count 3.47 10^6 /uL (3.70-4.87); Red Cell Distribution Width 15 % (10-15); White Blood Count 6.5 10^3/uL (3.5-10.8)
[2019-08-03 12:16] LABS: ABS Eosinophils 0.1 10^3/ul (0-0.6); ABS Lymphocytes 0.8 10^3/ul (1.0-4.8); ABS Monocytes 0.5 10^3/ul (0-0.8); ABS Neutrophils 5.1 10^3/ul (1.5-7.7); Eosinophil % 0.8 %; Lymphocyte % 12.3 %; Nucleated Red Blood Cells % 0.1
[2019-08-03] MEDS: SPIRIVA Respimat* (tiotropium) 2.5 mcg/inh Inhaler INH SCH (12:24)
[2019-08-03] MEDS: Heparin VIAL(*) 5000 UNITS/ML VIAL (FIVE THOUSAND) SUBCUT SCH ×2 (14:26→22:36)
[2019-08-03] MEDS: OLANzapine TAB*ODT* 5 MG PO SCH (22:37)
[2019-08-04] MEDS: Heparin VIAL(*) 5000 UNITS/ML VIAL (FIVE THOUSAND) SUBCUT SCH ×3 (05:23→22:31)
[2019-08-04] MEDS: Nicotine Patch Removal NOTE FOLLOW UP SCH (05:30)
[2019-08-04] MEDS ORDERED: Ferric Gluconate IV* 25 MG in NS 0.9% 50 ML* 50 ML IVPB ONE (08:00)
--- NOTE | 2019-08-04 08:09 | PN ---
Subjective Date of Service: 08/04/19 Interval History: Pt feels well, denies SOB, or CP Objective Active Medications: Acetaminophen (Tylenol Tab*) 650 mg PO Q6H PRN PRN Reason: MILD PAIN or TEMP > 100.4 Albuterol (Ventolin 2.5 Mg/3 Ml Neb.Darlene*) 2.5 mg INH [id number] AWAKE PRN PRN Reason: sob/wheezing Atorvastatin Calcium (Lipitor*) 40 mg PO DAILY [facility] Last Admin: 08/03/19 09:16 Dose: 40 mg Heparin Sodium (Porcine) (Heparin Vial(*)) 5,000 units SUBCUT Q8HR [facility] Last Admin: 08/04/19 05:23 Dose: 5,000 units Ferric Sodium Gluconate (Complex 25 mg/ Sodium Chloride) 52 mls @ 52 mls/hr IVPB ONCE ONE Stop: 08/04/19 08:59 Ferric Sodium Gluconate Complex 100 mg/ Sodium Chloride 108 mls @ 0 mls/hr IVPB ONCE ONE Stop: 08/04/19 09:01 Morphine Sulfate (Morphine Inj (Syringe))*) 2 mg IV Q4H PRN PRN Reason: PAIN - SEVERE Nicotine (Nicotine Patch 21 Mg/24 Hr*) 1 patch TRANSDERM DAILY [facility] Last Admin: 08/03/19 09:07 Dose: Not Given Olanzapine (Zyprexa * Tab Odt) 15 mg PO BEDTIME [facility] Last Admin: 08/03/19 22:37 Dose: 15 mg Oxycodone/Acetaminophen (Percocet 5/325 Tab*) 1 tab PO Q4H PRN PRN Reason: PAIN - MODERATE Last Admin: 08/03/19 09:15 Dose: 1 tab Pantoprazole Sodium (Protonix Tab*) 40 mg PO DAILY [facility] Last Admin: 08/03/19 09:16 Dose: 40 mg Paroxetine HCl (Paxil Tab*) 30 mg PO DAILY [facility] Last Admin: 08/03/19 09:15 Dose: 30 mg Pharmacy Profile Note (Nicotine Patch Removal Note*) 1 note FOLLOW UP 0600 [facility] Last Admin: 08/04/19 05:30 Dose: Not Given Polyethylene Glycol/Electrolytes (Miralax*) 17 gm PO DAILY [facility] Last Admin: 08/03/19 09:15 Dose: 17 gm Tiotropium [place] (Spiriva Respimat 2.5 Mcg) 2 puff INH DAILY [facility] Last Admin: 08/03/19 12:24 Dose: 2 puff Vital Signs - 8 hr 08/04/19 08/04/19 03:51 07:28 Temperature 98.5 F 98.9 F Pulse Rate 84 75 Respiratory 18 17 Rate Blood Pressure 148/50 129/46 (mmHg) O2 Sat by Pulse 90 95 Oximetry Oxygen Devices in Use Now: Nasal Cannula Appearance: 79 yo F in nAD, AOx3 Eyes: No Scleral Icterus, PERRLA Ears/Nose/Mouth/Throat: NL Teeth, Lips, Gums, Mucous Membranes Moist Neck: NL Appearance and Movements; NL JVP, Trachea Midline Respiratory: Symmetrical Chest Expansion and Respiratory Effort, - - faint crackles at b/l bases Cardiovascular: NL Sounds; No Murmurs; No JVD, RRR Abdominal: NL Sounds; No Tenderness; No Distention Lymphatic: No Cervical Adenopathy Extremities: No Edema, No Clubbing, Cyanosis, - - left hip externally rotated Neurological: Alert and Oriented x 3, NL Muscle Strength and Tone Result Diagrams: 08/03/19 10:41 08/03/19 05:20 Assess/Plan/Problems-Billing Assessment: 79 yo f with h/o schizophrenia, COPD on 02 at 4L, CVA, recent knee replacement (11/30), uses a walker, s/p mechanical fall with left hip fx - Patient Problems (1) Closed left hip fracture Comment: for OR on Monday Her RCRI score is 1 (due to h/o CVA), giving her 6% risk of complications. Her ACS preop risk score) calculated for hip replacement surgery shows 4.8% of serious complications. pt's EKG is unchanged. Her exercise capacity is limited due to use of walker and chronic 02 use at 4l. She is optimized for the anticipated procedure and accepts the risk. CXR at admission showed opacities but was suboptimal and clincally pt had no resp problems, repeat CXR WNL on 08/03/19 (2) Swelling of joint of left knee Comment: -with effusion after a fall -s/p L TKR 11/30 -ortho following (3) COPD (chronic obstructive pulmonary disease) Comment: -not in exacerbation -Continue Spiriva -at baseline 4l 02 (4) GERD (gastroesophageal reflux disease) Comment: -Continue pantoprazole (5) Schizophrenia Comment: cont olanzepine (6) Anemia Comment: normocytic, Hb 9-10 at baseline for the past year. Iron studies show Iron deff, will infuse IV iron today (7) DVT prophylaxis Comment: HSQ Not sure why pt was on eliquis at home. She had been on no anticoagulants before her knee surgery in 11/2018, after that she was started on Eliquis post op and it was continued till her current admission. Pt is not aware of being on anticoagulant. (8) Thyroid nodule Comment: 4.1 cm thyroid nodule thyroid US ordered Status and Disposition: inpatient
[2019-08-04] MEDS: Atorvastatin* 40 MG TAB PO SCH (08:36)
[2019-08-04] MEDS: PARoxetine HCL TAB* 10 MG PO SCH (08:36)
[2019-08-04] MEDS: Polyethylene Glycol 3350* 17 GM PACKET PO SCH (08:36)
[2019-08-04] MEDS: Pantoprazole TAB * 40 MG TAB PO SCH (08:37)
[2019-08-04] MEDS: Nicotine PATCH 21 MG/24 HR* PATCH TRANSDERM SCH (08:37)
[2019-08-04] MEDS: SPIRIVA Respimat* (tiotropium) 2.5 mcg/inh Inhaler INH SCH (08:38)
[2019-08-04] MEDS ORDERED: Ferric Gluconate IV* 100 MG in NS 0.9% 100 ML* 100 ML IVPB ONE (09:00)
--- NOTE | 2019-08-04 10:49 | PN ---
Progress Note - Progress Note Date of Service: 08/04/19 SOAP: Subjective: Pt seen lying in bed this am. She is doing well, pain is well controlled. She denies any chest pain, sob, nausea, vomiting. Objective: NAD. AAOx3. pleasant LLE: shortened and externally rotated. SILT grossly distally with brisk cap refill. warm and well perfused Vital Signs Temp 98.9 F 08/04/19 07:28 Pulse 75 08/04/19 07:28 Resp 17 08/04/19 08:54 BP 129/46 08/04/19 07:28 Pulse Ox 95 08/04/19 07:28 Intake & Output 08/03/19 08/04/19 08/04/19 18:59 06:59 18:59 Intake Total 724 52 Output Total 450 450 Balance 274 -450 52 Intake: IV Fluids 274 NS (0.9%) 274 IVPB 52 Ferric Gluconate 52 Oral 450 Output: [place] 450 450 xrays: Let hip IT hip fracture, stable total knee Assessment: A/P 79 yo F s/p GLD with L IT hip fx. Plan: galileo stopped bed rest with q2 turns ancef occupational analyst to OR NPO after midnight To OR Monday.
[2019-08-04] MEDS: OLANzapine TAB*ODT* 5 MG PO SCH (22:29)
[2019-08-05] MEDS: NS 0.9% 1000 ML** 1,000 ML IV SCH ×2 (04:48→19:35)
[2019-08-05 04:56] LABS: Hematocrit 28 % (35-47); Mean Corpuscular HGB Conc 32 g/dL (31-36); Mean Corpuscular Hemoglobin 26 pg (27-31); Mean Corpuscular Volume 82 fL (80-97); Mean Platelet Volume 8.6 fL (7.4-10.4); Platelet Count 149 10^3/uL (150-450); Red Blood Count 3.46 10^6 /uL (3.70-4.87); Red Cell Distribution Width 15 % (10-15); White Blood Count 7.9 10^3/uL (3.5-10.8)
[2019-08-05 05:12] LABS: BUN/Creatinine Ratio 23.7 (8-20); Calcium 8.4 mg/dL (8.6-10.3); EGFR African American 198.2 (>60); EGFR Non-African American 163.8 (>60); Potassium 3.9 mmol/L (3.5-5.0)
[2019-08-05] MEDS: Nicotine Patch Removal NOTE FOLLOW UP SCH (05:44)
[2019-08-05] MEDS: Heparin VIAL(*) 5000 UNITS/ML VIAL (FIVE THOUSAND) SUBCUT SCH ×2 (07:10→13:23)
[2019-08-05] MEDS: PARoxetine HCL TAB* 10 MG PO SCH (07:51)
[2019-08-05] MEDS: Nicotine PATCH 21 MG/24 HR* PATCH TRANSDERM SCH (07:51)
[2019-08-05] MEDS: Pantoprazole TAB * 40 MG TAB PO SCH (07:51)
[2019-08-05] MEDS: Atorvastatin* 40 MG TAB PO SCH (07:51)
[2019-08-05] MEDS: Polyethylene Glycol 3350* 17 GM PACKET PO SCH (07:52)
[2019-08-05] MEDS: SPIRIVA Respimat* (tiotropium) 2.5 mcg/inh Inhaler INH SCH (08:38)
--- NOTE | 2019-08-05 10:31 | PN ---
Subjective Date of Service: 08/05/19 Interval History: Pt feels well, NPO for surgery today Objective Active Medications: Acetaminophen (Tylenol Tab*) 650 mg PO Q6H PRN PRN Reason: MILD PAIN or TEMP > 100.4 Albuterol (Ventolin 2.5 Mg/3 Ml Neb.Darlene*) 2.5 mg INH [id number] AWAKE PRN PRN Reason: sob/wheezing Atorvastatin Calcium (Lipitor*) 40 mg PO DAILY [facility] Last Admin: 08/05/19 07:51 Dose: Not Given Heparin Sodium (Porcine) (Heparin Vial(*)) 5,000 units SUBCUT Q8HR [facility] Last Admin: 08/05/19 07:10 Dose: Not Given Sodium Chloride (Ns 0.9% 1000 Ml) 1,000 mls @ 75 mls/hr IV PER RATE [facility] Last Admin: 08/05/19 04:48 Dose: 75 mls/hr Morphine Sulfate (Morphine Inj (Syringe))*) 2 mg IV Q4H PRN PRN Reason: PAIN - SEVERE Nicotine (Nicotine Patch 21 Mg/24 Hr*) 1 patch TRANSDERM DAILY [facility] Last Admin: 08/05/19 07:51 Dose: Not Given Olanzapine (Zyprexa * Tab Odt) 15 mg PO BEDTIME [facility] Last Admin: 08/04/19 22:29 Dose: 15 mg Oxycodone/Acetaminophen (Percocet 5/325 Tab*) 1 tab PO Q4H PRN PRN Reason: PAIN - MODERATE Last Admin: 08/03/19 09:15 Dose: 1 tab Pantoprazole Sodium (Protonix Tab*) 40 mg PO DAILY [facility] Last Admin: 08/05/19 07:51 Dose: Not Given Paroxetine HCl (Paxil Tab*) 30 mg PO DAILY [facility] Last Admin: 08/05/19 07:51 Dose: Not Given Pharmacy Profile Note (Nicotine Patch Removal Note*) 1 note FOLLOW UP 0600 [facility] Last Admin: 08/05/19 05:44 Dose: Not Given Polyethylene Glycol/Electrolytes (Miralax*) 17 gm PO DAILY [facility] Last Admin: 08/05/19 07:52 Dose: Not Given Tiotropium [place] (Spiriva Respimat 2.5 Mcg) 2 puff INH DAILY [facility] Last Admin: 08/05/19 08:38 Dose: 2 puff Vital Signs - 8 hr 12/23/19 12/23/19 12/23/19 03:37 07:24 07:45 Temperature 98.5 F 98.1 F Pulse Rate 83 78 Respiratory 16 18 16 Rate Blood Pressure 129/40 138/45 (mmHg) O2 Sat by Pulse 88 93 Oximetry Oxygen Devices in Use Now: Nasal Cannula Appearance: 79 yo F in nAD, AAOx3 Eyes: No Scleral Icterus, PERRLA Ears/Nose/Mouth/Throat: NL Teeth, Lips, Gums, Mucous Membranes Moist Neck: NL Appearance and Movements; NL JVP, Trachea Midline Respiratory: Symmetrical Chest Expansion and Respiratory Effort, Clear to Auscultation Cardiovascular: NL Sounds; No Murmurs; No JVD, RRR Abdominal: NL Sounds; No Tenderness; No Distention Lymphatic: No Cervical Adenopathy Extremities: - - left knee effusion noted Skin: No Rash or Ulcers, No Nodules or Sclerosis Neurological: Alert and Oriented x 3, NL Muscle Strength and Tone Result Diagrams: 08/05/19 04:33 08/05/19 04:33 Assess/Plan/Problems-Billing Assessment: 79 yo f with h/o schizophrenia, COPD on 02 at 4L, CVA, recent knee replacement (11/30), uses a walker, s/p mechanical fall with left hip fx - Patient Problems (1) Closed left hip fracture Comment: for OR today Her RCRI score is 1 (due to h/o CVA), giving her 6% risk of complications. Her ACS preop risk score) calculated for hip replacement surgery shows 4.8% of serious complications. pt's EKG is unchanged. Her exercise capacity is limited due to use of walker and chronic 02 use at 4l. She is optimized for the anticipated procedure and accepts the risk. CXR at admission showed opacities but was suboptimal and clincally pt had no resp problems, repeat CXR WNL on 08/03/19 (2) Swelling of joint of left knee Comment: -with effusion after a fall -s/p L TKR 11/30 -ortho following (3) COPD (chronic obstructive pulmonary disease) Comment: -not in exacerbation -Continue Spiriva -at baseline 4l 02 (4) GERD (gastroesophageal reflux disease) Comment: -Continue pantoprazole (5) Schizophrenia Comment: cont olanzepine (6) Anemia Comment: normocytic, Hb 9-10 at baseline for the past year. Iron studies show Iron deff, s/p IV iron on 08/04/19 (7) DVT prophylaxis Comment: HSQ Not sure why pt was on eliquis at home. She had been on no anticoagulants before her knee surgery in 11/2018, after that she was started on Eliquis post op and it was continued till her current admission. Pt is not aware of being on anticoagulant. (8) Thyroid nodule Comment: 4.1 cm thyroid nodule noted as "low suspicion " on thyroid US -pt should have a bx as outpatient Status and Disposition: inpatient
[2019-08-05] MEDS ORDERED: KETAMINE HCL* 50 MG/ML 10 ML VIAL ONE (15:40)
[2019-08-05] MEDS ORDERED: Midazolam* 1 MG/ML 2 ML VIAL (2 MG) ONE (15:40)
[2019-08-05] MEDS ORDERED: ceFAZolin 2 GM in NS PREMIX(*) 2 GM/100 ML BAG IVPB ONE (15:44)
[2019-08-05] MEDS ORDERED: Bupivacaine 0.5% SDV PF* 30ML VIAL ONE (15:46)
[2019-08-05] MEDS ORDERED: Bupivacaine 0.25% EPI 200,000* 30 ML SDV ONE (15:51)
[2019-08-05] MEDS ORDERED: traMADol TAB* 50 MG PO PRN (19:31)
[2019-08-05] MEDS ORDERED: Acetaminophen TAB* 325 MG PO SCH (20:00)
[2019-08-05] MEDS: OLANzapine TAB*ODT* 5 MG PO SCH (22:53)
[2019-08-06] MEDS: ceFAZolin 1 GM* Q8H (AddVan) IVPB SCH ×6 (00:10→16:18)
[2019-08-06] MEDS: Acetaminophen TAB* 325 MG PO SCH ×5 (00:12→23:57)
[2019-08-06 05:25] LABS: ABS Basophils 0.1 10^3/ul (0-0.2); ABS Eosinophils 0.1 10^3/ul (0-0.6); ABS Lymphocytes 0.9 10^3/ul (1.0-4.8); ABS Monocytes 0.8 10^3/ul (0-0.8); ABS Neutrophils 4.8 10^3/ul (1.5-7.7); Eosinophil % 1.7 %; Hematocrit 28 % (35-47); Lymphocyte % 13.5 %; Mean Corpuscular HGB Conc 32 g/dL (31-36); Mean Corpuscular Hemoglobin 26 pg (27-31); Mean Corpuscular Volume 83 fL (80-97); Mean Platelet Volume 8.8 fL (7.4-10.4); Platelet Count 157 10^3/uL (150-450); Red Blood Count 3.43 10^6 /uL (3.70-4.87); Red Cell Distribution Width 15 % (10-15); White Blood Count 6.7 10^3/uL (3.5-10.8)
[2019-08-06 05:45] LABS: BUN/Creatinine Ratio 27.5 (8-20); Calcium 8.1 mg/dL (8.6-10.3); EGFR African American 186.8 (>60); EGFR Non-African American 154.4 (>60); Potassium 3.7 mmol/L (3.5-5.0)
[2019-08-06] MEDS: Nicotine Patch Removal NOTE FOLLOW UP SCH (06:18)
--- NOTE | 2019-08-06 06:53 | OP ---
OPERATIVE REPORT: DATE OF OPERATION: 08/05/19 - Inpatient, room [facility]- DATE OF : 42 SURGEON: Randell Washington MD ANESTHESIOLOGIST: Montrell Campo MD ANESTHESIA: Spinal and sedation. PRE-OP DIAGNOSIS: Left intertrochanteric hip fracture. POST-OP DIAGNOSIS: Left intertrochanteric hip fracture. OPERATIVE PROCEDURE: Gamma nailing, left hip fracture. ESTIMATED BLOOD LOSS: 25 cc. COMPLICATIONS: None. HARDWARE: Kindra short gamma nail 11 x 180 mm x 125 degrees, 90 mm lag screw, 1 distal lock in the dynamic hole. SUMMARY: Ms. Watson is a 79-year-old female who had fallen this past Monday. She was, however, on Eliquis and as a result, the fracture was unable to be addressed until 48 hours after her last dose. I had finished my surgical cases today and Dr. Johns had asked that if it was possible that we add her on to a regular schedule, so she could have to be fixed now instead of during the late evening hours. I discussed this with Mrs. Watson. She was very willing to go ahead and have the hip fixed now. Risks of surgery such as infection, scar formation, stiffness, DVT, pulmonary embolism were some of the risks discussed. She had wished to proceed. DESCRIPTION OF PROCEDURE: The patient was brought to the OR and spinal anesthesia was introduced. She was then moved on the fracture table so that the right leg was abducted in the leg ashraf and traction was placed on the left leg. Traction was adjusted and using C-arm guidance until her AP x-ray was perfect and on her lateral, she was just a little bit displaced. Overall, her alignment was very good and I thought it would be quite acceptable. Left hip area was prepped and then draped. Skin over the incision layer was infiltrated using 10 cc of 0.25% Marcaine with epinephrine and an incision was made above the level of the greater trochanter. Incision was carried down through the skin and subcutaneous tissues. Small bleeders encountered were ligated using electrocautery. Fascia was easily found and sharply incised. Rowe was then used to split the muscle fibers in the line that were running and I could feel the tip of her great troch. Awl was then placed over the greater troch and C-arm guidance was used to make sure I was in a good starting position and this was adjusted a little bit until the start hole looked good. This was just pushed in a little bit to make sure I was well aligned and then the lateral was checked. On the lateral, it could be seen I was too posterior and so this was removed and then moved upwards to make sure I could come in, so that I would come right down the shaft of femur. AP was then checked again and alignment appeared good and awl was pushed in further. This was checked again in AP and lateral views and I was down and into the shaft. Guidewire was placed downwards by hand easily and awl was removed. Reamer was run over the guidewire and positioning seemed quite good. Gamma nail with the targeting arm was then fully downwards and was nicely seated. This was adjusted until it appeared that the hip screw would come nicely across the neck and into the head. Guidewire was run upwards in the AP view and the alignment appeared good , but on the lateral view, it could be seen I was angling a little bit too posterior. This was reversed and re-run using C-arm guidance again and this time I came nicely up and into the center of the head on the lateral view. On the AP view, I was just a little bit superior, but because overall alignment appeared good I deemed this acceptable. Tip was run right to the subcortical bone and portion of the guidewire sticking up was measured at 90 mm. A 90-mm screw was called for and placed and I had a good bite by hand. Locking screw was then placed and guidewire was removed. Distal target arm was then used to place the dynamic locking screw and in similar fashion, skin was incised, soft tissues were bluntly split and the guide was placed down to the bone. Bone was then drilled, measured and a 35-mm screw placed. Guiding arm was removed and final AP and lateral views were taken and saved. Wounds were irrigated using a bulb syringe and the fascia was closed using a 0 Vicryl stitch. Subcutaneous tissues were reapproximated using 2-0 Vicryl. Skin was closed using osiel. Sterile dressing was applied. The patient was then transferred to the hospital bed and was stable on transfer to the recovery room. [id number]/CPS #: [id number] MTDLorie
[2019-08-06] MEDS: NS 0.9% 1000 ML** 1,000 ML IV SCH ×2 (08:01→21:45)
[2019-08-06] MEDS: SPIRIVA Respimat* (tiotropium) 2.5 mcg/inh Inhaler INH SCH ×2 (09:13→10:23)
--- NOTE | 2019-08-06 10:19 | PN ---
Progress Note - Progress Note Date of Service: 08/06/19 SOAP: Subjective: [Pt seen lying in bed this am. She is doing well, pain is well controlled. She denies any chest pain, sob, nausea, vomiting. Objective: NAD. AAOx3. pleasant LLE: Dressing is c/d/i. +df/pf. NVI distally. calf soft and non tender. Vital Signs Temp 98.1 F 08/06/19 07:25 Pulse 79 08/06/19 07:25 Resp 16 08/06/19 07:25 BP 124/37 08/06/19 07:25 Pulse Ox 94 08/06/19 07:25 Intake & Output 08/05/19 08/06/19 08/06/19 18:59 06:59 18:59 Intake Total 300 300 964 Output Total 200 Balance 300 100 964 Weight 118 lb Intake: IV Fluids 300 909 LR 300 NS (0.9%) 909 IVPB 55 ABX - CEFAZOLIN 55 Oral 0 300 Output: Urine 0 Butler 200 Other: Date of Last Bowel 08/05/2019 Movement # Bowel Movements 2 Estimated Stool Amount Medium Assessment: POD 1 Left hip gamma nail . Plan: Heparin /5000 WBAT PT/OT Awaiting rehab placement.
[2019-08-06] MEDS: Atorvastatin* 40 MG TAB PO SCH (10:22)
[2019-08-06] MEDS: Polyethylene Glycol 3350* 17 GM PACKET PO SCH (10:22)
[2019-08-06] MEDS: Pantoprazole TAB * 40 MG TAB PO SCH (10:22)
[2019-08-06] MEDS: PARoxetine HCL TAB* 10 MG PO SCH (10:22)
[2019-08-06] MEDS: Nicotine PATCH 21 MG/24 HR* PATCH TRANSDERM SCH (10:35)
[2019-08-06] MEDS: Heparin VIAL(*) 5000 UNITS/ML VIAL (FIVE THOUSAND) SUBCUT SCH ×2 (12:41→20:09)
--- NOTE | 2019-08-06 16:47 | PN ---
Subjective Date of Service: 08/06/19 Interval History: Ms. Watson Objective Active Medications: Acetaminophen (Tylenol Tab*) 650 mg PO 0000,0600,1200,1800 [facility] Last Admin: 08/06/19 12:41 Dose: 650 mg Albuterol (Ventolin 2.5 Mg/3 Ml Neb.Darlene*) 2.5 mg INH [id number] AWAKE PRN PRN Reason: sob/wheezing Atorvastatin Calcium (Lipitor*) 40 mg PO DAILY [facility] Last Admin: 08/06/19 10:22 Dose: 40 mg Heparin Sodium (Porcine) (Heparin Vial(*)) 5,000 units SUBCUT Q8H [facility] Last Admin: 08/06/19 12:41 Dose: 5,000 units Sodium Chloride (Ns 0.9% 1000 Ml) 1,000 mls @ 75 mls/hr IV PER RATE [facility] Last Admin: 08/06/19 08:01 Dose: 75 mls/hr Morphine Sulfate (Morphine Inj (Syringe))*) 2 mg IV Q4H PRN PRN Reason: PAIN - SEVERE Nicotine (Nicotine Patch 21 Mg/24 Hr*) 1 patch TRANSDERM DAILY [facility] Last Admin: 08/06/19 10:35 Dose: Not Given Olanzapine (Zyprexa * Tab Odt) 15 mg PO BEDTIME [facility] Last Admin: 08/05/19 22:53 Dose: Not Given Oxycodone/Acetaminophen (Percocet 5/325 Tab*) 1 tab PO Q4H PRN PRN Reason: PAIN - MODERATE Last Admin: 08/03/19 09:15 Dose: 1 tab Pantoprazole Sodium (Protonix Tab*) 40 mg PO DAILY [facility] Last Admin: 08/06/19 10:22 Dose: 40 mg Paroxetine HCl (Paxil Tab*) 30 mg PO DAILY [facility] Last Admin: 08/06/19 10:22 Dose: 30 mg Pharmacy Profile Note (Nicotine Patch Removal Note*) 1 note FOLLOW UP 0600 [facility] Last Admin: 08/06/19 06:18 Dose: Not Given Polyethylene Glycol/Electrolytes (Miralax*) 17 gm PO DAILY [facility] Last Admin: 08/06/19 10:22 Dose: 17 gm Tiotropium [place] (Spiriva Respimat 2.5 Mcg) 2 puff INH DAILY [facility] Last Admin: 08/06/19 10:23 Dose: 2 puff Tramadol HCl (Ultram*) 50 mg PO Q6H PRN PRN Reason: PAIN - MILD Vital Signs - 8 hr 08/06/19 08/06/19 11:26 16:06 Temperature 98.3 F 98.3 F Pulse Rate 72 80 Respiratory 17 18 Rate Blood Pressure 109/41 120/35 (mmHg) O2 Sat by Pulse 98 95 Oximetry Oxygen Devices in Use Now: Nasal Cannula Result Diagrams: 08/06/19 05:06 08/06/19 05:06 Assess/Plan/Problems-Billing Assessment: 79 yo f with h/o schizophrenia, COPD on 02 at 4L, CVA, recent knee replacement ( 11/30), uses a walker, s/p mechanical fall with left hip fx. - Patient Problems (1) Status post total left knee replacement Comment: -POD 1 L hip gx s/p gamma nail -management per ortho team (2) Low urine output Comment: -mejia removal this morning -pt has had 100cc UOP since 1030 this a.m. -PVR bladder scan for retention vs. low production (3) Swelling of joint of left knee Comment: -with effusion after a fall -s/p L TKR 11/30 -ortho following (4) Thyroid nodule Comment: -4.1 cm thyroid nodule noted as "low suspicion " on thyroid US -pt should have a bx outpatient (5) Anemia Comment: -normocytic, Hb 9-10 at baseline for the past year -iron studies show ADELE -s/p IV iron on 08/04/19 (6) COPD (chronic obstructive pulmonary disease) Comment: -not in exacerbation -continue Spiriva -at baseline 4L O2 (7) GERD (gastroesophageal reflux disease) Comment: -continue pantoprazole (8) Schizophrenia Comment: -cont olanzapine, paroxetine (9) DVT prophylaxis Comment: -HSQ -Not sure why pt was on eliquis at home. She had been on no anticoagulants before her knee surgery in 11/2018, after that she was started on Eliquis post op and it was continued till her current admission. Pt is not aware of being on anticoagulant. (10) Full code status Status and Disposition: Inpatient. Discharge when stable.
[2019-08-06] MEDS: OLANzapine TAB*ODT* 5 MG PO SCH (20:07)
[2019-08-07] MEDS: Heparin VIAL(*) 5000 UNITS/ML VIAL (FIVE THOUSAND) SUBCUT SCH ×3 (03:50→20:11)
[2019-08-07] MEDS: Acetaminophen TAB* 325 MG PO SCH ×3 (05:19→17:49)
[2019-08-07] MEDS: Nicotine Patch Removal NOTE FOLLOW UP SCH (05:23)
[2019-08-07 05:39] LABS: Hematocrit 26 % (35-47); Hemoglobin 8.2 g/dL (12.0-16.0); Mean Platelet Volume 8.8 fL (7.4-10.4); Platelet Count 157 10^3/uL (150-450)
[2019-08-07 06:01] LABS: BUN/Creatinine Ratio 28.9 (8-20); Blood Urea Nitrogen 13 mg/dL (6-24); CO2 Carbon Dioxide 36 mmol/L (22-32); Calcium 7.8 mg/dL (8.6-10.3); Chloride 105 mmol/L (101-111); EGFR African American 163.1 (>60); EGFR Non-African American 134.8 (>60); Glucose 134 mg/dL (70-100); Potassium 3.7 mmol/L (3.5-5.0); Sodium 141 mmol/L (135-145)
[2019-08-07] MEDS: SPIRIVA Respimat* (tiotropium) 2.5 mcg/inh Inhaler INH SCH (07:54)
[2019-08-07] MEDS: Polyethylene Glycol 3350* 17 GM PACKET PO SCH (08:00)
--- NOTE | 2019-08-07 08:05 | PN ---
Subjective Date of Service: 08/07/19 Interval History: Ms. Watson is feeling well this morning. She is sleeping on my arrival and reports feeling tired, but did sleep well overnight. Offers no complaints. Denies CP or SOB. No hip pain. No concerns from nursing. Family History: Unchanged from Admission Social History: Unchanged from Admission Past Medical History: Unchanged from Admission Objective Active Medications: Acetaminophen (Tylenol Tab*) 650 mg PO 0000,0600,1200,1800 [facility] Albuterol (Ventolin 2.5 Mg/3 Ml Neb.Darlene*) 2.5 mg INH [id number] AWAKE PRN sob/wheezing Atorvastatin Calcium (Lipitor*) 40 mg PO DAILY [facility] Heparin Sodium (Porcine) (Heparin Vial(*)) 5,000 units SUBCUT Q8H [facility] Sodium Chloride (Ns 0.9% 1000 Ml) 1,000 mls @ 75 mls/hr IV PER RATE [facility] Morphine Sulfate (Morphine Inj (Syringe))*) 2 mg IV Q4H PRN PAIN - SEVERE Nicotine (Nicotine Patch 21 Mg/24 Hr*) 1 patch TRANSDERM DAILY [facility] Olanzapine (Zyprexa * Tab Odt) 15 mg PO BEDTIME [facility] Oxycodone/Acetaminophen (Percocet 5/325 Tab*) 1 tab PO Q4H PRN PAIN - MODERATE Pantoprazole Sodium (Protonix Tab*) 40 mg PO DAILY [facility] Paroxetine HCl (Paxil Tab*) 30 mg PO DAILY [facility] Polyethylene Glycol/Electrolytes (Miralax*) 17 gm PO DAILY [facility] Tiotropium [place] (Spiriva Respimat 2.5 Mcg) 2 puff INH DAILY [facility] Tramadol HCl (Ultram*) 50 mg PO Q6H PRN PAIN - MILD Vital Signs - 8 hr 08/07/19 08/07/19 08/07/19 03:19 03:31 07:55 Temperature 98.9 F Pulse Rate 83 84 Respiratory 20 20 Rate Blood Pressure 141/42 (mmHg) O2 Sat by Pulse 91 94 93 Oximetry Oxygen Devices in Use Now: OxyMask - 4L Appearance: Elderly female lying in bed in NAD Neck: NL Appearance and Movements; NL JVP, Trachea Midline Respiratory: Symmetrical Chest Expansion and Respiratory Effort, Clear to Auscultation Cardiovascular: RRR, - - Grade 3/6 systolic murmur RUSB Extremities: No Edema Neurological: Alert and Oriented x 3 Lines/Tubes/Other Access: Clean, Dry and Intact Peripheral IV Nutrition: Taking PO's Result Diagrams: 08/07/19 05:21 08/07/19 05:21 Assess/Plan/Problems-Billing Assessment: Ms. Watson is a 79 yo F with PMH of schizophrenia, COPD on 4L, CVA, recent knee replacement (11/30), uses a walker; who presented to the ED s/p mechanical fall with left hip fracture. - Patient Problems (1) Closed left hip fracture Code(s): S72.002A - FRACTURE OF UNSP PART OF NECK OF LEFT FEMUR, INIT Comment : - S/p mechanical fall - POD #[address] Washington - Management per Ortho (2) Swelling of joint of left knee Code(s): M25.462 - EFFUSION, LEFT KNEE Comment: - With effusion after a fall - S/p L TKA November 2018 - Ortho following (3) Low urine output Code(s): R34 - ANURIA AND OLIGURIA Comment: - Based on I&O documentation, output now appears normal - Butler removed 08/06, PVR insignificant (4) Thyroid nodule Code(s): E04.1 - NONTOXIC SINGLE THYROID NODULE Comment: - Thyroid US notes 4.1 cm thyroid nodule noted as low suspicion - Should have outpatient f/u and likely biopsy (5) Anemia Code(s): D64.9 - ANEMIA, UNSPECIFIED Comment: - Normocytic, Hgb 9-10 at baseline for the past year - Iron studies show ADELE; ferritin level pending - S/p one dose IV iron on 08/04/19 (6) COPD (chronic obstructive pulmonary disease) Code(s): J44.9 - CHRONIC OBSTRUCTIVE PULMONARY DISEASE, UNSPECIFIED Comment: - At baseline 4L oxygen - Continue Spiriva (7) Schizophrenia Code(s): F20.9 - SCHIZOPHRENIA, UNSPECIFIED Comment: - Continue olanzapine, paroxetine (8) HLD (hyperlipidemia) Code(s): E78.5 - HYPERLIPIDEMIA, UNSPECIFIED Comment: - Continue atorvastatin (9) Tobacco abuse Code(s): Z72.0 - TOBACCO USE Comment: - Continue nicotine replacement (10) GERD (gastroesophageal reflux disease) Code(s): K21.9 - GASTRO-ESOPHAGEAL REFLUX DISEASE WITHOUT ESOPHAGITIS Comment : - Continue pantoprazole (11) DVT prophylaxis Comment: - Heparin SQ - Unclear why pt was on Eliquis [employer]; had not been on AC before her knee surgery in 11/2018, after that she was started on Eliquis postop and it was continued until current admission (12) Full code status Code(s): Z78.9 - OTHER SPECIFIED HEALTH STATUS Comment: Status and Disposition: Inpatient. Anticipate d/c to [facility] when medically stable, hopefully later this week. Attending: Radha Urrutia
[2019-08-07 09:02] LABS: Ferritin 158.1 ng/mL (11-307)
[2019-08-07] MEDS: PARoxetine HCL TAB* 10 MG PO SCH (09:50)
[2019-08-07] MEDS: Pantoprazole TAB * 40 MG TAB PO SCH (09:50)
[2019-08-07] MEDS: Atorvastatin* 40 MG TAB PO SCH (09:50)
[2019-08-07] MEDS: Nicotine PATCH 21 MG/24 HR* PATCH TRANSDERM SCH (09:56)
--- NOTE | 2019-08-07 10:52 | PN ---
Progress Note - Progress Note Date of Service: 08/07/19 SOAP: Subjective: [Patient seen sitting in chair. She denies any hip pain. She denies CP, SOB, f/c , n/v. She is comfortable as we wait for rehab placement. Objective: [General: A&O. NAD. LLE: Dressing changed today, incision C/D/I with no erythema, warmth or bruising. She was able to stand with walker for dressing change. NT thigh and calf. No palpable cords, erythema or swelling of calf. + f/e L knee. + DF/PF L ankle. NVI distally. ] Assessment: [POD#2 Left hip gamma nail] Plan: Cont Heparin /5000 WBAT PT/OT Cont pain meds PRN Awaiting rehab placement. ] Vital Signs Temp Pulse Resp BP Pulse Ox 98.9 F 78 16 128/45 97 08/07/19 08:11 08/07/19 08:11 08/07/19 08:11 08/07/19 08:11 08/07/19 08:11 Laboratory Last Values WBC 6.7 10^3/uL (3.5-10.8) 08/06/19 05:06 RBC 3.43 10^6 /uL (3.70-4.87) L 08/06/19 05:06 Hgb 8.2 g/dL (12.0-16.0) L 08/07/19 05:21 Hct 26 % (35-47) L 08/07/19 05:21 MCV 83 fL (80-97) 08/06/19 05:06 MCH 26 pg (27-31) L 08/06/19 05:06 MCHC 32 g/dL (31-36) 08/06/19 05:06 RDW 15 % (10-15) 08/06/19 05:06 Plt Count 157 10^3/uL (150-450) 08/07/19 05:21 MPV 8.8 fL (7.4-10.4) 08/07/19 05:21 Neut % (Auto) 71.3 % 08/06/19 05:06 Lymph % (Auto) 13.5 % 08/06/19 05:06 [place] % (Auto) 12.6 % 08/06/19 05:06 Eos % (Auto) 1.7 % 08/06/19 05:06 Baso % (Auto) 0.9 % 08/06/19 05:06 Absolute Neuts (auto) 4.8 10^3/ul (1.5-7.7) 08/06/19 05:06 Absolute Lymphs (auto) 0.9 10^3/ul (1.0-4.8) L 08/06/19 05:06 Absolute Monos (auto) 0.8 10^3/ul (0-0.8) 08/06/19 05:06 Absolute Eos (auto) 0.1 10^3/ul (0-0.6) 08/06/19 05:06 Absolute Basos (auto) 0.1 10^3/ul (0-0.2) 08/06/19 05:06 Absolute Nucleated RBC 0.0 10^3/ul 08/06/19 05:06 Nucleated RBC % 0.0 08/06/19 05:06 INR (Anticoag Therapy) 1.09 (0.82-1.09) 08/03/19 05:20 Sodium 141 mmol/L (135-145) 08/07/19 05:21 Potassium 3.7 mmol/L (3.5-5.0) 08/07/19 05:21 Chloride 105 mmol/L (101-111) 08/07/19 05:21 Carbon Dioxide 36 mmol/L (22-32) H 08/07/19 05:21 Anion Gap 4 mmol/L (2-11) 08/06/19 05:06 BUN 13 mg/dL (6-24) 08/07/19 05:21 Creatinine 0.45 mg/dL (0.51-0.95) L 08/07/19 05:21 Est GFR ( Amer) 163.1 (>60) 08/07/19 05:21 Est GFR (Non-Af Amer) 134.8 (>60) 08/07/19 05:21 BUN/Creatinine Ratio 28.9 (8-20) H 08/07/19 05:21 Glucose 134 mg/dL (70-100) H 08/07/19 05:21 Calcium 7.8 mg/dL (8.6-10.3) L 08/07/19 05:21 Iron < 20 ug/dL (50-212) L 08/03/19 05:20 TIBC 346 mcg/dL (250-450) 08/03/19 05:20 % Saturation 6 % (15-55) L 08/03/19 05:20 Unsat Iron Binding < 331 ug/dL 08/03/19 05:20 Transferrin 247 mg/dL (203-362) 08/03/19 05:20 Ferritin 158.1 ng/mL (11-307) 08/07/19 05:21 Total Bilirubin 0.30 mg/dL (0.2-1.0) 08/02/19 10:37 AST 14 U/L (13-39) 08/02/19 10:37 ALT 10 U/L (7-52) 08/02/19 10:37 Alkaline Phosphatase 55 U/L (34-104) 08/02/19 10:37 B-Natriuretic Peptide 34 pg/mL (<=100) 08/02/19 10:37 Total Protein 6.5 g/dL (6.4-8.9) 08/02/19 10:37 Albumin 3.8 g/dL (3.2-5.2) 08/02/19 10:37 Globulin 2.7 g/dL (2-4) 08/02/19 10:37 Albumin/Globulin Ratio 1.4 (1-3) 08/02/19 10:37 Vitamin B12 285 pg/mL (180-914) 08/03/19 05:20 Folate 11.52 ng/mL (>3.99) 08/03/19 05:20 Urine Color Yellow 08/02/19 12:43 Urine Appearance Cloudy 08/02/19 12:43 Urine pH 7.0 (5-9) 08/02/19 12:43 Ur Specific [place] 1.010 (1.010-1.030) 08/02/19 12:43 Urine Protein Negative (Negative) 08/02/19 12:43 Urine Ketones Trace (Negative) A 08/02/19 12:43 Urine Blood Negative (Negative) 08/02/19 12:43 Urine Nitrate Negative (Negative) 08/02/19 12:43 Urine Bilirubin Negative (Negative) 08/02/19 12:43 Urine Urobilinogen Negative (Negative) 08/02/19 12:43 Ur Leukocyte Esterase Negative (Negative) 08/02/19 12:43 Urine Glucose Negative (Negative) 08/02/19 12:43
[2019-08-07] MEDS: OLANzapine TAB*ODT* 5 MG PO SCH (20:10)
[2019-08-08] MEDS: Acetaminophen TAB* 325 MG PO SCH ×4 (00:19→17:19)
[2019-08-08] MEDS: Heparin VIAL(*) 5000 UNITS/ML VIAL (FIVE THOUSAND) SUBCUT SCH ×3 (04:00→20:33)
[2019-08-08 05:56] LABS: Hematocrit 25 % (35-47); Hemoglobin 7.8 g/dL (12.0-16.0); Mean Platelet Volume 8.2 fL (7.4-10.4); Platelet Count 174 10^3/uL (150-450)
[2019-08-08] MEDS: Nicotine Patch Removal NOTE FOLLOW UP SCH (05:56)
[2019-08-08 06:11] LABS: BUN/Creatinine Ratio 28.9 (8-20); Calcium 8.1 mg/dL (8.6-10.3); EGFR African American 198.2 (>60); EGFR Non-African American 163.8 (>60); Potassium 3.8 mmol/L (3.5-5.0)
[2019-08-08] MEDS: Nicotine PATCH 21 MG/24 HR* PATCH TRANSDERM SCH (08:24)
[2019-08-08] MEDS: Polyethylene Glycol 3350* 17 GM PACKET PO SCH (08:25)
[2019-08-08] MEDS: Atorvastatin* 40 MG TAB PO SCH (08:26)
[2019-08-08] MEDS: Pantoprazole TAB * 40 MG TAB PO SCH (08:26)
[2019-08-08] MEDS: PARoxetine HCL TAB* 10 MG PO SCH (08:26)
[2019-08-08] MEDS: SPIRIVA Respimat* (tiotropium) 2.5 mcg/inh Inhaler INH SCH (08:28)
--- NOTE | 2019-08-08 10:08 | PN ---
Progress Note - Progress Note Date of Service: 08/08/19 SOAP: Subjective: [Patient seen sitting in chair. She denies any hip pain. She denies CP, SOB, f/c , n/v. She is comfortable as we wait for rehab placement. She has been able to produce a bowel movement. Objective: [General: A&O. NAD. LLE: Dressing changed today, incision C/D/I with no erythema, warmth or bruising. She was able to stand with walker for dressing change. NT thigh and calf. No palpable cords, erythema or swelling of calf. + f/e L knee. + DF/PF L ankle. NVI distally. ] Vital Signs Temp 98.3 F 08/08/19 07:21 Pulse 77 08/08/19 07:21 Resp 15 08/08/19 07:21 BP 127/44 08/08/19 07:21 Pulse Ox 97 08/08/19 07:21 Intake & Output 08/07/19 08/08/19 08/08/19 18:59 06:59 18:59 Intake Total 1315 0 Output Total 150 Balance 1165 0 Intake: IV Fluids 805 NS (0.9%) 805 Oral 510 0 Output: Urine 150 Other: Estimated Void Medium Medium # Voids 3 1 Assessment: [POD#3 Left hip gamma nail] Plan: Cont Heparin /5000 WBAT PT/OT Cont pain meds PRN Awaiting rehab placement.]
--- NOTE | 2019-08-08 11:45 | PN ---
Subjective Date of Service: 08/08/19 Interval History: Ms. Watson is feeling well today. She offers no complaints. Not having any pain this morning. She is upset that she had to spend [place] in the hospital. Denies CP or SOB. No concerns from nursing. Family History: Unchanged from Admission Social History: Unchanged from Admission Past Medical History: Unchanged from Admission Objective Active Medications: Acetaminophen (Tylenol Tab*) 650 mg PO 0000,0600,1200,1800 [facility] Albuterol (Ventolin 2.5 Mg/3 Ml Neb.Darlene*) 2.5 mg INH [id number] AWAKE PRN sob/wheezing Atorvastatin Calcium (Lipitor*) 40 mg PO DAILY [facility] Heparin Sodium (Porcine) (Heparin Vial(*)) 5,000 units SUBCUT Q8H [facility] Morphine Sulfate (Morphine Inj (Syringe))*) 2 mg IV Q4H PRN PAIN - SEVERE Nicotine (Nicotine Patch 21 Mg/24 Hr*) 1 patch TRANSDERM DAILY [facility] Olanzapine (Zyprexa * Tab Odt) 15 mg PO BEDTIME [facility] Oxycodone/Acetaminophen (Percocet 5/325 Tab*) 1 tab PO Q4H PRN PAIN - MODERATE Pantoprazole Sodium (Protonix Tab*) 40 mg PO DAILY [facility] Paroxetine HCl (Paxil Tab*) 30 mg PO DAILY [facility] Polyethylene Glycol/Electrolytes (Miralax*) 17 gm PO DAILY [facility] Tiotropium [place] (Spiriva Respimat 2.5 Mcg) 2 puff INH DAILY [facility] Tramadol HCl (Ultram*) 50 mg PO Q6H PRN PAIN - MILD Vital Signs - 8 hr 08/08/19 08/08/19 08/08/19 07:21 08:00 11:33 Temperature 98.3 F 98.5 F Pulse Rate 77 87 Respiratory 15 20 15 Rate Blood Pressure 127/44 140/46 (mmHg) O2 Sat by Pulse 97 99 Oximetry Oxygen Devices in Use Now: Nasal Cannula - 4L Appearance: Elderly female lying in bed in NAD Ears/Nose/Mouth/Throat: Mucous Membranes Moist Neck: NL Appearance and Movements; NL JVP, Trachea Midline Respiratory: Symmetrical Chest Expansion and Respiratory Effort, Clear to Auscultation Cardiovascular: NL Sounds; No Murmurs; No JVD Abdominal: NL Sounds; No Tenderness; No Distention Extremities: No Edema Neurological: Alert and Oriented x 3 Lines/Tubes/Other Access: Clean, Dry and Intact Peripheral IV Nutrition: Taking PO's Result Diagrams: 08/08/19 05:44 08/08/19 05:44 Assess/Plan/Problems-Billing Assessment: Ms. Watson is a 79 yo F with PMH of schizophrenia, COPD on 4L, CVA, recent knee replacement (11/30), uses a walker; who presented to the ED s/p mechanical fall with left hip fracture. - Patient Problems (1) Closed left hip fracture Code(s): S72.002A - FRACTURE OF UNSP PART OF NECK OF LEFT FEMUR, INIT Comment : - S/p mechanical fall - POD #[address] Washington - Management per Ortho (2) Anemia Code(s): D64.9 - ANEMIA, UNSPECIFIED Comment: - Normocytic, Hgb 9-10 at baseline for the past year, now worsened from acute blood loss - Transfuse for Hgb <7 (3) Swelling of joint of left knee Code(s): M25.462 - EFFUSION, LEFT KNEE Comment: - With effusion after a fall - S/p L TKA November 2018 - Ortho following (4) Thyroid nodule Code(s): E04.1 - NONTOXIC SINGLE THYROID NODULE Comment: - Thyroid US notes 4.1 cm thyroid nodule noted as low suspicion - Should have outpatient f/u and likely biopsy (5) Low urine output Code(s): R34 - ANURIA AND OLIGURIA Comment: - Based on I&O documentation, output now appears normal - Butler removed 08/06, PVR insignificant (6) COPD (chronic obstructive pulmonary disease) Code(s): J44.9 - CHRONIC OBSTRUCTIVE PULMONARY DISEASE, UNSPECIFIED Comment: - At baseline 4L oxygen - Continue Spiriva (7) Schizophrenia Code(s): F20.9 - SCHIZOPHRENIA, UNSPECIFIED Comment: - Continue olanzapine, paroxetine (8) HLD (hyperlipidemia) Code(s): E78.5 - HYPERLIPIDEMIA, UNSPECIFIED Comment: - Continue atorvastatin (9) Tobacco abuse Code(s): Z72.0 - TOBACCO USE Comment: - Continue nicotine replacement (10) GERD (gastroesophageal reflux disease) Code(s): K21.9 - GASTRO-ESOPHAGEAL REFLUX DISEASE WITHOUT ESOPHAGITIS Comment : - Continue pantoprazole (11) DVT prophylaxis Comment: - Heparin SQ - Unclear why pt was on Eliquis [employer] [employer] [facility]; had not been on AC before her knee surgery in 11/2018, after that she was started on Eliquis postop and it was continued until current admission (12) Full code status Code(s): Z78.9 - OTHER SPECIFIED HEALTH STATUS Comment: Status and Disposition: Inpatient. Anticipate d/c to [facility] when offered a bed, hopefully later this week. Attending: Sarah Lange
[2019-08-08] MEDS: OLANzapine TAB*ODT* 5 MG PO SCH (20:31)
[2019-08-09] MEDS: Acetaminophen TAB* 325 MG PO SCH ×3 (00:12→12:24)
[2019-08-09] MEDS: Heparin VIAL(*) 5000 UNITS/ML VIAL (FIVE THOUSAND) SUBCUT SCH (04:08)
[2019-08-09 05:20] LABS: Hematocrit 26 % (35-47); Mean Platelet Volume 8.6 fL (7.4-10.4); Platelet Count 202 10^3/uL (150-450)
[2019-08-09 05:26] LABS: BUN/Creatinine Ratio 30.8 (8-20); EGFR African American 192.3 (>60); Potassium 4.1 mmol/L (3.5-5.0)
[2019-08-09] MEDS: Nicotine Patch Removal NOTE FOLLOW UP SCH (05:27)
[2019-08-09] MEDS: Nicotine PATCH 21 MG/24 HR* PATCH TRANSDERM SCH (09:27)
[2019-08-09] MEDS: Polyethylene Glycol 3350* 17 GM PACKET PO SCH (09:32)
[2019-08-09] MEDS: SPIRIVA Respimat* (tiotropium) 2.5 mcg/inh Inhaler INH SCH (09:33)
[2019-08-09] MEDS: Pantoprazole TAB * 40 MG TAB PO SCH (09:33)
[2019-08-09] MEDS: PARoxetine HCL TAB* 10 MG PO SCH (09:33)
[2019-08-09] MEDS: Atorvastatin* 40 MG TAB PO SCH (09:33)
--- NOTE | 2019-08-09 09:57 | PN ---
Progress Note - Progress Note Date of Service: 08/09/19 SOAP: Subjective: atient seen sitting in chair. She denies any hip pain. She denies CP, SOB, f/c, n/v. She is comfortable as we wait for rehab placement. She has been able to produce a bowel movement. Objective: [General: A&O. NAD. LLE: Dressing C/D/I. NT thigh and calf. No palpable cords, erythema or swelling of calf. + f/e L knee. + DF/PF L ankle. NVI distally. ] Vital Signs Temp 98.9 F 08/09/19 07:38 Pulse 75 08/09/19 07:38 Resp 16 08/09/19 07:38 BP 128/46 08/09/19 07:38 Pulse Ox 96 08/09/19 07:38 Intake & Output 08/08/19 08/09/19 08/09/19 18:59 06:59 18:59 Intake Total 1740 650 Output Total 200 0 Balance 1540 650 Intake: Oral 1740 650 Output: Urine 200 0 Other: Estimated Void Large Large # Bowel Movements 1 Estimated Stool Amount Medium # Voids 1 1 Assessment: [POD#4 Left hip gamma nail] Plan: Cont Heparin /5000 WBAT PT/OT Cont pain meds PRN Awaiting rehab placement.]
[2019-08-09 11:33] VITALS: BP 123/43
--- NOTE | 2019-08-09 13:02 | DS ---
CC: Dr. Valentino Correia; Dr. Randell Washington* DISCHARGE SUMMARY: DATE OF ADMISSION: 08/02/19 DATE OF DISCHARGE: 08/09/19 PRIMARY CARE PROVIDER: Dr. Valentino Correia. ORTHOPEDIC SURGEON: Dr. Randell Washington. ATTENDING PHYSICIAN: Dr. Sarah Lange* (dictated by Johanna Palma NP). PRIMARY DIAGNOSES: 1. Left hip fracture, status post open reduction internal fixation with gamma nail. 2. Chronic anemia with superimposed acute blood loss anemia. 3. Left knee joint effusion secondary to fall. 4. Thyroid nodule. SECONDARY DIAGNOSES: 1. Chronic obstructive pulmonary disease. 2. Schizophrenia. 3. Hyperlipidemia. 4. Gastroesophageal reflux disease. 5. Tobacco abuse. STUDIES WHILE IN THE HOSPITAL: 1. Chest x-ray on 08/02/19 reads as right apical and mild bibasilar opacification in the setting of poor inspiration. Recommend repeat chest radiograph with improved inspiration when clinically appropriate. Large hiatal hernia. 2. Left hip x-ray on 08/02/19 reads as complicated minimally impacted intertrochanteric fracture of the left hip, osteopenia. Degenerative changes described in the body of the report. 3. Left knee x-ray on 08/02/19 reads as prepatellar soft tissue swelling with a large effusion, osteopenia with no displaced fracture. Left total knee arthroplasty. 4. Left femur x-ray on 08/02/19 reads as again noted as a comminuted fracture of the proximal left femur. 5. EKG on 08/02/19 showed normal sinus rhythm at a rate of 69. No ST changes. QTc 476. 6. Brain CT on 08/02/19 reads as no acute intracranial pathology. Diffuse involutional change with chronic small vessel ischemic changes. 7. Cervical spine CT on 08/02/19 reads as no cervical spine fracture. Varying degrees of multilevel spondylosis does not result in severe osseous encroachment of the spinal canal. Severe multilevel neural foraminal stenosis described in the body of the report. Grade 1 anterolisthesis of C6-C7. A nodule in the right lobe of the thyroid measures up to 4.1 cm. This should be further characterized by ultrasound. 8. Chest x-ray on 08/03/19 reads as no radiographic evidence for acute cardiopulmonary abnormality. 9. Thyroid ultrasound on 08/04/19 reads as low suspicion nodule of the lower thyroid bilaterally measuring up to 4.3 cm on the right and 1.7 cm on the left. The [employer] recommends consideration of fine needle aspiration of low suspicion nodules greater than or equal to 1.5 cm in size. PROCEDURES WHILE IN THE HOSPITAL: Gamma nailing of the left hip fracture with Dr. Washington on 08/05/19. HISTORY OF PRESENT ILLNESS AND HOSPITAL COURSE: Ms. Watson is a 79-year-old female with past medical history of COPD, on 4 L; depression; GERD; hyperlipidemia; schizophrenia; CVA; asthma; and coronary artery disease who presented to the emergency room on 08/02/19 with complaints of left hip pain. Please see the history and physical by Alannah Azul NP, for complete summary of the events leading up to this hospitalization. In short, the patient was getting out of a car when she had a mechanical fall in a parking lot and had immediate left hip pain, so presented to the emergency room. In the emergency room, the patient had imaging as noted above. Vitals were noted to be stable and lab work was noted to be consistent with her baseline. She was admitted by the Hospitalist Service. Orthopedics was consulted and the patient was seen by ALEXY Maier, on 08/02. At that point, he advised that the patient would be taken to the OR on Monday. Of note, the patient was on Eliquis when she was admitted to the hospital. It appears as though she had been on this Eliquis since her left total knee replacement in November 2018. She does not have any other need for anticoagulation, so it is unclear why this medication was not discontinued, although ultimately she did need a Eliquis washout. She had an uneventful weekend and ultimately went to the OR on 08/05/[address] Washington. At that time, she had a gamma nail placed in the left hip. She tolerated the procedure well with minimal blood loss. Recovery was mostly uneventful except for a period of low urine output which improved with increased oral intake and some additional IV fluids. She has remained on her baseline oxygen requirements of 4 L. She was noted to have an effusion in the left knee secondary to the fall, although Orthopedics is not recommending any intervention at this time. The patient has been requiring minimal pain medication and has been working with Physical Therapy, who has determined that the patient will benefit from short- term rehab before returning home. The patient has been cleared for discharge by Orthopedics and the patient's family has accepted a rehab bed at [facility]. On exam, the patient reports feeling well and offers no complaints except for feeling tired this morning. She is alert and oriented x4 and has no focal neurological deficits. Heart has a regular rate and rhythm without murmurs, rubs, or gallops. Lungs are clear to auscultation without rhonchi, wheezes, or rubs. There is no significant edema. There is a surgical dressing intact to the left hip. Physical exam is otherwise benign. Ms. Watson is stable for discharge. Most recent vitals are as follows: Temp 98.9, heart rate 75, respiratory rate 20, oxygen saturation 96% on 4 L, blood pressure 128/46. DISCHARGE MEDICATIONS: New medications: 1. Acetaminophen 650 mg p.o. 4 times daily. 2. Lovenox 40 mg subcu daily x30 days. 3. Nicotine patch 21 mg 1 patch transdermal daily. 4. Percocet 5/325 one tab p.o. q.4 hours p.r.n. pain. Continued medications: 1. Atorvastatin 40 mg p.o. daily. 2. Olanzapine 15 mg p.o. at bedtime. 3. Omeprazole 40 mg p.o. daily. 4. Paroxetine 30 mg p.o. daily. 5. MiraLAX 17 g p.o. daily. 6. Tiotropium 1 cap inhalation daily. 7. Fosamax 70 mg p.o. weekly. 8. Aspirin 81 mg p.o. daily. 9. Calcium/vitamin D 1 tab p.o. b.i.d. 10. Docusate 200 mg p.o. at bedtime. 11. Oxybutynin 5 mg p.o. t.i.d. Discontinued medications: 1. Eliquis. 2. Ibuprofen. DISCHARGE PLAN: Ms. Watson will be discharged to subacute rehab. Diet will be regular as tolerated. Activity per Orthopedics will be weightbearing as tolerated. Medications are noted above. The patient will need to remain on Lovenox for an additional 30 days for DVT prophylaxis. At that point, anticoagulation can be discontinued. She additionally can continue Percocet for pain management, although I would anticipate she will not need a significant amount of this going forward. She can continue her other usual medications as noted above except for Eliquis and ibuprofen. The patient should follow up with Dr. Washington as previously instructed. She will need to follow up with the provider at [facility] and thereafter can follow up with her primary care provider after discharge. She should return to the emergency room or nearest hospital for any worsening of symptoms, shortness of breath, lightheadedness, dizziness, chest discomfort, high fevers, chills, night sweats , loss of consciousness, or any other worrisome signs or symptoms. DISCHARGE CONDITION: Stable. DISCHARGE DISPOSITION: Shelter Facility, [facility]. This is a summarized report of a complex medical history and hospital stay. For further details, please see the entire medical record. TIME SPENT: Approximately 45 minutes was spent on this discharge. JOHANNA PALMA NP [id number]/CPS #: [id number] [facility]
[2019-08-09] MEDS ORDERED: Enoxaparin(*) 40 MG/0.4 ML SYR SUBCUT SCH (14:00)
== END 2019-08-09 13:30 | DRG 481 ==
LOC: ED 09:54 → MEDTELE 13:08 → SSU 14:17
PROVIDERS: ADMIT Internal Medicine; ATTEND Internal Medicine
PROC: 0QS704Z Reposition Left Upper Femur with Internal Fixation Device, Open Approach (ICD-10-PCS; principal; 2019-08-05 15:00)
DX: S72.142A Displaced intertrochanteric fracture of left femur, initial encounter for closed fracture (principal); D62 Acute posthemorrhagic anemia; F17.210 Nicotine dependence, cigarettes, uncomplicated; E78.00 Pure hypercholesterolemia, unspecified; J44.9 Chronic obstructive pulmonary disease, unspecified; K21.9 Gastro-esophageal reflux disease without esophagitis; K44.9 Diaphragmatic hernia without obstruction or gangrene; K22.70 Barrett's esophagus without dysplasia; K57.90 Diverticulosis of intestine, part unspecified, without perforation or abscess without bleeding; M19.90 Unspecified osteoarthritis, unspecified site; F32.9 Major depressive disorder, single episode, unspecified; F20.9 Schizophrenia, unspecified; I25.10 Atherosclerotic heart disease of native coronary artery without angina pectoris; E04.1 Nontoxic single thyroid nodule; M25.462 Effusion, left knee; M48.02 Spinal stenosis, cervical region; R34 Anuria and oliguria; E78.5 Hyperlipidemia, unspecified; W18.39XA Other fall on same level, initial encounter; Z99.81 Dependence on supplemental oxygen; Y92.89 Other specified places as the place of occurrence of the external cause; Z79.82 Long term (current) use of aspirin; Z88.6 Allergy status to analgesic agent; Z86.73 Personal history of transient ischemic attack (TIA), and cerebral infarction without residual deficits; Z79.899 Other long term (current) drug therapy
CPT/HCPCS: 36415; 70450; 71045; 72125; 76000; 76536; 80048; 80053; 81003; 82607; 82728; 82746; 83540; 83550; 83880; 85014; 85018; 85025; 85027; 85049; 85610; 93005; 94640; 99284; A9270-GY; C1713; C1776; G8978-GP-CL; G8979-GP-CI; J0690; J1644; J2250; J2270; J2916; J3490; J3535